=== PATIENT | female | born 1945 | race Caucasian/White ===

== ENCOUNTER 2016-07-08 14:13 | Inpatient (IN) | payer MEDICARE ==
[2016-07-08 20:23] LABS: Glucose,Whole Blood 93 mg/dL (75-99)
[2016-07-08 20:31] VITALS: BMI 29.3
[2016-07-08] MEDS: SODIUM CHLORIDE 0.9% 1,000 ML IV SCH (23:05)
[2016-07-09] MEDS: SODIUM CHLORIDE 0.9% 1,000 ML IV SCH ×2 (06:10→16:12)
[2016-07-09 07:53] LABS: Glucose,Whole Blood 96 mg/dL (75-99)
[2016-07-09 08:07] LABS: Basophils % (A) 1 %; CH 31.4; CHCM 32.8; Eosinophils # (A) 0.1 k/uL (0-0.7); Eosinophils % (A) 2 %; HCT 32.4 % (34.0-46.0); HDW 2.93; HGB 10.4 gm/dL (11.4-16.0); Luc # (Auto) 0.07; Luc % (Auto) 2; Lymphocytes # (A) 0.5 k/uL (1.0-4.8); Lymphocytes % (A) 13 %; MCH 30.7 pg (25.0-35.0); MCV 96.1 fL (80.0-100.0); Mean Platelet Volume 8.1; Monocytes # (A) 0.3 k/uL (0-1.0); Monocytes % (A) 7 %; Neutrophils # (A) 2.7 k/uL (1.3-7.7); Neutrophils % (A) 74 %; RBC 3.37 m/uL (3.80-5.40); RDW 14.9 % (11.5-15.5); WBC 3.6 k/uL (3.8-10.6); WBC (Perox) 3.87
[2016-07-09 08:18] LABS: Anion Gap 14 mmol/L; Blood Urea Nitrogen 7 mg/dL (7-17); Calcium 8.3 mg/dL (8.4-10.2); Carbon Dioxide 24 mmol/L (22-30); Chloride 101 mmol/L (98-107); Glucose 95 mg/dL (74-99); Magnesium 1.3 mg/dL (1.6-2.3); Non-African American GFR(MDRD) >60 (>60 ml/min/1.73 sqM); Potassium 3.4 mmol/L (3.5-5.1); Sodium 139 mmol/L (137-145)
[2016-07-09] MEDS ORDERED: PANTOPRAZOLE 40 MG/10 ML VIAL IVP SCH (09:00)
[2016-07-09] MEDS: INSULIN LISPRO (humaLOG) 300 UNIT/3 ML VIAL SQ SCH ×4 (09:21→19:55)
[2016-07-09 11:28] LABS: Glucose,Whole Blood 102 mg/dL (75-99)
[2016-07-09] MEDS ORDERED: Potassium Replacement Protocol 1 EACH MISC MISCELLANE PRN (12:44)
[2016-07-09] MEDS ORDERED: NITROGLYCERIN SL TABS 0.4 MG TAB SUBLINGUAL PRN (12:45)
[2016-07-09] MEDS ORDERED: HYDROcodone/APAP 5-325MG 1 EACH TAB PO PRN (12:45)
[2016-07-09] MEDS: FLUCONAZOLE IN NACL,ISO-OSM 100 MG in SALINE 1 50ML.BAG IVPB SCH (13:35)
[2016-07-09] MEDS: MAGNESIUM SULFATE-D5W PMX 1 GM in DEXTROSE/WATER 1 100ML.BAG IVPB SCH ×3 (14:51→20:06)
--- NOTE | 2016-07-09 15:09 | FL ---
EXAMINATION TYPE: FL barium swallow w video DATE OF EXAM: 07/09/2016 2:41 PM MODIFIED SWALLOW / DEGLUTITION STUDY CLINICAL HISTORY: Dysphagia since CABG procedure mid-May. Choking and difficulty swallowing as w ell as weight loss.. TECHNIQUE: Deglutition study is performed utilizing thin liquid barium, honey and nectar thick liqui d barium, barium thick applesauce, and barium coated cracker. A total of 1.52 minutes of fluoroscopic time was utilized during procedure. COMPARISON: None. FINDINGS: Exam is suboptimal due to patient retching and vomiting especially with less viscous modali ties. There is difficulty initiating swallowing. Diminished mastication is seen with solid modalities tested. There is no evidence of penetration or aspiration with any modality tested. No significant pharyngeal residue was appreciated. IMPRESSION: Suboptimal study without penetration or aspiration noted. Please refer to speech therapi st notes for further details if necessary.
[2016-07-09] MEDS: IPRATROPIUM-ALBUTEROL 3 ML NEB INHALATION SCH ×2 (15:22→22:50)
[2016-07-09] MEDS: AMIODARONE 200 MG TAB PO SCH ×3 (15:30→19:56)
[2016-07-09] MEDS: POTASSIUM CHLORIDE 10 MEQ, LIDOCAINE 2% INJ 10 MG in SODIUM CHLORIDE 0.9% 100 ML IVPB SCH ×2 (16:06→17:26)
[2016-07-09] MEDS: POTASSIUM CHLORIDE 10 MEQ in WATER FOR INJECTION 1 100ML.BAG IVPB SCH ×2 (16:20→17:29)
[2016-07-09 16:55] LABS: Glucose,Whole Blood 121 mg/dL (75-99)
[2016-07-09 19:53] LABS: Glucose,Whole Blood 122 mg/dL (75-99)
[2016-07-09] MEDS: ATORVASTATIN 80 MG TAB PO SCH (19:55)
[2016-07-09] MEDS: ONDANSETRON 4 MG/2 ML VIAL IVP PRN (20:03)
--- NOTE | 2016-07-09 20:10 | HP ---
Patient with significant cardiac history with coronary artery disease and cardiac catheterization and stent placement in the past, came in, was admitted to [facility], subsequently transferred here. Patient was admitted with nausea, vomiting and dysphagia. Patient's symptoms did not improve for 2 to 3 days, after which patient was subsequently transferred here for further evaluation by Gastroenterology. Patient is on Protonix at this point of time. Patient underwent recent cardiac catheterization. Patient is on aspirin. The patient had a recent CABG. When I evaluated, patient is not nauseous and nausea is improved with Zofran. Patient denied any vomiting, but patient does have dysphagia, does not have any significant oral thrush. Patient denied any odynophagia. The patient's dysphagia started about 3 days ago all of a sudden, she says, worse with solids than liquids and because of which I ordered a barium swallow. Barium swallow apparently was within normal limits. Speech therapy evaluated the patient. I believe the patient's swallow problems are secondary to cognition rather than anything else and I also consulted Gastroenterology and started empirically on fluconazole as patient is complaining of other symptoms that are consistent with oral candidiasis. Although I did not see any significant candidal infection of the tongue at this point of time, the patient was treated for oral candidiasis in the past as well. Patient denied any fever, chills. Patient denied any shortness of breath or runny nose. Patient has not been getting Lasix or any of her medications at this point of time because the patient is not able to swallow anything. Will try and give her important medications like aspirin beyond that and amiodarone and fluconazole will be in the form of IV. Her past medical history is significant for CAD, NSTEMI and CABG in the past and atrial fibrillation, coronary artery disease, diabetes mellitus, hyperlipidemia, breast surgery, cholecystectomy, coronary artery bypass grafting, cardiac catheterization stent placement, tonsillectomy, right mastectomy, radiation therapy, recent CABG. ROS: All other systems were reviewed and were negative. SOCIAL HISTORY: Former smoker, quit smoking last year. Denied any alcohol abuse or any drug abuse. FAMILY HISTORY: Brother had a myocardial infarction ( ). Son had coronary artery disease, myocardial infarction. Mother had coronary disease and myocardial infarction. Home medications include: 1. Atorvastatin and 2. Lasix. Patient was treated for diastolic dysfunction and heart failure during her last hospitalization. 3. Hydrocodone/acetaminophen. ALLERGIES: No known drug allergies. PHYSICAL EXAMINATION: Temperature 97.7, pulse of 60, respiratory rate of 18, blood pressure is 138/76, saturating at 98% on room air. GENERAL: The patient appears to have some speech abnormality, really appears to be secondary to swollen tongue rather than any central speech abnormality. Alert and oriented x3. HEENT: Pupils are round and equally reacting to light. EOMI. No scleral icterus. No conjunctival pallor. Normocephalic, atraumatic. No pharyngeal erythema. No thyromegaly. CARDIOVASCULAR: S1 and S2 present. No murmurs, rubs, or gallops. PULMONARY: Chest is clear to auscultation, no wheezing or crackles. ABDOMEN: Soft, nontender, nondistended, normoactive bowel sounds. No palpable organomegaly. MUSCULOSKELETAL: No joint swelling or deformity. EXTREMITIES: No cyanosis, clubbing, or pedal edema. NEUROLOGICAL: Gross neurological examination did not reveal any focal deficits. SKIN: No rashes. LABORATORY DATA: CBC, CMP are abnormal for low potassium of 3.4 and low magnesium of 1.2, hemoglobin 10.4. The barium swallow as mentioned above. ASSESSMENT AND PLAN: 1. Dysphagia with nausea, vomiting. Nausea, vomiting resolved. Patient was started on fluconazole and will consult Gastroenterology. 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 2. Paroxysmal atrial fibrillation, rate controlled at this point of time. 3. Patient is on amiodarone, which we will try and give her so that her atrial fibrillation is not frustrated. 4. Diastolic dysfunction heart failure, not in acute exacerbation. I do not believe Lasix is necessary at this point of time, as patient is not taking much p.o. 5. Type 2 diabetes mellitus. 6. Hypertension. 7. History of breast cancer in remission. 8. Coronary artery disease. 9. Hypomagnesemia and hypokalemia secondary to nausea, vomiting, which will be supplemented. 10. For above-mentioned chronic medical problems, I will go ahead and continue her home medications. ROSIOD
[2016-07-09 22:37] VITALS: RESP 16
[2016-07-10 07:19] LABS: Glucose,Whole Blood 87 mg/dL (75-99)
[2016-07-10] MEDS: IPRATROPIUM-ALBUTEROL 3 ML NEB INHALATION SCH ×4 (07:31→19:09)
[2016-07-10 07:33] LABS: Anion Gap 8 mmol/L; Blood Urea Nitrogen 7 mg/dL (7-17); Calcium 8.1 mg/dL (8.4-10.2); Carbon Dioxide 24 mmol/L (22-30); Chloride 102 mmol/L (98-107); Glucose 95 mg/dL (74-99); Non-African American GFR(MDRD) >60 (>60 ml/min/1.73 sqM); Potassium 3.6 mmol/L (3.5-5.1); Sodium 134 mmol/L (137-145)
[2016-07-10] MEDS: SODIUM CHLORIDE 0.9% 1,000 ML IV SCH ×3 (07:39→20:53)
[2016-07-10] MEDS: CARVEDILOL 12.5 MG TAB PO SCH ×2 (07:58→08:06)
[2016-07-10] MEDS: INSULIN LISPRO (humaLOG) 300 UNIT/3 ML VIAL SQ SCH ×4 (07:58→20:50)
[2016-07-10] MEDS: LOSARTAN 25 MG TAB PO SCH (07:59)
[2016-07-10] MEDS: ASPIRIN 81 MG CHEW PO SCH ×2 (07:59→08:06)
[2016-07-10] MEDS: AMIODARONE 200 MG TAB PO SCH ×3 (07:59→20:46)
[2016-07-10] MEDS: PANTOPRAZOLE 40 MG TABLET PO SCH ×2 (07:59→08:06)
[2016-07-10] MEDS: FLUCONAZOLE IN NACL,ISO-OSM 100 MG in SALINE 1 50ML.BAG IVPB SCH (07:59)
--- NOTE | 2016-07-10 08:06 | XR ---
EXAMINATION TYPE: XR chest 1V DATE OF EXAM: 07/10/2016 7:36 AM CLINICAL HISTORY: Difficulty breathing and CHF progress study. History of CABG in May. TECHNIQUE: Single AP portable upright view of the chest is obtained. COMPARISON: Chest x-ray from June 07, 2016 FINDINGS: Post CABG changes with mediastinal clips and sternal wires is present. There is underlying emphysematous change with small left pleural effusion and associated left basilar atelectasis and/or infiltrate. There is improved central vascular congestion versus prior. Cardiomegaly is redemonstrate d. Right lung remains clear. Osseous structures are demineralized. Surgical clips overlie the right b reast. IMPRESSION: Chronic emphysematous change and cardiomegaly with persistent small left pleural effusion and associated left basilar atelectasis and/or infiltrate all redemonstrated.
[2016-07-10] MEDS: hydrALAZINE HCL 20 MG/ML 1 ML VIAL IVP PRN ×2 (08:14→20:54)
[2016-07-10 09:11] LABS: Basophils % (A) 0 %; CH 31.6; CHCM 33.3; Eosinophils # (A) 0.1 k/uL (0-0.7); Eosinophils % (A) 2 %; HCT 33.7 % (34.0-46.0); HDW 3.01; HGB 11.1 gm/dL (11.4-16.0); Luc # (Auto) 0.09; Luc % (Auto) 2; Lymphocytes # (A) 0.5 k/uL (1.0-4.8); Lymphocytes % (A) 13 %; MCH 31.2 pg (25.0-35.0); MCHC 32.8 g/dL (31.0-37.0); MCV 95.2 fL (80.0-100.0); Mean Platelet Volume 7.8; Monocytes # (A) 0.3 k/uL (0-1.0); Monocytes % (A) 7 %; Neutrophils # (A) 3.1 k/uL (1.3-7.7); Neutrophils % (A) 76 %; RBC 3.54 m/uL (3.80-5.40); WBC 4.1 k/uL (3.8-10.6); WBC (Perox) 4.74
--- NOTE | 2016-07-10 11:24 | PN ---
The patient is admitted for dysphagia, although dysphagia appears to be psychogenic. Patient did have a barium swallow. Please refer to speech therapy evaluation as well. Patient was evaluated by gastroenterology and patient apparently has upper gastrointestinal endoscopy, which is within normal limits and extensive counseling and support was provided today and we also consult psychiatry to further support purposes and possible SSRIs that can help her, we will see if she can tolerate diet today. She did not take any of her medications today. We will encourage her to take medications. Patient needs some support at home as well for her psychogenic dysphagia. REVIEW OF SYSTEMS: CARDIOVASCULAR: No chest pain, no orthopnea, no PND, no palpitations. PULMONARY: Denied any shortness of breath. No cough or hemoptysis. GASTROINTESTINAL: Continue dysphagia. The patient threw up her pills and did not take any of her pills today morning, but she did take her pills yesterday. NEUROLOGIC: No headaches, no weakness, no numbness. Medications were reviewed. PHYSICAL EXAMINATION: VITAL SIGNS: Temperature 96.0, pulse of 60, respiratory rate of 16, blood pressure 167/75 and has gone up to around 200/88. GENERAL: The patient is distress to know that she has psychogenic dysphagia, although patient is not malingering. Patient is alert and oriented x3. HEENT: Pupils are round and equally reacting to light. EOMI. No scleral icterus. No conjunctival pallor. Normocephalic, atraumatic. No pharyngeal erythema. No thyromegaly. CARDIOVASCULAR: S1 and S2 present. No murmurs, rubs, or gallops. PULMONARY: Chest is clear to auscultation, no wheezing or crackles. ABDOMEN: Soft, nontender, nondistended, normoactive bowel sounds. No palpable organomegaly. MUSCULOSKELETAL: No joint swelling or deformity. EXTREMITIES: No cyanosis, clubbing, or pedal edema. NEUROLOGICAL: Gross neurological examination did not reveal any focal deficits. SKIN: No rashes. LABORATORY DATA: CBC, CMP are abnormal for mildly low sodium of 134 secondary to rehydration. We will continue with IV fluids and potassium of 3.6. Magnesium 1.2 even after supplementation. I will go ahead and order 4 grams of magnesium today and repeat magnesium tomorrow. ASSESSMENT AND PLAN: 1. Dysphagia psychogenic as mentioned above and management as mentioned above. 2. Paroxysmal atrial fibrillation, fairly rate-controlled at this point of time. Patient was encouraged to take her medications. 3. Coronary artery disease with recent coronary artery bypass grafting. Continue her home medications. Patient is encouraged to take medications as mentioned above. 4. Chronic diastolic dysfunction heart failure, without any acute exacerbation, will not need any diuretic therapy at this point of time, because of poor oral intake. 5. Type 2 diabetes mellitus. 6. Hypertension. 7. History of breast cancer in remission. 8. Hypomagnesemia and hyponatremia due to intravascular volume depletion, will correct it with replacement.
[2016-07-10 12:04] LABS: Glucose,Whole Blood 95 mg/dL (75-99)
[2016-07-10] MEDS: MAGNESIUM SULFATE-D5W PMX 1 GM in DEXTROSE/WATER 1 100ML.BAG IVPB SCH ×4 (14:41→19:16)
[2016-07-10 16:27] LABS: Glucose,Whole Blood 147 mg/dL (75-99)
[2016-07-10 20:31] LABS: Glucose,Whole Blood 161 mg/dL (75-99)
[2016-07-10] MEDS ORDERED: LORazepam 2 MG/ML SYRINGE IV PRN (20:43)
[2016-07-10] MEDS: ATORVASTATIN 80 MG TAB PO SCH (20:58)
[2016-07-11] MEDS: ONDANSETRON 4 MG/2 ML VIAL IVP PRN (00:07)
[2016-07-11] MEDS: IPRATROPIUM-ALBUTEROL 3 ML NEB INHALATION SCH ×4 (07:30→19:17)
[2016-07-11 07:44] LABS: Glucose,Whole Blood 102 mg/dL (75-99)
[2016-07-11] MEDS: CARVEDILOL 12.5 MG TAB PO SCH (08:14)
[2016-07-11] MEDS: PANTOPRAZOLE 40 MG TABLET PO SCH (08:14)
[2016-07-11] MEDS: ASPIRIN 81 MG CHEW PO SCH (08:14)
[2016-07-11] MEDS: LOSARTAN 25 MG TAB PO SCH (08:14)
[2016-07-11] MEDS: AMIODARONE 200 MG TAB PO SCH (08:14)
[2016-07-11] MEDS: INSULIN LISPRO (humaLOG) 300 UNIT/3 ML VIAL SQ SCH ×3 (08:15→17:28)
[2016-07-11] MEDS: SODIUM CHLORIDE 0.9% 1,000 ML IV SCH ×2 (08:16→16:16)
[2016-07-11] MEDS: FLUCONAZOLE IN NACL,ISO-OSM 100 MG in SALINE 1 50ML.BAG IVPB SCH (08:27)
[2016-07-11 08:36] LABS: Anion Gap 10 mmol/L; Blood Urea Nitrogen 7 mg/dL (7-17); Carbon Dioxide 23 mmol/L (22-30); Chloride 102 mmol/L (98-107); Glucose 102 mg/dL (74-99); Non-African American GFR(MDRD) >60 (>60 ml/min/1.73 sqM); Sodium 135 mmol/L (137-145)
[2016-07-11] MEDS ORDERED: Potassium Replacement Protocol 1 EACH MISC MISCELLANE PRN ×2 (11:04→11:05)
[2016-07-11 11:36] LABS: Glucose,Whole Blood 136 mg/dL (75-99)
--- NOTE | 2016-07-11 12:11 | P.CON ---
Psychiatric Consult - . Consult date: 07/11/16 Consult:: 07/11/16 12:03 IDENTIFYING DATA: 71-year-old female patient HPI: Patient admitted to the medical floor at [facility] with difficulties with nausea/vomiting and dysphagia. There has been concerns about psychotropic dysphagia the patient's GI workup appears his been normal. She had been transferred from [facility]. She does state that she feels better today. She states that she had CABG and she has been in and out of the hospital since. She admits to having had trouble swallowing which still does act up but she is able to eat. She has after 3-4 bites she was throwing things back up again. She has been able to sleep okay. She says she thinks there is some depression a while ago but it's better now. She denies any significant anxiety. Denies being a significant worrier. She does state that the last few days have been the best that she felt. PAST PSYCHIATRIC HISTORY: She has no psychiatric history. She's never seen a psychiatrist. Never been on psychotropic medications. She's never had any psychiatric hospitalizations. She has never tried to hurt herself. PMH: Coronary artery disease, and NSTEMI, CABG, A. fib, diabetes mellitus, hyperlipidemia, breast surgery, cholecystectomy, cardiac cath with stent placement, tonsillectomy, right mastectomy, radiation therapy, ALLERGIES: No known ALLERGIES. MEDICATIONS: Arcade when necessary, DuoNeb, Cordarone, aspirin, Lipitor, Coreg, fluconazole, Apresoline, Humalog, Ativan when necessary, Cozaar, potassium when necessary, Nitrostat when necessary, Zofran when necessary, Protonix, KCl CHEMICAL DEPENDENCY HISTORY: States she has an alcoholic drink, Shelby, 2 times a year on her birthday and New Year's. FAMILY PSYCHIATRIC HISTORY: Denies FAMILY CHEMICAL DEPENDENCY HISTORY: None known at this time SOCIAL HISTORY: She currently lives by herself in an apartment complex. She does have friends there. She been once and . She has 3 children and 6 grandchildren, her middle son is from an [place]. MENTAL STATUS EXAM: She is alert and cooperative with the interview. Her speech is fluent, not rapid or pressured. Thought processes organized. Her mood is described as "feel pretty good." He denies any thoughts of harm to self or others. No evidence of psychosis or agitation. Cognitively she appears to be grossly intact. IMPRESSIONS: Adjustment disorder with depressed mood, overall improved PLAN: We'll provide outpatient referral for outpatient counseling to continue to help with mood and coping skills with multiple recent medical stressors. Do not recommend antidepressant treatment at this point in time, continue to monitor for any significant depressive or anxiety symptoms.
[2016-07-11] MEDS: POTASSIUM CHLORIDE 10 MEQ in WATER FOR INJECTION 1 100ML.BAG IVPB SCH ×2 (13:21→14:56)
[2016-07-11] MEDS: POTASSIUM CHLORIDE 10 MEQ, LIDOCAINE 2% INJ 10 MG in SODIUM CHLORIDE 0.9% 100 ML IVPB SCH ×3 (14:57→17:19)
[2016-07-11 16:28] VITALS: BP 152/72; PULSE 57; TEMP 97.5
[2016-07-11 17:08] LABS: Glucose,Whole Blood 124 mg/dL (75-99)
--- NOTE | 2016-07-12 18:31 | DS ---
DATE OF ADMISSION: 07/08/2016 DATE OF DISCHARGE: 07/11/2016 Patient was admitted with dysphagia. The patient had workup. All workup was negative including barium swallow and upper gastrointestinal endoscopy that was done as an outpatient recently and patient was diagnosed with psychogenic polydipsia. Please refer to speech therapy dictation. After extensive counseling the patient is able to eat okay at this time, although she says she is doing it slowly. Patient did take her medications without nausea, vomiting. After psychiatry evaluation, patient probably will be discharged today. REVIEW OF SYSTEMS: CARDIOVASCULAR: No chest pain, no orthopnea, no PND, no palpitations. PULMONARY: Denied any shortness of breath. No cough or hemoptysis. GASTROINTESTINAL: As described in the interval history. NEUROLOGIC: No headaches, no weakness, no numbness. Medications were reviewed. PHYSICAL EXAMINATION: VITAL SIGNS: Temperature is pulse of 70, respiratory rate of 16, blood pressure is 190/87, saturating at 98% on room. GENERAL: The patient is alert and oriented x3, not in any acute distress. Well developed, well nourished. HEENT: Pupils are round and equally reacting to light. EOMI. No scleral icterus. No conjunctival pallor. Normocephalic, atraumatic. No pharyngeal erythema. No thyromegaly. CARDIOVASCULAR: S1 and S2 present. No murmurs, rubs, or gallops. PULMONARY: Chest is clear to auscultation, no wheezing or crackles. ABDOMEN: Soft, nontender, nondistended, normoactive bowel sounds. No palpable organomegaly. MUSCULOSKELETAL: No joint swelling or deformity. EXTREMITIES: No cyanosis, clubbing, or pedal edema. NEUROLOGICAL: Gross neurological examination did not reveal any focal deficits. SKIN: No rashes. LABORATORY DATA: Potassium is low at 3.0, which will be supplemented and sodium is 135, improved compared to yesterday. This is secondary to dehydration from poor oral intake and hypovolemic hyponatremia, magnesium improved. ASSESSMENT AND PLAN: 1. Dysphagia, psychogenic as mentioned above. Management as mentioned. 2. Paroxysmal atrial fibrillation, rate controlled presently. 3. Coronary artery disease with recent coronary artery bypass grafting. 4. Chronic diastolic dysfunction. Patient is fairly volemic, actually on the hypovolemic side. I will not start any new Lasix at this point of time. Patient may need down the line. 5. Diabetes mellitus. 6. Hypertension. 7. History of breast cancer in remission. 8. Hypomagnesemia, corrected. 9. Hyponatremia due to intravascular volume depletion which improved. 10. Hypokalemia secondary to hypomagnesemia which we will supplement and then expected to be corrected and component of hypokalemia secondary to nausea, vomiting. Patient will be discharged today. Please refer to ( ) for further details of discharge medications and any SSRA recommendations as per psychiatry. DISCHARGE DIET: Cardiac. ACTIVITY: As tolerated. The patient will follow with his primary care physician in 3 to 7 days. ( ) discharge process.
== END 2016-07-11 19:10 | disposition home or self-care (01) | DRG 641 ==
LOC: 5MS5E 18:42
PROVIDERS: ADMIT Internal Medicine; ATTEND Internal Medicine
DX: E86.0 Dehydration (principal); E86.1 Hypovolemia; I48.0 Paroxysmal atrial fibrillation; R13.10 Dysphagia, unspecified; I50.32 Chronic diastolic (congestive) heart failure; I11.0 Hypertensive heart disease with heart failure; E87.1 Hypo-osmolality and hyponatremia; E83.42 Hypomagnesemia; F43.21 Adjustment disorder with depressed mood; R11.2 Nausea with vomiting, unspecified; R63.1 Polydipsia; I25.2 Old myocardial infarction; E11.9 Type 2 diabetes mellitus without complications; E78.5 Hyperlipidemia, unspecified; E87.6 Hypokalemia; I25.10 Atherosclerotic heart disease of native coronary artery without angina pectoris; Z95.1 Presence of aortocoronary bypass graft; Z95.5 Presence of coronary angioplasty implant and graft; Z85.3 Personal history of malignant neoplasm of breast; Z87.891 Personal history of nicotine dependence; Z82.49 Family history of ischemic heart disease and other diseases of the circulatory system; Z79.82 Long term (current) use of aspirin; Z79.891 Long term (current) use of opiate analgesic; Z79.899 Other long term (current) drug therapy; Z90.49 Acquired absence of other specified parts of digestive tract; Z90.11 Acquired absence of right breast and nipple; Z92.3 Personal history of irradiation; Z86.19 Personal history of other infectious and parasitic diseases; Z79.84 Long term (current) use of oral hypoglycemic drugs
CPT/HCPCS: 71010; 74230; 80048; 83735; 85025; 94640

== ENCOUNTER 2016-07-20 15:18 | Inpatient (IN) | payer MEDICARE ==
--- NOTE | 2016-07-20 15:43 | ED ---
General Adult HPI - General Chief complaint: Nausea/Vomiting/Diarrhea Stated complaint: Weakness Time Seen by Provider: 07/20/16 15:25 Source: EMS, RN notes reviewed Mode of arrival: EMS - History of Present Illness Initial comments: This is a 71-year-old female who presents to the emergency department via [facility]. Patient was initially seen her for nausea vomiting 4 days dehydration and generalized weakness. According to the ER document [facility] the patient has an elevated troponin of 0.1 though the patient was not expressing any chest pain difficulty breathing or any palpitations. Patient currently is still complaining of being generally weak but denies any pain anywhere. Patient denies headache patient denies any lightheadedness dizziness or near syncopal episode. Patient denies any palpitations patient denies chest pain difficulty breathing shortness breath per patient denies any recent fever or chills. Patient denies any abdominal pain. Patient states she has been vomiting over the last 4-5 days and now is been having quite a bit of diarrhea. Patient denies any injury or trauma. - Related Data Home Medications Medication Instructions Recorded Confirmed Atorvastatin [Lipitor] 80 mg PO HS 06/06/16 07/20/16 Furosemide [Lasix] 40 mg PO DAILY 06/06/16 07/20/16 Acetaminophen Tab [Tylenol Tab] 650 mg PO Q4H PRN 07/08/16 07/20/16 Carvedilol [Coreg] 25 mg PO DAILY 07/08/16 07/20/16 HYDROcodone/APAP 5-325MG [[place] 1 tab PO BID PRN 07/08/16 07/20/16 5-325] Nitroglycerin Sl Tabs [Nitrostat] 0.4 mg SUBLINGUAL Q5M PRN 07/08/16 07/20/16 Sennosides-Docusate Sodium 1 tab PO HS PRN 07/08/16 07/20/16 [Senokot-S] Amiodarone [Cordarone] 200 mg PO DAILY 07/20/16 07/20/16 Nystatin 100,000 Unit/ml Susp 4 ml PO QID 07/20/16 07/20/16 [Mycostatin Oral Susp] Ondansetron [Zofran ODT] 4 mg PO Q12H PRN 07/20/16 07/20/16 Previous Rx's Medication Instructions Recorded metFORMIN HCL [Glucophage] 500 mg PO BID #0 07/23/15 Aspirin 81 mg PO DAILY chew 05/21/16 Bisacodyl [Dulcolax] 10 mg RECTAL DAILY PRN #0 supp 05/21/16 Ipratropium-Albuterol Nebulize 3 ml INHALATION RT-QID #120 05/21/16 [Duoneb 0.5 mg-3 mg/3 ml Soln] ampul.neb Losartan Potassium [Cozaar] 25 mg PO DAILY #30 tablet 05/21/16 Pantoprazole [Protonix] 40 mg PO AC-BRKFST tablet. 05/21/16 Potassium Chloride ER [K-Dur 10] 10 meq PO DAILY #30 tab 05/21/16 Allergies Allergy/AdvReac Type Severity Reaction Status Date / Time methylene blue Allergy Unknown Verified 07/20/16 16:30 Review of Systems ROS Statement: Those systems with pertinent positive or pertinent negative responses have been documented in the HPI. ROS Other: All systems not noted in ROS Statement are negative. Past Medical History Past Medical History: Atrial Fibrillation, Coronary Artery Disease (CAD), Cancer , Diabetes Mellitus, Hyperlipidemia, Hypertension, Myocardial Infarction ([place]) Additional Past Medical History / Comment(s): CAD and previous NSTEMI and CABG, paroxysmal AFIB, Breast CA, Last Myocardial Infarction Date:: date unknown History of Any Multi-Drug Resistant Organisms: None Reported Past Surgical History: Breast Surgery, Cholecystectomy, Coronary Bypass/CABG, Heart Catheterization With Stent, Tonsillectomy Additional Past Surgical History / Comment(s): Rt Mastectomy with radiation treatment, CABG May 2017 Past Anesthesia/Blood Transfusion Reactions: No Reported Reaction Date of Last Stent Placement:: dated unknown Past Psychological History: No Psychological Hx Reported Smoking Status: Former smoker Past Alcohol Use History: Rare Additional Past Alcohol Use History / Comment(s): once a year Past Drug Use History: None Reported - Past Family History Brother(s) Family Medical History: Chest Pain / Angina, Myocardial Infarction (NM) Additional Family Medical History / Comment(s): at age 32 Son(s) Family Medical History: Coronary Artery Disease (CAD), Myocardial Infarction (NM ) Additional Family Medical History / Comment(s): at age 38 Mother Family Medical History: Coronary Artery Disease (CAD), Myocardial Infarction (NM ) Father Family Medical History: No Reported History General Exam - General Exam Comments Initial Comments: GENERAL: Patient is well-developed and well-nourished. Patient is nontoxic and well- hydrated and is in while distress and appears lethargic. ENT: Neck is soft and supple. No significant lymphadenopathy is noted. Oropharynx is clear. Moist mucous membranes. Neck has full range of motion without eliciting any pain. EYES: The sclera were anicteric and conjunctiva were pink and moist. Extraocular movements were intact and pupils were equal round and reactive to light. Eyelids were unremarkable. PULMONARY: Unlabored respirations. Good breath sounds bilaterally. No audible rales rhonchi or wheezing was noted. CARDIOVASCULAR: There is a regular rate and rhythm without any murmurs gallops or rubs. ABDOMEN: Soft and nontender with normal bowel sounds. No palpable organomegaly was noted. There is no palpable pulsatile mass. SKIN: Skin is clear with no lesions or rashes and otherwise unremarkable. NEUROLOGIC: Patient is alert and oriented x3. Cranial nerves II through XII are grossly intact. Motor and sensory are also intact. Normal speech, volume and content. Symmetrical smile. MUSCULOSKELETAL: Normal extremities with adequate strength and full range of motion. No lower extremity swelling or edema. No calf tenderness. LYMPHATICS: No significant lymphadenopathy is noted PSYCHIATRIC: Normal psychiatric evaluation. Course Vital Signs 07/20/16 07/20/16 15:27 16:02 Temperature 97.5 F L Pulse Rate 76 73 Respiratory 18 15 Rate Blood Pressure 169/76 181/82 O2 Sat by Pulse 98 97 Oximetry Medical Decision Making - Medical Decision Making EKG shows normal sinus rhythm at 77 bpm. It was on 36 QRS is 88 QT interval is 214 QTC is 242 EKG shows some T-wave inversions in leads V1 and V2 and V3 and V4 and V5 as well as inferiorly in leads II, III, and F aVF. Patient's troponin was repeated in the emergency department was the same as it was at [facility] patient got a liter of fluid in the hospital here feeling little bit better I spoke with Holly vazquez and she agreed to accept the patient a half with Dr. Rizo - Lab Data Result diagrams: 07/20/16 16:00 07/20/16 16:00 Lab Results 07/20/16 07/20/16 07/20/16 Range/Units 16:00 16:00 16:00 WBC 9.6 (3.8-10.6) k/uL RBC 3.82 (3.80-5.40) m/uL Hgb 11.8 (11.4-16.0) gm/dL Hct 35.0 (34.0-46.0) % MCV 91.5 (80.0-100.0) fL MCH 31.0 (25.0-35.0) pg MCHC 33.9 (31.0-37.0) g/dL RDW 15.0 (11.5-15.5) % Plt Count 260 (150-450) k/uL Neutrophils % 89 % Lymphocytes % 3 % Monocytes % 6 % Eosinophils % 0 % Basophils % 2 % Neutrophils # 8.5 H (1.3-7.7) k/uL Lymphocytes # 0.3 L (1.0-4.8) k/uL Monocytes # 0.5 (0-1.0) k/uL Eosinophils # 0.0 (0-0.7) k/uL Basophils # 0.2 (0-0.2) k/uL Sodium 145 (137-145) mmol/L Potassium 3.2 L (3.5-5.1) mmol/L Chloride 98 (98-107) mmol/L Carbon Dioxide 29 (22-30) mmol/L Anion Gap 18 mmol/L BUN 24 H (7-17) mg/dL Creatinine 0.69 (0.52-1.04) mg/dL Est GFR (MDRD) Af Amer >60 (>60 ml/min/1.73 sqM) Est GFR (MDRD) Non-Af >60 (>60 ml/min/1.73 sqM) Glucose 163 H (74-99) mg/dL Calcium 9.1 (8.4-10.2) mg/dL Total Bilirubin 1.3 (0.2-1.3) mg/dL AST 22 (14-36) U/L ALT 34 (9-52) U/L Alkaline Phosphatase 99 (38-126) U/L Troponin I 0.104 H* (0.000-0.034) ng/mL Total Protein 6.4 (6.3-8.2) g/dL Albumin 3.7 (3.5-5.0) g/dL Urine Color Urine Appearance (Clear) Urine pH (5.0-8.0) Ur Specific [place] (1.001-1.035) Urine Protein (Negative) Urine Glucose (UA) (Negative) Urine Ketones (Negative) Urine Blood (Negative) Urine Nitrate (Negative) Urine Bilirubin (Negative) Urine Urobilinogen (<2.0) mg/dL Ur Leukocyte Esterase (Negative) Urine RBC (0-5) /hpf Urine WBC (0-5) /hpf Cellular Casts (0) /lpf Hyaline Casts (0-2) /lpf Granular Casts (0) /lpf Urine Mucus (None) /hpf 07/20/16 Range/Units 17:15 WBC (3.8-10.6) k/uL RBC (3.80-5.40) m/uL Hgb (11.4-16.0) gm/dL Hct (34.0-46.0) % MCV (80.0-100.0) fL MCH (25.0-35.0) pg MCHC (31.0-37.0) g/dL RDW (11.5-15.5) % Plt Count (150-450) k/uL Neutrophils % % Lymphocytes % % Monocytes % % Eosinophils % % Basophils % % Neutrophils # (1.3-7.7) k/uL Lymphocytes # (1.0-4.8) k/uL Monocytes # (0-1.0) k/uL Eosinophils # (0-0.7) k/uL Basophils # (0-0.2) k/uL Sodium (137-145) mmol/L Potassium (3.5-5.1) mmol/L Chloride (98-107) mmol/L Carbon Dioxide (22-30) mmol/L Anion Gap mmol/L BUN (7-17) mg/dL Creatinine (0.52-1.04) mg/dL Est GFR (MDRD) Af Amer (>60 ml/min/1.73 sqM) Est GFR (MDRD) Non-Af (>60 ml/min/1.73 sqM) Glucose (74-99) mg/dL Calcium (8.4-10.2) mg/dL Total Bilirubin (0.2-1.3) mg/dL AST (14-36) U/L ALT (9-52) U/L Alkaline Phosphatase (38-126) U/L Troponin I (0.000-0.034) ng/mL Total Protein (6.3-8.2) g/dL Albumin (3.5-5.0) g/dL Urine Color Yellow Urine Appearance Clear (Clear) Urine pH 6.0 (5.0-8.0) Ur Specific [place] 1.018 (1.001-1.035) Urine Protein 1+ H (Negative) Urine Glucose (UA) Trace H (Negative) Urine Ketones 2+ H (Negative) Urine Blood Negative (Negative) Urine Nitrate Negative (Negative) Urine Bilirubin 1+ H (Negative) Urine Urobilinogen 3.0 (<2.0) mg/dL Ur Leukocyte Esterase Negative (Negative) Urine RBC 1 (0-5) /hpf Urine WBC 3 (0-5) /hpf Cellular Casts 1 (0) /lpf Hyaline Casts 14 H (0-2) /lpf Granular Casts 2 (0) /lpf Urine Mucus Few H (None) /hpf Disposition Clinical Impression: Gastroenteritis, Dehydration, Elevated troponin Disposition: ADMITTED IP TO THIS [facility] Time of Disposition: 18:24
[2016-07-20 16:13] LABS: Basophils # (A) 0.2 k/uL (0-0.2); Basophils % (A) 2 %; CH 31.8; CHCM 34.9; Eosinophils % (A) 0 %; HDW 3.37; HGB 11.8 gm/dL (11.4-16.0); Luc # (Auto) 0.05; Luc % (Auto) 1; Lymphocytes # (A) 0.3 k/uL (1.0-4.8); Lymphocytes % (A) 3 %; MCHC 33.9 g/dL (31.0-37.0); MCV 91.5 fL (80.0-100.0); Mean Platelet Volume 8.6; Monocytes # (A) 0.5 k/uL (0-1.0); Monocytes % (A) 6 %; Neutrophils # (A) 8.5 k/uL (1.3-7.7); Neutrophils % (A) 89 %; RBC 3.82 m/uL (3.80-5.40); WBC 9.6 k/uL (3.8-10.6); WBC (Perox) 9.52
[2016-07-20 16:19] LABS: ALT 34 U/L (9-52); AST 22 U/L (14-36); Alkaline Phosphatase 99 U/L (38-126); Anion Gap 18 mmol/L; Blood Urea Nitrogen 24 mg/dL (7-17); Calcium 9.1 mg/dL (8.4-10.2); Carbon Dioxide 29 mmol/L (22-30); Chloride 98 mmol/L (98-107); Glucose 163 mg/dL (74-99); Non-African American GFR(MDRD) >60 (>60 ml/min/1.73 sqM); Potassium 3.2 mmol/L (3.5-5.1); Sodium 145 mmol/L (137-145); Total Bilirubin 1.3 mg/dL (0.2-1.3); Total Protein 6.4 g/dL (6.3-8.2)
[2016-07-20 18:00] LABS: Appearance,Urine Clear (Clear); Bilirubin,Urine 1+ (Negative); Glucose,Urine (UA) Trace (Negative); Granular Casts,Urine 2 /lpf (0); Ketones,Urine 2+ (Negative); Leukocyte Esterase,Urine Negative (Negative); Mucus,Urine Few /hpf; Nitrite,Urine Negative (Negative); Particle Count 4242; Protein,Urine 1+ (Negative); RBC,Urine 1 /hpf (0-5); Specific Gravity,Urine 1.018 (1.001-1.035); UA Billing (MACRO vs. MICRO) MICRO; WBC,Urine 3 /hpf (0-5)
[2016-07-20] MEDS ORDERED: SODIUM CHLORIDE 0.9% 1,000 ML IV ONE ×2 (18:03→18:47)
[2016-07-20 20:50] LABS: Glucose,Whole Blood 151 mg/dL (75-99)
[2016-07-20] MEDS ORDERED: BISACODYL 10 MG SUPP RECTAL PRN (20:58)
[2016-07-20] MEDS ORDERED: NITROGLYCERIN SL TABS 0.4 MG TAB SUBLINGUAL PRN (20:58)
[2016-07-20] MEDS ORDERED: SENNOSIDES-DOCUSATE SODIUM 1 EACH TAB PO PRN (20:58)
[2016-07-20] MEDS ORDERED: ACETAMINOPHEN TAB 325 MG TAB PO PRN (20:58)
[2016-07-20] MEDS ORDERED: Potassium Replacement Protocol 1 EACH MISC MISCELLANE PRN ×2 (21:01→21:34)
[2016-07-20] MEDS: INSULIN LISPRO (humaLOG) 300 UNIT/3 ML VIAL SQ SCH (21:50)
[2016-07-20] MEDS: ATORVASTATIN 80 MG TAB PO SCH (21:51)
[2016-07-20] MEDS: metFORMIN 500 MG TAB PO SCH (21:51)
[2016-07-20] MEDS: NYSTATIN 100,000 UNIT/ML SUSP 500,000 UNIT/5 ML CUP PO SCH (21:51)
[2016-07-20] MEDS: ONDANSETRON 4 MG/2 ML VIAL IVP PRN (21:55)
[2016-07-20] MEDS ORDERED: POTASSIUM CHLORIDE ER 20 MEQ TAB.ER PO SCH (22:00)
[2016-07-21] MEDS: POTASSIUM CHLORIDE 10 MEQ, LIDOCAINE 2% INJ 10 MG in SODIUM CHLORIDE 0.9% 100 ML IV SCH ×4 (01:06→11:43)
[2016-07-21 06:05] LABS: Glucose,Whole Blood 145 mg/dL (75-99)
[2016-07-21] MEDS: PANTOPRAZOLE 40 MG TABLET PO SCH (06:29)
[2016-07-21] MEDS: INSULIN LISPRO (humaLOG) 300 UNIT/3 ML VIAL SQ SCH ×4 (06:29→21:14)
[2016-07-21] MEDS: CARVEDILOL 12.5 MG TAB PO SCH (06:29)
[2016-07-21 06:55] LABS: Basophils % (A) 0 %; CH 31.1; CHCM 32.8; Eosinophils % (A) 0 %; HGB 10.6 gm/dL (11.4-16.0); Luc # (Auto) 0.07; Luc % (Auto) 1; Lymphocytes # (A) 0.5 k/uL (1.0-4.8); Lymphocytes % (A) 8 %; MCH 31.4 pg (25.0-35.0); MCHC 33.1 g/dL (31.0-37.0); Mean Platelet Volume 8.8; Monocytes # (A) 0.4 k/uL (0-1.0); Monocytes % (A) 7 %; Neutrophils # (A) 5.1 k/uL (1.3-7.7); Neutrophils % (A) 83 %; RBC 3.37 m/uL (3.80-5.40); RDW 14.8 % (11.5-15.5); WBC 6.1 k/uL (3.8-10.6); WBC (Perox) 6.02
[2016-07-21 07:10] LABS: Anion Gap 16 mmol/L; Blood Urea Nitrogen 22 mg/dL (7-17); Calcium 8.3 mg/dL (8.4-10.2); Carbon Dioxide 28 mmol/L (22-30); Chloride 104 mmol/L (98-107); Glucose 143 mg/dL (74-99); Non-African American GFR(MDRD) >60 (>60 ml/min/1.73 sqM); Potassium 3.2 mmol/L (3.5-5.1); Sodium 148 mmol/L (137-145)
[2016-07-21] MEDS ORDERED: Potassium Replacement Protocol 1 EACH MISC MISCELLANE PRN (08:13)
[2016-07-21 08:19] LABS: Hemoglobin A1C 5.7 % (4.2-6.1)
[2016-07-21] MEDS: IPRATROPIUM-ALBUTEROL 3 ML NEB INHALATION SCH ×5 (08:40→19:36)
--- NOTE | 2016-07-21 08:53 | P.CRDCN ---
History of Present Illness Consult date: 07/21/16 Requesting physician: Zhane Rizo Consult reason: congestive heart failure Chief complaint: Shortness of breath History of present illness: This is a 71-year-old female who was transferred here from [facility]. Patient underwent coronary artery bypass surgery in May of last year at which time she presented with a non-ST elevation myocardial infarction. Patient received a HALL to the LAD, saphenous vein graft to the diagonal branch, saphenous vein graft to the PDA with excursion of the left atrial appendage. History of hypertension, hyperlipidemia, paroxysmal atrial fibrillation, acute on chronic renal insufficiency, according to the patient, she's been extremely weak over the past few days, she also has had several episodes of nausea and vomiting. According to the patient she has noticed a worsening in her shortness of breath over the past 3-4 days as well. For these reasons she went to [facility], and was transferred here. Patient denies having any chest pain. Initial troponin on [place] 0.1. EKG on arrival here showed a normal sinus rhythm with inferior lateral ST-T wave changes. These changes were also noted on patient's prior EKGs. Blood pressure on arrival here 168/76, heart rate in the 70s, 98% on room air. Laboratory data was reviewed, hemoglobin 10.6, potassium 3.2, BUN 22, creatinine 0.5. Troponin 0.10, 0.10, at the time of my examination this morning , patient continues to feel extremely weak, currently receiving a breathing treatment at the time of my examination. Does appear to be mildly short of breath. Denies any chest pain. Past Medical History Past Medical History: Atrial Fibrillation, Coronary Artery Disease (CAD), Cancer , Diabetes Mellitus, Hyperlipidemia, Hypertension, Myocardial Infarction ([place]) Additional Past Medical History / Comment(s): 07/20/16 c/o weakness n/v. CAD and previous NSTEMI and CABG, paroxysmal AFIB, Breast CA, Last Myocardial Infarction Date:: date unknown History of Any Multi-Drug Resistant Organisms: None Reported Past Surgical History: Breast Surgery, Cholecystectomy, Coronary Bypass/CABG, Heart Catheterization With Stent, Tonsillectomy Additional Past Surgical History / Comment(s): Rt Mastectomy with radiation treatment, CABG , barium swallow,egd Past Anesthesia/Blood Transfusion Reactions: No Reported Reaction Date of Last Stent Placement:: dated unknown Past Psychological History: No Psychological Hx Reported Smoking Status: Former smoker Past Alcohol Use History: Rare Additional Past Alcohol Use History / Comment(s): started smoking in her teens, quit smoking 2013 Past Drug Use History: None Reported - Past Family History Brother(s) Family Medical History: Chest Pain / Angina, Myocardial Infarction ([place]) Additional Family Medical History / Comment(s): at age 32 Son(s) Family Medical History: Coronary Artery Disease (CAD), Myocardial Infarction (AL ) Additional Family Medical History / Comment(s): at age 38 Mother Family Medical History: Coronary Artery Disease (CAD), Myocardial Infarction ([place] ) Father Family Medical History: No Reported History Medications and Allergies Home Medications Medication Instructions Recorded Confirmed Type Atorvastatin [Lipitor] 80 mg PO HS 06/06/16 07/20/16 History Furosemide [Lasix] 40 mg PO DAILY 06/06/16 07/20/16 History Acetaminophen Tab [Tylenol Tab] 650 mg PO Q4H PRN 07/08/16 07/20/16 History Carvedilol [Coreg] 25 mg PO DAILY 07/08/16 07/20/16 History HYDROcodone/APAP 5-325MG [[place] 1 tab PO BID PRN 07/08/16 07/20/16 History 5-325] Nitroglycerin Sl Tabs [Nitrostat] 0.4 mg SUBLINGUAL Q5M PRN 07/08/16 07/20/16 History Sennosides-Docusate Sodium 1 tab PO HS PRN 07/08/16 07/20/16 History [Senokot-S] Amiodarone [Cordarone] 200 mg PO DAILY 07/20/16 07/20/16 History Nystatin 100,000 Unit/ml Susp 4 ml PO QID 07/20/16 07/20/16 History [Mycostatin Oral Susp] Ondansetron [Zofran ODT] 4 mg PO Q12H PRN 07/20/16 07/20/16 History Allergies Allergy/AdvReac Type Severity Reaction Status Date / Time methylene blue Allergy Unknown Verified 07/20/16 16:30 Physical Exam Vitals: Vital Signs Temp Pulse Pulse Resp BP BP Pulse Ox 07/21/16 08:00 98.6 F 73 16 157/71 97 07/21/16 03:08 98.3 F 78 18 166/83 99 07/21/16 00:00 99.5 F 79 18 166/80 98 07/20/16 20:00 97.1 F L 80 16 166/87 97 07/20/16 19:12 77 16 186/83 96 Intake and Output 07/20/16 07/21/16 07/21/16 22:59 06:59 14:59 Intake Total 800 1000 Balance 800 1000 Intake: IV 800 1000 Potassium Chloride 10 meq 800 200 Lidocaine 2% Inj 10 mg In Sodium Chloride 0.9% 100 ml @ 100 mls/hr IV Q1HR [facility] Rx#:[id number] Sodium Chloride 0.9% 1, 800 000 ml @ 100 mls/hr IV . Q10H ONE Rx#:[id number] Other: Weight 72 kg PHYSICAL EXAMINATION: HEENT: Head is atraumatic, normocephalic. Pupils equal, round. Neck is supple. There is elevated jugular venous pressure. HEART EXAMINATION: Heart S1 and S2 systolic ejection murmur is heard. CHEST EXAMINATION: Lungs reveal crackles bilaterally with diminished air entry to the bases. ABDOMEN: Soft, nontender. Bowel sounds are heard. No organomegaly noted. EXTREMITIES: 2+ peripheral pulses with trace evidence of peripheral edema and no calf tenderness noted. NEUROLOGIC patient is awake, alert and oriented -3. . Results 07/22/16 06:23 07/22/16 06:23 Cardiac Enzymes 07/20/16 Range/Units 22:48 Troponin I 0.101 H* (0.000-0.034) ng/mL CBC 07/21/16 Range/Units 06:18 WBC 6.1 (3.8-10.6) k/uL RBC 3.37 L (3.80-5.40) m/uL Hgb 10.6 L (11.4-16.0) gm/dL Hct 32.0 L (34.0-46.0) % Plt Count 222 (150-450) k/uL Comprehensive Metabolic Panel 07/21/16 Range/Units 06:18 Sodium 148 H (137-145) mmol/L Potassium 3.2 L (3.5-5.1) mmol/L Chloride 104 (98-107) mmol/L Carbon Dioxide 28 (22-30) mmol/L BUN 22 H (7-17) mg/dL Creatinine 0.56 (0.52-1.04) mg/dL Glucose 143 H (74-99) mg/dL Calcium 8.3 L (8.4-10.2) mg/dL Current Medications Generic Name Dose Route Start Last Admin Trade Name Freq PRN Reason Stop Dose Admin Acetaminophen 650 mg 07/20/16 20:58 Tylenol Tab PO Q4H PRN Pain Acetaminophen/Hydrocodone Bitart 1 each 07/20/16 20:58 [place] 5-325 PO BID PRN Pain Albuterol/Ipratropium 3 ml 07/21/16 08:00 Duoneb 0.5 Mg-3 Mg/3 Ml Soln INHALATION RT-QID [facility] Amiodarone HCl 200 mg 07/21/16 09:00 Cordarone PO DAILY [facility] Aspirin 81 mg 07/21/16 09:00 Aspirin PO DAILY [facility] Atorvastatin Calcium 80 mg 07/20/16 21:15 07/20/16 21:51 Lipitor PO Not Given HS [facility] Bisacodyl 10 mg 07/20/16 20:58 Dulcolax RECTAL DAILY PRN Constipation Carvedilol 25 mg 07/21/16 07:30 07/21/16 06:29 Coreg PO 25 mg W/BRKFST [facility] Administration Furosemide 40 mg 07/21/16 09:00 Lasix PO DAILY [facility] Potassium Chloride 10 meq/ 105.5 mls @ 100 mls/hr 07/21/16 09:00 Lidocaine HCl 10 mg/ Sodium IV 07/21/16 10:59 Chloride Q1HR [facility] Insulin Human Lispro 0 unit 07/20/16 21:00 07/21/16 06:29 Humalog SQ 1 unit ACHS [facility] Administration Protocol Losartan Potassium 25 mg 07/21/16 09:00 Cozaar PO DAILY [facility] Metformin HCl 500 mg 07/20/16 21:15 07/20/16 21:51 Glucophage PO Not Given BID [facility] Miscellaneous Information 1 each 07/20/16 21:01 Potassium Per Protocol MISCELLANE DAILY PRN Per Protocol Protocol Miscellaneous Information 1 each 07/20/16 21:34 Potassium Per Protocol MISCELLANE DAILY PRN Per Protocol Protocol Miscellaneous Information 1 each 07/21/16 08:13 Potassium Per Protocol MISCELLANE DAILY PRN Per Protocol Protocol Nitroglycerin 0.4 mg 07/20/16 20:58 Nitrostat SUBLINGUAL Q5M PRN Chest Pain Nystatin 400,000 unit 07/20/16 22:00 07/20/16 21:51 Mycostatin Oral Susp PO Not Given QID [facility] Ondansetron HCl 4 mg 07/20/16 18:48 07/20/16 21:55 Zofran IVP 4 mg Q6HR PRN Administration Nausea And Vomiting Pantoprazole Sodium 40 mg 07/21/16 07:30 07/21/16 06:29 Protonix PO 40 mg AC-BRKFST [facility] Administration Potassium Chloride 10 meq 07/21/16 09:00 K-Dur 10 PO DAILY [facility] Senna/Docusate Sodium 1 each 07/20/16 20:58 Senokot-S PO HS PRN Constipation Intake and Output 07/20/16 07/21/16 07/21/16 22:59 06:59 14:59 Intake Total 800 1000 Balance 800 1000 Intake: IV 800 1000 Potassium Chloride 10 meq 800 200 Lidocaine 2% Inj 10 mg In Sodium Chloride 0.9% 100 ml @ 100 mls/hr IV Q1HR [facility] Rx#:[id number] Sodium Chloride 0.9% 1, 800 000 ml @ 100 mls/hr IV . Q10H ONE Rx#:[id number] Other: Weight 72 kg 07/21/16 06:18 07/21/16 06:18 EKG Interpretations (text) EKG shows a normal sinus rhythm with inferior lateral ST-T wave changes. Assessment and Plan Plan: Assessment and plan #1 weakness with symptoms of nausea and vomiting. #2 shortness of breath, we will obtain a chest x-ray and BNP level. #3 abnormal troponins, not consistent with acute coronary syndrome, could be secondary to oxygen supply and demand mismatch. Patient denies chest pain. #4 history of coronary artery disease with prior bypass surgery in May of last year #5 diabetes #6 hypertension #7 hyperlipidemia #8 acute on chronic renal insufficiency #9 paroxysmal atrial fibrillation 10 hypokalemia Plan We will obtain a repeat echocardiogram with Doppler study. We will obtain a chest x-ray, BNP level. Continue aspirin 81 mg daily, amiodarone, Coreg, Lasix , losartan, and replace potassium. Further recommendations to follow. DNP note has been reviewed, I agree with a documented findings and plan of care. Patient was seen and examined.
[2016-07-21] MEDS: NYSTATIN 100,000 UNIT/ML SUSP 500,000 UNIT/5 ML CUP PO SCH ×4 (08:56→20:44)
[2016-07-21] MEDS: metFORMIN 500 MG TAB PO SCH (08:56)
[2016-07-21] MEDS: AMIODARONE 200 MG TAB PO SCH (08:58)
[2016-07-21] MEDS: LOSARTAN 25 MG TAB PO SCH (08:58)
[2016-07-21] MEDS: ASPIRIN 81 MG CHEW PO SCH (08:59)
[2016-07-21] MEDS ORDERED: FUROSEMIDE 40 MG TAB PO SCH (09:00)
--- NOTE | 2016-07-21 09:29 | XR ---
EXAMINATION TYPE: XR chest 2V DATE OF EXAM: 07/21/2016 9:18 AM COMPARISON: Prior chest x-ray 10 July 2016 HISTORY: Shortness of breath, status post median sternotomy TECHNIQUE: Frontal and lateral views of the chest are obtained. FINDINGS: Prominent lung volumes may be indicative of underlying COPD. No evident pneumothorax or pl eural effusion. There are overlying cardiac leads. Heart is stable and enlarged. Luminary vascularity and romi are not significantly changed. Surgical clips present in the right lower chest. Coronary ar sofia calcifications are present. There are mitral annular calcifications. Biapical pleural thickening is noted. IMPRESSION: No acute cardiopulmonary disease is evident.
[2016-07-21] MEDS: POTASSIUM CHLORIDE ER 10 MEQ TAB.ER.PRT PO SCH (11:02)
[2016-07-21] MEDS: ONDANSETRON 4 MG/2 ML VIAL IVP PRN (11:42)
--- NOTE | 2016-07-21 11:58 | ECHOF ---
Referral Reason:chf MEASUREMENTS -------- HEIGHT: 165.1 cm WEIGHT: 71.7 kg BP: 157/71 RVIDd: 2.7 cm (< 3.3) IVSd: 1.1 cm (0.6 - 1.1) LVIDd: 3.5 cm (3.9 - 5.3) LVPWd: 0.8 cm (0.6 - 1.1) IVSs: 1.4 cm LVIDs: 2.3 cm LVPWs: 1.5 cm LA Diam: 3.3 cm (2.7 - 3.8) LAESV Index (A-L): 48.76 ml/m Ao Diam: 2.4 cm (2.0 - 3.7) AV Cusp: 1.2 cm (1.5 - 2.6) MV EXCURSION: 12.408 mm (> 18.000) MV EF SLOPE: 23 mm/s (70 - 150) EPSS: 0.8 cm MV E Librado: 1.17 m/s MV DecT: 452 ms MV A [place]: 1.20 m/s MV E/A Ratio: 0.97 AV maxP.49 mmHg AV meanP.72 mmHg RAP: 5.00 mmHg RVSP: 33.18 mmHg FINDINGS -------- Sinus rhythm. This was a technically adequate study. The left ventricular size is normal. Left ventricular wall thickness is normal. Overall left ventricular systolic function is normal with, an EF between 60 - 65 %. The right ventricle is normal in size. LA is severely dilated >40 ml/m2 The right atrium is normal in size. Aortic valve is trileaflet and is moderately thickened. There is mild aortic stenosis present. Peak/mean gradient across the Aortic Valve is 22.49mmHg / 12.72mmHg. The mitral valve leaflets are moderately thickened. Severe mitral annular calcification present. Mild mitral regurgitation is present. Mild tricuspid regurgitation present. Right ventricular systolic pressure is normal at < 35 mmHg. The pulmonic valve was not well visualized. The aortic root size is normal. Normal inferior vena cava with normal inspiratory collapse consistent with estimated right atrial pressure of 5 mmHg. Echo free space may represent effusion or a pericardial fat pad. CONCLUSIONS -------- 1. Sinus rhythm. 2. Peak/mean gradient across the Aortic Valve is 22.49mmHg / 12.72mmHg. 3. The mitral valve leaflets are moderately thickened. 4. Severe mitral annular calcification present. 5. Mild mitral regurgitation is present. 6. Mild tricuspid regurgitation present. 7. Right ventricular systolic pressure is normal at < 35 mmHg. 8. The pulmonic valve was not well visualized. 9. The aortic root size is normal. 10. Normal inferior vena cava with normal inspiratory collapse consistent with estimated right atrial pressure of 5 mmHg. 11. Echo free space may represent effusion or a pericardial fat pad. 12. This was a technically adequate study. 13. The left ventricular size is normal. 14. Left ventricular wall thickness is normal. 15. Overall left ventricular systolic function is normal with, an EF between 60 - 65 %. 16. The right ventricle is normal in size. 17. LA is severely dilated >40 ml/m2 18. Aortic valve is trileaflet and is moderately thickened. 19. There is mild aortic stenosis present. MACHINIST WOOD: Bienvenido Williamson RDCS
[2016-07-21 12:03] LABS: Glucose,Whole Blood 157 mg/dL (75-99)
--- NOTE | 2016-07-21 14:43 | P.HPIM ---
History of Present Illness H&P Date: 07/21/16 71-year-old female well-known to our service was admitted multiple times in the hospital with dehydration. Patient was admitted at least 2-3 times at this hospital and twice at [facility] for similar complaints. Patient underwent multiple studies in regards to dysphagia which is her underlying reason for dehydration. Patient has had no penetration noted on modified barium swallows. The speech therapist shira on the prior admission and Dr. 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 Patient was evaluated by a psychiatrist at that time as well. Patient was started on SSRI was informed that the diagnosis and speech therapist discussed intervention. Patient however is readmitted to the hospital with hyponatremia which appears to be hypovolemic and states that she is having multiple episodes of emesis upon discharge. Patient will also noted to have a troponin leak on admission however patient had a CABG within the last 10 weeks. Patient apparently also noticed that she has some difficulty in breathing and hence went to [facility]. Patient was thereafter transferred to our hospital due to acute kidney injury and episodes of nausea and vomiting. Today patient states that she is able to eat better denies having any chest pressure, difficulty breathing, abdominal pain, nausea, urinary urgency or frequency. Review of Systems All systems: negative (Noted in HPI) Past Medical History Past Medical History: Atrial Fibrillation, Coronary Artery Disease (CAD), Cancer , Diabetes Mellitus, Hyperlipidemia, Hypertension, Myocardial Infarction ([place]) Additional Past Medical History / Comment(s): 07/20/16 c/o weakness n/v. CAD and previous NSTEMI and CABG, paroxysmal AFIB, Breast CA, Last Myocardial Infarction Date:: date unknown History of Any Multi-Drug Resistant Organisms: None Reported Past Surgical History: Breast Surgery, Cholecystectomy, Coronary Bypass/CABG, Heart Catheterization With Stent, Tonsillectomy Additional Past Surgical History / Comment(s): Rt Mastectomy with radiation treatment, CABG , barium swallow,egd Past Anesthesia/Blood Transfusion Reactions: No Reported Reaction Date of Last Stent Placement:: dated unknown Past Psychological History: No Psychological Hx Reported Smoking Status: Former smoker Past Alcohol Use History: Rare Additional Past Alcohol Use History / Comment(s): started smoking in her teens, quit smoking 2013 Past Drug Use History: None Reported - Past Family History Brother(s) Family Medical History: Chest Pain / Angina, Myocardial Infarction ([place]) Additional Family Medical History / Comment(s): at age 32 Son(s) Family Medical History: Coronary Artery Disease (CAD), Myocardial Infarction ([place] ) Additional Family Medical History / Comment(s): at age 38 Mother Family Medical History: Coronary Artery Disease (CAD), Myocardial Infarction ([place] ) Father Family Medical History: No Reported History Medications and Allergies Home Medications Medication Instructions Recorded Confirmed Type Atorvastatin [Lipitor] 80 mg PO HS 06/06/16 07/20/16 History Furosemide [Lasix] 40 mg PO DAILY 06/06/16 07/20/16 History Acetaminophen Tab [Tylenol Tab] 650 mg PO Q4H PRN 07/08/16 07/20/16 History Carvedilol [Coreg] 25 mg PO DAILY 07/08/16 07/20/16 History HYDROcodone/APAP 5-325MG [[place] 1 tab PO BID PRN 07/08/16 07/20/16 History 5-325] Nitroglycerin Sl Tabs [Nitrostat] 0.4 mg SUBLINGUAL Q5M PRN 07/08/16 07/20/16 History Sennosides-Docusate Sodium 1 tab PO HS PRN 07/08/16 07/20/16 History [Senokot-S] Amiodarone [Cordarone] 200 mg PO DAILY 07/20/16 07/20/16 History Nystatin 100,000 Unit/ml Susp 4 ml PO QID 07/20/16 07/20/16 History [Mycostatin Oral Susp] Ondansetron [Zofran ODT] 4 mg PO Q12H PRN 07/20/16 07/20/16 History Allergies Allergy/AdvReac Type Severity Reaction Status Date / Time methylene blue Allergy Unknown Verified 07/20/16 16:30 Physical Exam Vitals: Vital Signs Temp Pulse Pulse Resp BP BP Pulse Ox 07/21/16 12:00 98.0 F 63 16 152/78 100 07/21/16 11:56 60 07/21/16 11:44 60 07/21/16 08:44 64 07/21/16 08:35 72 07/21/16 08:00 98.6 F 73 16 157/71 97 07/21/16 03:08 98.3 F 78 18 166/83 99 07/21/16 00:00 99.5 F 79 18 166/80 98 07/20/16 20:00 97.1 F L 80 16 166/87 97 07/20/16 19:12 77 16 186/83 96 Intake and Output 07/20/16 07/21/16 07/21/16 22:59 06:59 14:59 Intake Total 800 1000 1000 Output Total 200 Balance 800 1000 800 Intake: IV 800 1000 700 Potassium Chloride 10 meq 800 200 200 Lidocaine 2% Inj 10 mg In Sodium Chloride 0.9% 100 ml @ 100 mls/hr IV Q1HR TIERA Rx#:[id number] Sodium Chloride 0.9% 1, 800 500 000 ml @ 100 mls/hr IV . Q10H ONE Rx#:[id number] Oral 300 Output: Urine 200 Other: Voiding Method Bedside Commode Weight 72 kg 72 kg Patient Weight 07/22/16 06:59 Weight 72 kg Gen. appearance alert oriented 3 no distress Lungs good air entry clear to auscultation Heart S1-S2 heard appears regular rhythm a systolic murmurs appreciated Abdomen soft nontender organomegaly lower extremities no edema is noted at this time neurologically no focal motor or sensory deficits noted. Results CBC & Chem 7: 07/21/16 06:18 07/21/16 06:18 Labs: Abnormal Lab Results - Last 24 Hours (Table) 07/20/16 07/20/16 07/21/16 Range/Units 20:36 22:48 05:58 RBC (3.80-5.40) m/uL Hgb (11.4-16.0) gm/dL Hct (34.0-46.0) % Lymphocytes # (1.0-4.8) k/uL Sodium (137-145) mmol/L Potassium (3.5-5.1) mmol/L BUN (7-17) mg/dL Glucose (74-99) mg/dL POC Glucose (mg/dL) 151 H 145 H (75-99) mg/dL Calcium (8.4-10.2) mg/dL Troponin I 0.101 H* (0.000-0.034) ng/mL 07/21/16 07/21/16 07/21/16 Range/Units 06:18 06:18 11:55 RBC 3.37 L (3.80-5.40) m/uL Hgb 10.6 L (11.4-16.0) gm/dL Hct 32.0 L (34.0-46.0) % Lymphocytes # 0.5 L (1.0-4.8) k/uL Sodium 148 H (137-145) mmol/L Potassium 3.2 L (3.5-5.1) mmol/L BUN 22 H (7-17) mg/dL Glucose 143 H (74-99) mg/dL POC Glucose (mg/dL) 157 H (75-99) mg/dL Calcium 8.3 L (8.4-10.2) mg/dL Troponin I (0.000-0.034) ng/mL Thrombosis Risk Factor Assmnt - Choose All That Apply Any of the Below Risk Factors Present?: Yes Each Factor Represents 1 point: Obesity (BMI >25), Swollen legs (current) Other Risk Factors: Yes Each Risk Factor Represents 2 Points: Age 61-74 years, Malignancy Other congenital or acquired thrombophilia - If yes, enter type in comment: No Thrombosis Risk Factor Assessment Total Risk Factor Score: 6 Thrombosis Risk Factor Assessment Level: High Risk Assessment and Plan Plan: #1 intractable nausea vomiting secondary to psychogenic dysphagia. Apparently this is sometimes seen postcardiac surgery This diagnosis was made after multiple barium swallows. Multiple evaluations by speech therapy at the [facility] and [facility]. #2 indeterminant troponin leak #3 history of CAD status post CABG #4 diabetes mellitus type 2 #5 history of hypertension #6 dyslipidemia #7 acute on CK D stage III #8 paroxysmal atrial fibrillation #9 hypokalemia para graft #10 hypernatremia likely secondary to dehydration Plan Hold diuretics and metformin at this time. Discussed with the patient in regards to multiple admissions with similar problems. Patient may benefit from undergoing a PEG tube placement at least for the next 6 months once the above- described condition is resolved, at that time this continuation of the PEG tube would be ideal. A dietary consult will be obtained in order to educate the patient as well. Consult GI for placement of PEG tube. Continue ongoing care. A troponin leak is unlikely cardiac in etiology. Repeat labs name.
[2016-07-21 16:47] LABS: Glucose,Whole Blood 211 mg/dL (75-99)
[2016-07-21] MEDS: ATORVASTATIN 80 MG TAB PO SCH (20:43)
[2016-07-21 20:58] LABS: Glucose,Whole Blood 144 mg/dL (75-99)
[2016-07-21] MEDS ORDERED: FUROSEMIDE 10 MG/ML 4 ML VIAL IV SCH (21:00)
[2016-07-22] MEDS: ONDANSETRON 4 MG/2 ML VIAL IVP PRN ×3 (06:41→19:54)
[2016-07-22 06:45] LABS: Glucose,Whole Blood 153 mg/dL (75-99)
[2016-07-22] MEDS: INSULIN LISPRO (humaLOG) 300 UNIT/3 ML VIAL SQ SCH ×4 (06:59→21:24)
[2016-07-22 07:02] LABS: Basophils % (A) 0 %; CH 31.1; CHCM 33.3; Eosinophils # (A) 0.1 k/uL (0-0.7); Eosinophils % (A) 1 %; HCT 31.5 % (34.0-46.0); HDW 3.31; HGB 10.3 gm/dL (11.4-16.0); Luc # (Auto) 0.09; Luc % (Auto) 2; Lymphocytes # (A) 0.5 k/uL (1.0-4.8); Lymphocytes % (A) 9 %; MCH 30.5 pg (25.0-35.0); MCHC 32.6 g/dL (31.0-37.0); MCV 93.6 fL (80.0-100.0); Mean Platelet Volume 8.4; Monocytes # (A) 0.4 k/uL (0-1.0); Monocytes % (A) 6 %; Neutrophils # (A) 4.9 k/uL (1.3-7.7); Neutrophils % (A) 83 %; RBC 3.37 m/uL (3.80-5.40); RDW 14.6 % (11.5-15.5); WBC 5.9 k/uL (3.8-10.6); WBC (Perox) 5.75
[2016-07-22 07:22] LABS: ALT 35 U/L (9-52); AST 20 U/L (14-36); Alkaline Phosphatase 77 U/L (38-126); Anion Gap 12 mmol/L; Blood Urea Nitrogen 16 mg/dL (7-17); Calcium 7.8 mg/dL (8.4-10.2); Carbon Dioxide 30 mmol/L (22-30); Chloride 102 mmol/L (98-107); Glucose 147 mg/dL (74-99); Non-African American GFR(MDRD) >60 (>60 ml/min/1.73 sqM); Sodium 144 mmol/L (137-145); Total Bilirubin 0.9 mg/dL (0.2-1.3); Total Protein 5.4 g/dL (6.3-8.2)
[2016-07-22 07:30] LABS: Potassium 2.6 mmol/L (3.5-5.1)
[2016-07-22] MEDS: IPRATROPIUM-ALBUTEROL 3 ML NEB INHALATION SCH ×4 (08:05→20:03)
[2016-07-22] MEDS: CARVEDILOL 12.5 MG TAB PO SCH (08:10)
[2016-07-22] MEDS: NYSTATIN 100,000 UNIT/ML SUSP 500,000 UNIT/5 ML CUP PO SCH ×4 (08:11→21:51)
[2016-07-22] MEDS: AMIODARONE 200 MG TAB PO SCH (08:11)
[2016-07-22] MEDS: LOSARTAN 25 MG TAB PO SCH (08:11)
[2016-07-22] MEDS: ASPIRIN 81 MG CHEW PO SCH (08:11)
[2016-07-22] MEDS: PANTOPRAZOLE 40 MG TABLET PO SCH (08:11)
[2016-07-22] MEDS: POTASSIUM CHLORIDE ER 10 MEQ TAB.ER.PRT PO SCH (08:12)
[2016-07-22] MEDS: POTASSIUM CHLORIDE 10 MEQ, LIDOCAINE 2% INJ 10 MG in SODIUM CHLORIDE 0.9% 100 ML IV SCH ×3 (08:27→11:12)
[2016-07-22 11:50] LABS: Glucose,Whole Blood 157 mg/dL (75-99)
--- NOTE | 2016-07-22 14:36 | P.CONS ---
History of Present Illness - Reason for Consult Consult date: 07/22/16 dysphagia peg tube evaluaiton Requesting physician: Tae Cordero - History of Present Illness 71-year-old female patient of Dr. Sandoval with a past history of breast carcinoma, [place], hypertension, A. fib, CABG May 2016, and diabetes mellitus. Transferred from [facility] [place] with nausea vomiting dehydration weakness for 4 days. Consultation requested for dysphagia. Since open-heart surgery in May she has lost 20 kg of weight. She states food substances "get stuck" in her midesophagus without odynophagia. At times this causes increased nausea vomiting. No history of EGD, denies fever, chills, hematemesis, hematochezia, or melena. There was concern for possible underlying psychogenic dysphagia. Upon review of medical record she was seen by psychiatry earlier this month with recommendations to not start antidepressants. Her overall affect is flat. She is tolerating small amounts of liquids but not enough to sustain adequate nutritional maintenance. Modified barium swallow and speech evaluation reported no valorie penetration or aspiration of food substances. Review of Systems Constitutional: Denies fever, chills, sweats, weight gain, or loss. HEENT: Negative for migraines, blurred vision or loss, earaches, drainage, tinnitus, oral mucosal lesions, dysphagia, or odynophagia. CARDIAC: A. fib. CAD status post CABG May 2016. Hyperlipidemia. Hypertension. IN. RESPIRATORY: Negative for shortness of breath, hemoptysis, cough, or sputum production. GI: See HPI for pertinent findings. : Negative for hematuria, urgency, frequency, polyuria, or dysuria. GYNc: Denies possibility of . Negative vaginal discharge. MUSCULOSKELETAL: Negative for muscle aches, swelling, arthritis, and arthralgias. NEUROLOGIC: Negative for stroke or TIA. ENDOCRINE: Negative for thyroid problems. SKIN: Negative for rash or itching. PSYCHIATRIC: Negative history for depression and anxiety Hematology: History of breast cancer. All systems: negative (See HPI) Past Medical History Past Medical History: Atrial Fibrillation, Coronary Artery Disease (CAD), Cancer , Diabetes Mellitus, Hyperlipidemia, Hypertension, Myocardial Infarction ([place]) Additional Past Medical History / Comment(s): 07/20/16 c/o weakness n/v. CAD and previous NSTEMI and CABG, paroxysmal AFIB, Breast CA, Last Myocardial Infarction Date:: date unknown History of Any Multi-Drug Resistant Organisms: None Reported Past Surgical History: Breast Surgery, Cholecystectomy, Coronary Bypass/CABG, Heart Catheterization With Stent, Tonsillectomy Additional Past Surgical History / Comment(s): Rt Mastectomy with radiation treatment, CABG , barium swallow,egd Past Anesthesia/Blood Transfusion Reactions: No Reported Reaction Date of Last Stent Placement:: dated unknown Past Psychological History: No Psychological Hx Reported Smoking Status: Former smoker Past Alcohol Use History: Rare Additional Past Alcohol Use History / Comment(s): started smoking in her teens, quit smoking 2013 Past Drug Use History: None Reported - Past Family History Brother(s) Family Medical History: Chest Pain / Angina, Myocardial Infarction ([place]) Additional Family Medical History / Comment(s): at age 32 Son(s) Family Medical History: Coronary Artery Disease (CAD), Myocardial Infarction ([place] ) Additional Family Medical History / Comment(s): at age 38 Mother Family Medical History: Coronary Artery Disease (CAD), Myocardial Infarction ([place] ) Father Family Medical History: No Reported History Medications and Allergies Home Medications Medication Instructions Recorded Confirmed Type Atorvastatin [Lipitor] 80 mg PO HS 06/06/16 07/20/16 History Furosemide [Lasix] 40 mg PO DAILY 06/06/16 07/20/16 History Acetaminophen Tab [Tylenol Tab] 650 mg PO Q4H PRN 07/08/16 07/20/16 History Carvedilol [Coreg] 25 mg PO DAILY 07/08/16 07/20/16 History HYDROcodone/APAP 5-325MG [[place] 1 tab PO BID PRN 07/08/16 07/20/16 History 5-325] Nitroglycerin Sl Tabs [Nitrostat] 0.4 mg SUBLINGUAL Q5M PRN 07/08/16 07/20/16 History Sennosides-Docusate Sodium 1 tab PO HS PRN 07/08/16 07/20/16 History [Senokot-S] Amiodarone [Cordarone] 200 mg PO DAILY 07/20/16 07/20/16 History Nystatin 100,000 Unit/ml Susp 4 ml PO QID 07/20/16 07/20/16 History [Mycostatin Oral Susp] Ondansetron [Zofran ODT] 4 mg PO Q12H PRN 07/20/16 07/20/16 History Allergies Allergy/AdvReac Type Severity Reaction Status Date / Time methylene blue Allergy Unknown Verified 07/20/16 16:30 Physical Exam Vitals: Vital Signs Temp Pulse Resp BP Pulse Ox 07/22/16 11:14 60 17 158/70 97 07/22/16 08:00 97.2 F L 68 17 168/70 98 07/22/16 04:00 97.8 F 66 16 183/81 96 07/22/16 00:00 64 16 171/63 98 07/21/16 20:00 97.2 F L 64 18 169/77 97 07/21/16 15:02 98.6 F 68 16 126/65 98 Intake and Output 07/21/16 07/22/16 07/22/16 22:59 06:59 14:59 Intake Total 240 0 Output Total 800 700 Balance -560 -700 0 Intake: Oral 240 0 Output: Urine 800 700 Other: Voiding Method Bedpan Bedpan Bedpan # Voids 1 0 # Bowel Movements 1 Weight 74 kg General appearance: The patient is alert, oriented, in no acute distress. HET: Head is normocephalic and atraumatic. Pupils are equal and reactive. Oropharynx is clear without lesions. Neck: Supple without lymphadenopathy. Trachea midline. Heart: S1 S2. Regular rate and rhythm. Lungs: No crackles or wheezes are heard. Abdomen: Soft, nontender, nondistended with bowel sounds. No peritoneal signs. No palpable organomegaly or masses. Extremities: Normal skin color and turgor. No cyanosis, rash, ulceration, clubbing, or edema. Radial and pedal pulses are 2/4 bilaterally. Neurological: No focal deficits. Strength and sensation are grossly intact. Results CBC & Chem 7: 07/22/16 06:23 07/22/16 06:23 Labs: Abnormal Lab Results - Last 24 Hours (Table) 07/21/16 07/21/16 07/22/16 Range/Units 16:42 20:56 06:23 RBC 3.37 L (3.80-5.40) m/uL Hgb 10.3 L (11.4-16.0) gm/dL Hct 31.5 L (34.0-46.0) % Lymphocytes # 0.5 L (1.0-4.8) k/uL Potassium (3.5-5.1) mmol/L Glucose (74-99) mg/dL POC Glucose (mg/dL) 211 H 144 H (75-99) mg/dL Calcium (8.4-10.2) mg/dL Total Protein (6.3-8.2) g/dL Albumin (3.5-5.0) g/dL 07/22/16 07/22/16 07/22/16 Range/Units 06:23 06:43 11:45 RBC (3.80-5.40) m/uL Hgb (11.4-16.0) gm/dL Hct (34.0-46.0) % Lymphocytes # (1.0-4.8) k/uL Potassium 2.6 L* (3.5-5.1) mmol/L Glucose 147 H (74-99) mg/dL POC Glucose (mg/dL) 153 H 157 H (75-99) mg/dL Calcium 7.8 L (8.4-10.2) mg/dL Total Protein 5.4 L (6.3-8.2) g/dL Albumin 3.1 L (3.5-5.0) g/dL Assessment and Plan (1) Dysphagia Narrative/Plan: 71-year-old female with persistent dysphagia 2 months duration with mid esophageal pressure after ingestion of foods without odynophagia status post CABG May 2016 with 20 kg weight loss. Rule out mechanical etiology of dysphagia possible stricture disease. Cannot exclude a component of underlying psychogenic dysphagia with flat affect. Status: Acute Plan: 1. Prealbumin. 2. Recommend dietary consultation and calorie count. 3. Will proceed with barium esophagram based on results we'll decide if EGD is necessary. PEG tube placement not recommended at this time; contingent on clinical course. Would advise consultation with psychiatry to evaluate mood affect and EGD evaluation before proceeding with PEG tube placement. We'll follow closely with you. Thank you for this kind referral and the opportunity to participate in the care of your patient. This consultation was discussed with Dr. Dhaliwal. The impression and plan of care have been directed as dictated.
--- NOTE | 2016-07-22 15:19 | P.PN ---
Subjective Principal diagnosis: Weakness This is a 71-year-old female who was transferred here from [facility]. Patient underwent coronary artery bypass surgery in May of last year at which time she presented with a non-ST elevation myocardial infarction. Patient received a HALL to the LAD, saphenous vein graft to the diagonal branch, saphenous vein graft to the PDA with excursion of the left atrial appendage. History of hypertension, hyperlipidemia, paroxysmal atrial fibrillation, acute on chronic renal insufficiency, according to the patient, she's been extremely weak over the past few days, she also has had several episodes of nausea and vomiting. According to the patient she has noticed a worsening in her shortness of breath over the past 3-4 days as well. For these reasons she went to [facility], and was transferred here. Patient denies having any chest pain. Initial troponin on [place] 0.1. EKG on arrival here showed a normal sinus rhythm with inferior lateral ST-T wave changes. These changes were also noted on patient's prior EKGs. Blood pressure on arrival here 168/76, heart rate in the 70s, 98% on room air. Laboratory data was reviewed, hemoglobin 10.6, potassium 3.2, BUN 22, creatinine 0.5. Troponin 0.10, 0.10, at the time of my examination this morning , patient states she is feeling overall better today. Appetite improving. Patient will be scheduled for a barium esophagram and based on that GI we'll decide if an EGD as necessary. Objective - Vital Signs Vital signs: Vital Signs Temp 97.2 F L 07/22/16 08:00 Pulse 60 07/22/16 11:14 Resp 17 07/22/16 11:14 BP 158/70 07/22/16 11:14 Pulse Ox 97 07/22/16 11:14 - Exam PHYSICAL EXAMINATION: HEENT: Head is atraumatic, normocephalic. Pupils equal, round. Neck is supple. There is elevated jugular venous pressure. HEART EXAMINATION: Heart S1 and S2 systolic ejection murmur is heard. CHEST EXAMINATION: Lungs reveal crackles bilaterally with diminished air entry to the bases. ABDOMEN: Soft, nontender. Bowel sounds are heard. No organomegaly noted. EXTREMITIES: 2+ peripheral pulses with trace evidence of peripheral edema and no calf tenderness noted. NEUROLOGIC patient is awake, alert and oriented -3. . - Labs CBC & Chem 7: 07/22/16 06:23 07/22/16 06:23 Assessment and Plan Plan: Assessment and plan #1 weakness with symptoms of nausea and vomiting with dysphasia and esophageal pressure after eating. #2 shortness of breath, we will obtain a chest x-ray and BNP level. #3 abnormal troponins, not consistent with acute coronary syndrome, could be secondary to oxygen supply and demand mismatch. Patient denies chest pain. #4 history of coronary artery disease with prior bypass surgery in May of last year #5 diabetes #6 hypertension #7 hyperlipidemia #8 acute on chronic renal insufficiency #9 paroxysmal atrial fibrillation 10 hypokalemia Plan Echocardiogram with Doppler study was performed which revealed an ejection fraction of 60-65%. From cardiology's perspective, patient is remaining stable. GI workup in progress. DNP note has been reviewed, I agree with a documented findings and plan of care. Patient was seen and examined.
[2016-07-22] MEDS: HYDROcodone/APAP 5-325MG 1 EACH TAB PO PRN (16:05)
[2016-07-22 16:58] LABS: Glucose,Whole Blood 145 mg/dL (75-99)
[2016-07-22 21:02] LABS: Glucose,Whole Blood 134 mg/dL (75-99)
[2016-07-22] MEDS: amLODIPine 5 MG TAB PO SCH (21:50)
[2016-07-22] MEDS: ATORVASTATIN 80 MG TAB PO SCH (21:51)
[2016-07-23] MEDS: hydrALAZINE HCL 20 MG/ML 1 ML VIAL IVP PRN ×3 (00:02→15:05)
[2016-07-23] MEDS: HEPARIN SODIUM,PORCINE 5,000 UNIT/ML 1 ML VIAL SQ SCH ×3 (01:37→15:01)
[2016-07-23 05:58] LABS: Glucose,Whole Blood 127 mg/dL (75-99)
[2016-07-23] MEDS: INSULIN LISPRO (humaLOG) 300 UNIT/3 ML VIAL SQ SCH ×4 (06:11→21:46)
[2016-07-23] MEDS: NYSTATIN 100,000 UNIT/ML SUSP 500,000 UNIT/5 ML CUP PO SCH ×4 (07:08→21:46)
[2016-07-23] MEDS: PANTOPRAZOLE 40 MG TABLET PO SCH (07:08)
[2016-07-23] MEDS: POTASSIUM CHLORIDE 10 MEQ, LIDOCAINE 2% INJ 10 MG in SODIUM CHLORIDE 0.9% 100 ML IV SCH ×5 (09:31→21:34)
[2016-07-23] MEDS: IPRATROPIUM-ALBUTEROL 3 ML NEB INHALATION SCH ×4 (09:31→20:32)
[2016-07-23] MEDS: ONDANSETRON 4 MG/2 ML VIAL IVP PRN (09:34)
--- NOTE | 2016-07-23 11:04 | PN ---
DATE OF SERVICE: 07/22/2016 INTERVAL HISTORY: Ms. Hector is a 71 -year-old female with known history of atrial fibrillation, on anticoagulation and coronary artery disease with coronary artery bypass in May 2016. Was admitted 2 to 3 times since then with similar complaints of dehydration and unable to tolerate p.o. diet. Patient suspected to have psychogenic dysphagia and patient was previously seen by psychiatry. Currently patient was admitted to the hospital with similar complaints. Gastroenterology has been consulted and recommended barium esophagogram, ( ) EGD. Otherwise psychiatry has been consulted as well due to flat affect and constant dysphagia. Otherwise, the patient currently denied any complaints of chest pain or shortness of breath, no nausea, vomiting, abdominal pain. The patient initially went to [facility] and transferred to [facility] due to acute kidney injury and episodes of nausea and vomiting. Complete review of systems could not be obtained from the patient. Otherwise, denied any chest pain or short of breath. No abdominal pain. Current medications include: 1. Tylenol. 2. [place] 5. 3. DuoNeb. 4. Cordarone. 5. Norvasc. 6. Aspirin. 7. Lipitor. 8. Dulcolax. 9. Coreg. 10. Apresoline. 11. Humalog. 12. Cozaar. 13. Nitrostat. 14. Mycostatin oral suspension. 15. Zofran. 16. Protonix. 17. K-Dur. 18. Senna. 19. Colace. PHYSICAL EXAMINATION: 71 -year-old female lying in bed, awake, alert and oriented, x3. Appears to be in no apparent distress. VITALS: Blood pressure is 166/75, pulse 65, respirations 17, temperature afebrile, pulse ox 95% on room air. HEENT: Atraumatic, normocephalic. Neck is supple. No JVD. CVS: S1, S2 heard. No murmurs, no gallop. LUNGS: Bilateral air entry is present. No wheezing. No crackles. Nonlabored breathing. ABDOMEN: Soft, nontender. Bowel sounds are present. [employer]: Awake, alert, oriented x3. No focal deficits noted. EXTREMITIES: No edema. Pulse palpable bilaterally. No clubbing or cyanosis. PSYCHIATRIC: Cooperative, could not be assessed, the patient has flat affect. LABORATORY DATA: WBC 5.9, hemoglobin 10.3, platelets 192. Sodium 144, potassium 2.6, chloride 102, bicarb is 30. BUN 16, creatinine 0.57. IMPRESSION: 1. Dysphagia suspected psychogenic drug dysphagia. Otherwise, the patient will be getting barium esophagogram as per GI evaluation and possible EGD after that depending on the results. Psychiatry has been reconsulted as well and her speech and swallow elevation, otherwise ( ) consulted is also following. 2. Intermediate troponin leak. 3. History of coronary artery disease, status post coronary artery bypass graft in May 2016. 4. Type 2 diabetes mellitus. 5. Hypertension. 6. Dyslipidemia. 7. Acute on chronic kidney disease stage III. 8. Paroxysmal atrial fibrillation. 9. Severe hypokalemia. 10. Hypernatremia secondary to dehydration improved now. DISCUSSION AND PLAN: 1. Patient is replaced with potassium chloride for severe hypokalemia. 2. The patient will be undergoing a barium esophagogram and workup for dysphagia. 3. Psychiatry has been consulted as well due to flat affect and suspected psychogenic dysphagia. 4. We will continue with home medications and continue the pain management. 5. Further recommendations based on the clinical course. 6. Deep venous thrombosis prophylaxis with heparin subcu.
[2016-07-23] MEDS: MAGNESIUM SULFATE-D5W PMX 1 GM in DEXTROSE/WATER 1 100ML.BAG IVPB SCH ×2 (11:42→15:01)
[2016-07-23] MEDS: AMIODARONE 200 MG TAB PO SCH (12:15)
[2016-07-23] MEDS: POTASSIUM CHLORIDE ER 10 MEQ TAB.ER.PRT PO SCH (12:15)
[2016-07-23] MEDS: CARVEDILOL 12.5 MG TAB PO SCH (12:15)
[2016-07-23] MEDS: ASPIRIN 81 MG CHEW PO SCH (12:15)
[2016-07-23] MEDS: LOSARTAN 50 MG TAB PO SCH (12:18)
[2016-07-23 12:46] LABS: Glucose,Whole Blood 146 mg/dL (75-99)
[2016-07-23] MEDS: MEGESTROL 400 MG/10 ML CUP PO SCH ×2 (13:20→15:10)
--- NOTE | 2016-07-23 13:22 | P.PN ---
Subjective Principal diagnosis: Dysphagia 71-year-old female reevaluated in regards to ongoing dysphagia. Unable to proceed with barium esophagram yesterday; she would not stand for the procedure. Takes medications without difficulty but not able to tolerate diet over the last few months with 20 kg weight loss. Objective - Vital Signs Vital signs: Vital Signs Temp 98 F 07/23/16 12:47 Pulse 70 07/23/16 12:47 Resp 17 07/23/16 12:47 BP 168/75 07/23/16 12:47 Pulse Ox 97 07/23/16 12:47 Intake & Output 07/22/16 07/23/16 07/23/16 18:59 06:59 18:59 Intake Total 200 Output Total 1300 Balance -1100 Weight 73 kg 73 kg Intake: Oral 200 Output: Urine 1300 Straight 1300 Other: Voiding Method Bedpan Bedpan Bedpan # Voids 1 1 # Bowel Movements 0 0 - Exam General appearance: The patient is alert, oriented, in no acute distress. Flat affect. HET: Head is normocephalic and atraumatic. Pupils are equal and reactive. Oropharynx is clear without lesions. Neck: Supple without lymphadenopathy. Trachea midline. Heart: S1 S2. Regular rate and rhythm. Lungs: No crackles or wheezes are heard. Abdomen: Soft, nontender, nondistended with bowel sounds. No peritoneal signs. No palpable organomegaly or masses. Extremities: Normal skin color and turgor. No cyanosis, rash, ulceration, clubbing, or edema. Radial and pedal pulses are 2/4 bilaterally. Neurological: No focal deficits. Strength and sensation are grossly intact. - Labs CBC & Chem 7: 07/22/16 06:23 07/23/16 07:26 Labs: Abnormal Lab Results - Last 24 Hours (Table) 07/22/16 07/22/16 07/22/16 Range/Units 16:56 19:01 20:57 Potassium 3.2 L (3.5-5.1) mmol/L POC Glucose (mg/dL) 145 H 134 H (75-99) mg/dL Magnesium (1.6-2.3) mg/dL 07/23/16 07/23/16 07/23/16 Range/Units 05:56 07:26 07:26 Potassium 2.8 L* (3.5-5.1) mmol/L POC Glucose (mg/dL) 127 H (75-99) mg/dL Magnesium 1.1 L (1.6-2.3) mg/dL 07/23/16 Range/Units 12:39 Potassium (3.5-5.1) mmol/L POC Glucose (mg/dL) 146 H (75-99) mg/dL Magnesium (1.6-2.3) mg/dL Assessment and Plan (1) Dysphagia Narrative/Plan: 71-year-old female with persistent dysphagia 2 months duration with mid esophageal pressure after ingestion of foods without odynophagia status post CABG May 2016 with 20 kg weight loss. Rule out mechanical etiology of dysphagia possible stricture disease. Cannot exclude a component of underlying psychogenic dysphagia with flat affect. Status: Acute Plan: 1. We'll proceed with EGD evaluation today to rule out mechanical obstruction and/or stricture. 2. We'll hold off on PEG tube placement for now. Await psychiatry consultation. We'll start Megace 400 mg daily and evaluate. Dietary consultation suggest protein shake supplementation 3 times daily. We'll consider PEG tube placement in near future if she is unable to maintain an adequate caloric intake despite medication adjustments. 3. We'll continue to follow with you. Assessment and plan a care discussed with Dr. Kwon.
--- NOTE | 2016-07-23 14:01 | P.CON ---
Psychiatric Consult - . Consult date: 07/23/16 Consult:: The patient's physician consulted psychiatry for an evaluation of depression. I reviewed the medical record and interviewed Ms. Hector. She has a 71-year- old woman admitted to medicine service with generalized weakness, nausea, vomiting and dehydration. She was discharged from medicine service on 2016 for the treatment of same similar complaints. Dr. Cyr performed a psychiatric evaluation on 07/11/2016 and concluded that she had an adjustment disorder with depressed depressed mood and did not recommend treatment with name depressant. She had difficulty providing a clear history. She was preoccupied with her vomiting and difficulty eating. She had difficulty answering questions about depression. She also difficulty with providing information about her current and past social history including her living situation. When I asked her about her past history she talked about "[place]" and made a comment that she should never have gone to [place]. She appeared confused when I asked her questions about a possible trip to [place]; at one point gave the impression that she may have lived for a period [place]. Because she had difficulty providing a clear history and answering questions about depression I administered the short form of the Geriatric Depression Scale. She answered only 1 question consistent with a geriatric depression- that she feels that she has more problems with memory than most. Because of difficulties she demonstrated with attention and memory I performed the [facility] Orientation Memory and Concentration test. Her total weighted error score was 22; a total weighted store greater than 10 is consistent with a dementia. She knew the year and the month. She was able to repeat the memory phrase "Homer Finnegan, [address] [place] [address].". She was unable to estimate the time correctly within 1 hour actual time. She made more than 2 errors when she attempted to count backwards from 20 to one. She made several errors and naming the months of the year in reverse order (beginning with June). She was unable to remember the memory phrase asked the above distraction exercises. We then administered the Mini-Mental State Examination (MMSE). Her total score was 24; a score less than 27 is consistent with impaired cognitive functioning. She knew the date, day, month, year and season. She knew the country, the hospital and the floor. In response to questions about state and how she replied "[place] ... [place]." She was able to register 3 words (varun, table, coin). She correctly spelled word "world" backwards. She was unable to recall the memory words. She correctly named a "pen" and "amaya". She correctly repeated the phrase "no if's, ands or buts." She correctly followed a 3 stage command. She was able to follow a simple written sentence (close your eyes). She was able to write a sentence with a subject and verb. She did not correctly copy the intersecting pentagram diagram. Impression: She does not appear to have a major depressive disorder at least demonstrated by her answers to the Geriatric Depression Scale. However, she had difficulty providing a coherent past history and demonstrated impairments in orientation, recall and visual-spatial reasoning on mental status testing. I am uncertain is the cause of the cognitive impairment. It may be related to her current medical problems including dehydration or it could be due to other independent factors including a degenerative illness. Diagnosis: Cognitive disorder NOS, rule out dementia Recommendation: There is no indication for antidepressant medication at this time. She may benefit from a thorough evaluation of her cognitive functioning. Consider a neurological consult and/or referral for a neuropsychological testing. 07/23/16 13:42
[2016-07-23] MEDS ORDERED: PROPOFOL 10 MG/ML 20 ML VIAL IV ONE (14:09)
[2016-07-23] MEDS ORDERED: IV FLUID CONTINUATION 1,000 ML IV ONE (14:11)
--- NOTE | 2016-07-23 14:24 | P.PCN ---
Date of Procedure: 07/23/16 Procedure(s) Performed: BRIEF HISTORY: Patient is a 71-year-old, pleasant, white female, scheduled for an upper endoscopy to evaluate for any upper GI pathology as a cause of decreased appetite and dysphagia for the last several weeks duration. The patient underwent CABG in May 2016 and since then her appetite has been declining. She continues to complain of dysphagia with solids and liquids. She was scheduled for a barium esophagogram but could not be performed by radiology. She is hence scheduled for an upper endoscopy to evaluate further prior to any consideration for PEG tube placement. PROCEDURE PERFORMED: Esophagogastroduodenoscopy with biopsy. PREOPERATIVE DIAGNOSIS: Dysphagia and decreased appetite. IV sedation per anesthesia. PROCEDURE: After informed consent was obtained, the patient was brought into the endoscopy unit. IV conscious sedation was administered by Anesthesia under continuous monitoring. Initially the Olympus GIF-140 video endoscope was inserted into the mouth. Esophagus intubated without any difficulty. It was gradually advanced into the stomach and duodenum and carefully examined. The bulb and the second part of the duodenum appeared normal. The scope at this time was withdrawn to the stomach, adequately insufflated with air, and upon careful examination, mucosa of the antrum had mild gastritis and biopsies were done from this area. The body, cardia and the fundus appeared normal. The scope was then withdrawn into the esophagus. Moderate size hiatal hernia noted. The GE junction was located at 35 cm from the incisors. The esophagus appeared normal. There were no erosions or ulcerations seen and the patient tolerated the procedure well. IMPRESSION: 1. Normal-appearing esophagus with no evidence of esophageal stricture or esophagitis. 2. Small to moderate hiatal hernia. 3. Mild antral gastritis RECOMMENDATIONS: The findings of this examination were discussed with the patient. At this time and continue to encourage her to eat and also start give her a trial of Megace disseminated her appetite. Also recommend consultation with psychiatry for antidepressants. Despite with all this approach if she still has significant decreased oral intake, will consider proceeding with a PEG tube placement next week.
[2016-07-23 16:52] LABS: Glucose,Whole Blood 162 mg/dL (75-99)
[2016-07-23 17:15] LABS: Appearance,Urine Clear (Clear); Bilirubin,Urine Negative (Negative); Glucose,Urine (UA) Negative (Negative); Ketones,Urine 2+ (Negative); Leukocyte Esterase,Urine Negative (Negative); Nitrite,Urine Negative (Negative); Protein,Urine Trace (Negative); Specific Gravity,Urine 1.011 (1.001-1.035); UA Billing (MACRO vs. MICRO) CHEM
[2016-07-23] MEDS ORDERED: Magnesium Replacement Protocol 1 EACH MISC MISCELLANE PRN (17:58)
[2016-07-23 18:20] LABS: Magnesium 1.9 mg/dL (1.6-2.3); Potassium 3.3 mmol/L (3.5-5.1)
[2016-07-23 21:40] LABS: Glucose,Whole Blood 152 mg/dL (75-99)
[2016-07-23] MEDS: amLODIPine 5 MG TAB PO SCH (21:46)
[2016-07-23] MEDS: ATORVASTATIN 80 MG TAB PO SCH (21:46)
[2016-07-24] MEDS: HEPARIN SODIUM,PORCINE 5,000 UNIT/ML 1 ML VIAL SQ SCH ×3 (02:40→16:10)
[2016-07-24 06:35] LABS: Basophils % (A) 0 %; CH 31.4; CHCM 34.7; Eosinophils # (A) 0.1 k/uL (0-0.7); Eosinophils % (A) 2 %; HCT 30.1 % (34.0-46.0); HDW 3.34; HGB 10.1 gm/dL (11.4-16.0); Luc # (Auto) 0.12; Luc % (Auto) 2; Lymphocytes # (A) 0.8 k/uL (1.0-4.8); Lymphocytes % (A) 14 %; MCH 30.6 pg (25.0-35.0); MCHC 33.7 g/dL (31.0-37.0); MCV 90.8 fL (80.0-100.0); Mean Platelet Volume 9.2; Monocytes # (A) 0.2 k/uL (0-1.0); Monocytes % (A) 4 %; Neutrophils # (A) 4.8 k/uL (1.3-7.7); Neutrophils % (A) 78 %; RBC 3.31 m/uL (3.80-5.40); RDW 14.5 % (11.5-15.5); WBC 6.1 k/uL (3.8-10.6); WBC (Perox) 6.01
[2016-07-24] MEDS ORDERED: SODIUM CHLORIDE 0.9% 500 ML IV ONE (06:46)
[2016-07-24] MEDS: INSULIN LISPRO (humaLOG) 300 UNIT/3 ML VIAL SQ SCH ×4 (07:02→21:18)
[2016-07-24 07:08] LABS: Glucose,Whole Blood 124 mg/dL (75-99)
[2016-07-24 07:22] LABS: ALT 32 U/L (9-52); AST 20 U/L (14-36); Alkaline Phosphatase 62 U/L (38-126); Anion Gap 10 mmol/L; Blood Urea Nitrogen 17 mg/dL (7-17); Calcium 7.4 mg/dL (8.4-10.2); Carbon Dioxide 25 mmol/L (22-30); Chloride 106 mmol/L (98-107); Glucose 133 mg/dL (74-99); Magnesium 1.5 mg/dL (1.6-2.3); Non-African American GFR(MDRD) >60 (>60 ml/min/1.73 sqM); Potassium 3.4 mmol/L (3.5-5.1); Sodium 141 mmol/L (137-145); Total Bilirubin 1.2 mg/dL (0.2-1.3)
[2016-07-24] MEDS: IPRATROPIUM-ALBUTEROL 3 ML NEB INHALATION SCH ×4 (09:04→20:46)
[2016-07-24] MEDS: MEGESTROL 400 MG/10 ML CUP PO SCH (09:22)
[2016-07-24] MEDS: POTASSIUM CHLORIDE ER 10 MEQ TAB.ER.PRT PO SCH (09:22)
[2016-07-24] MEDS: NYSTATIN 100,000 UNIT/ML SUSP 500,000 UNIT/5 ML CUP PO SCH ×4 (09:22→21:30)
[2016-07-24] MEDS: AMIODARONE 200 MG TAB PO SCH (09:22)
[2016-07-24] MEDS: ASPIRIN 81 MG CHEW PO SCH (09:22)
[2016-07-24] MEDS: PANTOPRAZOLE 40 MG TABLET PO SCH (09:23)
[2016-07-24] MEDS: LOSARTAN 50 MG TAB PO SCH (09:23)
[2016-07-24] MEDS: CARVEDILOL 12.5 MG TAB PO SCH (09:23)
--- NOTE | 2016-07-24 09:57 | PN ---
DATE OF SERVICE: 07/23/2016 INTERVAL HISTORY: Ms. 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 The patient was seen by psychiatry and recommended no antidepressant at this time and recommended neuropsychological evaluation. Otherwise, GI was consulted. EGD was done today and showed normal appearance of esophagus and mild antral gastritis noted. Otherwise, essentially negative study. Otherwise, the patient is not tolerating a diet. Patient is not interested in eating at this time. No fever. No chills. No complaints of chest pain or short of breath. Patient does have flat affect. Complete review of systems negative except for the above. CURRENT MEDICATIONS: Reviewed. PHYSICAL EXAMINATION: A 71-year-old female, lying in bed comfortably, awake, alert, oriented x3, appears to be in no apparent distress. VITALS: Blood pressure is 168/75, pulse is 70, respirations 17, temperature afebrile, pulse ox 97% on room air. HEENT: Atraumatic, normocephalic. Neck is supple. No JVD. CVS: S1, S2 heard. No murmurs, no gallop. LUNGS: Bilateral air entry is present. No wheezing noted. No crackles. Nonlabored breathing. ABDOMEN: Soft, nontender. Bowel sounds are present. METALLURGIST HELPER: Awake, alert and oriented x3. Patient does have flat affect. Able to move all her extremities. EXTREMITIES: No edema. Pulses palpable bilaterally. No clubbing or cyanosis. PSYCHIATRIC: Cooperative. Could not be assessed completely. LABORATORY DATA: Reviewed. IMPRESSION: 1. Dysphagia, status post esophagogastroduodenoscopy and no obstruction noted. 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 Psychiatric recommended neuropsychological evaluation. Otherwise, patient is not interested in eating at this time. 2. Intermediate troponin leak. 3. History of coronary artery disease, status post coronary artery bypass graft in May 2016. 4. Type 2 diabetes mellitus. 5. Hypertension. 6. Hyperlipidemia. 7. Acute on chronic kidney disease stage III. 8. Paroxysmal atrial fibrillation. 9. Hypokalemia. Continue to replace. 10. Hypernatremia secondary to dehydration, improved now. Discussion and plan: Patient will be continued on IV fluids and potassium replacement. Continue the current management. Encourage p.o. intake. Will consult neurology as well. GI and Psychiatry are following the patient. If all the measures fail then possible PEG tube placement sometime next week as per GI. Continue the DVT prophylaxis. Further recommendations based on the clinical course.
[2016-07-24 11:53] LABS: Glucose,Whole Blood 163 mg/dL (75-99)
[2016-07-24] MEDS ORDERED: Potassium Replacement Protocol 1 EACH MISC MISCELLANE PRN (12:26)
[2016-07-24 14:23] LABS: Glucose,Whole Blood 132 mg/dL (75-99)
--- NOTE | 2016-07-24 14:39 | CT ---
EXAMINATION TYPE: CT brain wo con DATE OF EXAM: 07/24/2016 2:22 PM COMPARISON: NONE INDICATION: Confusion. DLP: 1115.00 mGycm, Automated exposure control for dose reduction was used. CONTRAST: None CT of the brain is performed utilizing 3 mm thick sections through the posterior fossa and 3 mm thick sections through the remaining calvarium. Study is performed within 24 hours of arrival to the hosp [facility]. No abnormal hyperdensity is present to suggest an acute intracranial hemorrhage. No mass lesion is evident. No acute infarcts are evident. There is mild periventricular white matter hypodensity, likely on the basis of chronic white matter ischemic changes. Ventricles and sulci are appropriate for the patient age. Paranasal sinuses and mastoid air cells within the [id number] are clear. IMPRESSIONS: 1. No acute intracranial process.
[2016-07-24] MEDS: MAGNESIUM SULFATE-D5W PMX 1 GM in DEXTROSE/WATER 1 100ML.BAG IVPB SCH ×2 (14:57→16:09)
[2016-07-24] MEDS: ONDANSETRON 4 MG/2 ML VIAL IVP PRN (15:33)
--- NOTE | 2016-07-24 16:13 | CT ---
EXAMINATION TYPE: CT angio head neck DATE OF EXAM: 07/24/2016 2:45 PM COMPARISON: NONE HISTORY: Confusion, new onset. CT DLP: 456.00 mGycm Automated exposure control for dose reduction was used. TECHNIQUE: Performed with IV Contrast, patient injected with 65 mL of Visipaque 320. Imaging is performed over the [place] and carotid system. FINDINGS: The internal carotid arteries bifurcate normally and A1 and M1 segments. A2 segments appear normal. T he anterior communicating artery is patent. Posterior cerebral vasculature appears unremarkable. Post erior communicating arteries may be patent. Atheromatous plaquing is present at the internal carotid artery origins. There appears to be some mod erate narrowing of the left internal carotid artery origin. More severe narrowing appears to be at th e origin of the right internal carotid artery. On source images this appears to be less than 50% narrowed at the origin on the left although this ap pears greater on the reconstructed images. This appears less stenotic at the origin of the right inte rnal carotid artery of less than 50%. IMPRESSION: 1. INTERNAL CAROTID ARTERIES HAVE ATHEROMATOUS PLAQUING PRESENT BILATERALLY. THIS APPEARS TO BE APPRO ACHING BUT DOES NOT APPEAR TO EXCEED 50% AND IS GREATER ON THE LEFT THAN THE RIGHT. 2. [place] APPEARS WITHIN NORMAL LIMITS.
[2016-07-24 17:16] LABS: Glucose,Whole Blood 154 mg/dL (75-99)
[2016-07-24] MEDS: POTASSIUM CHLORIDE 10 MEQ, LIDOCAINE 2% INJ 10 MG in SODIUM CHLORIDE 0.9% 100 ML IV SCH ×2 (17:28→19:06)
[2016-07-24 21:04] LABS: Glucose,Whole Blood 139 mg/dL (75-99)
[2016-07-24] MEDS: ATORVASTATIN 80 MG TAB PO SCH (21:31)
[2016-07-24] MEDS: amLODIPine 5 MG TAB PO SCH (21:31)
[2016-07-25] MEDS: HEPARIN SODIUM,PORCINE 5,000 UNIT/ML 1 ML VIAL SQ SCH ×3 (01:58→16:41)
[2016-07-25 06:11] LABS: Glucose,Whole Blood 128 mg/dL (75-99)
[2016-07-25] MEDS: INSULIN LISPRO (humaLOG) 300 UNIT/3 ML VIAL SQ SCH ×4 (06:12→21:47)
[2016-07-25] MEDS: IPRATROPIUM-ALBUTEROL 3 ML NEB INHALATION SCH ×4 (07:30→20:30)
[2016-07-25] MEDS: POTASSIUM CHLORIDE ER 10 MEQ TAB.ER.PRT PO SCH (09:21)
[2016-07-25] MEDS: MEGESTROL 400 MG/10 ML CUP PO SCH (09:21)
[2016-07-25] MEDS: NYSTATIN 100,000 UNIT/ML SUSP 500,000 UNIT/5 ML CUP PO SCH ×4 (09:21→22:11)
[2016-07-25] MEDS: ASPIRIN 81 MG CHEW PO SCH (09:21)
[2016-07-25] MEDS: PANTOPRAZOLE 40 MG TABLET PO SCH (09:22)
[2016-07-25] MEDS: AMIODARONE 200 MG TAB PO SCH (09:22)
[2016-07-25] MEDS: LOSARTAN 50 MG TAB PO SCH (09:22)
[2016-07-25] MEDS: CARVEDILOL 12.5 MG TAB PO SCH (09:22)
[2016-07-25 09:55] LABS: CH 31.1; HCT 28.8 % (34.0-46.0); HDW 3.29; HGB 9.5 gm/dL (11.4-16.0); MCH 30.3 pg (25.0-35.0); MCHC 33.1 g/dL (31.0-37.0); MCV 91.6 fL (80.0-100.0); RBC 3.15 m/uL (3.80-5.40); RDW 14.5 % (11.5-15.5); WBC 6.8 k/uL (3.8-10.6)
[2016-07-25 09:58] LABS: Anion Gap 9 mmol/L; Calcium 7.2 mg/dL (8.4-10.2); Carbon Dioxide 23 mmol/L (22-30); Chloride 108 mmol/L (98-107); Glucose 125 mg/dL (74-99); Non-African American GFR(MDRD) >60 (>60 ml/min/1.73 sqM); Sodium 140 mmol/L (137-145); Total Bilirubin 1.1 mg/dL (0.2-1.3); Total Protein 4.9 g/dL (6.3-8.2)
[2016-07-25 10:03] LABS: Potassium 3.5 mmol/L (3.5-5.1)
[2016-07-25 10:04] LABS: ALT 29 U/L (9-52); AST 22 U/L (14-36); Alkaline Phosphatase 60 U/L (38-126); Blood Urea Nitrogen 13 mg/dL (7-17)
[2016-07-25 11:31] LABS: Glucose,Whole Blood 128 mg/dL (75-99)
--- NOTE | 2016-07-25 16:17 | P.CNNES ---
History of Present Illness Consult date: 07/25/16 Requesting physician: Zhane Rizo Reason for Consult: Confusion and neurological changes History of Present Illness: Patient is a 71-year-old female who is being evaluated by the neurology service on 07/25/2016 per the request of Dr. Rizo for the above complaints. Patient has history of atrial fibrillation and coronary artery disease for which she underwent coronary artery bypass grafting May 2016. Since then, patient has been declining due to poor oral intake and dehydration. It is reported patient has lost 40 pounds in the last 2 and half months. Patient has had workup by GI which showed no abnormality explaining symptoms. Patient also underwent psychological evaluation which suggested no antidepressant at this time. There is suspicion of psychogenic dysphagia. Patient does have history of breast cancer. Staff reports asymmetry of eyes at times. Patient had CT/CTA which were negative for any acute process. At the time of my evaluation, patient is resting comfortably in bed and appears to be in no acute distress. Review of Systems REVIEW OF SYSTEMS: Otherwise unremarkable and noncontributory. Past Medical History Past Medical History: Atrial Fibrillation, Coronary Artery Disease (CAD), Cancer , Diabetes Mellitus, Hyperlipidemia, Hypertension, Myocardial Infarction (NM) Additional Past Medical History / Comment(s): 07/20/16 c/o weakness n/v. CAD and previous NSTEMI and CABG, paroxysmal AFIB, Breast CA, Last Myocardial Infarction Date:: date unknown History of Any Multi-Drug Resistant Organisms: None Reported Past Surgical History: Breast Surgery, Cholecystectomy, Coronary Bypass/CABG, Heart Catheterization With Stent, Tonsillectomy Additional Past Surgical History / Comment(s): Rt Mastectomy with radiation treatment, CABG , barium swallow,egd Past Anesthesia/Blood Transfusion Reactions: No Reported Reaction Date of Last Stent Placement:: dated unknown Past Psychological History: No Psychological Hx Reported Smoking Status: Former smoker Past Alcohol Use History: Rare Additional Past Alcohol Use History / Comment(s): started smoking in her teens, quit smoking 2013 Past Drug Use History: None Reported - Past Family History Brother(s) Family Medical History: Chest Pain / Angina, Myocardial Infarction (NM) Additional Family Medical History / Comment(s): at age 32 Son(s) Family Medical History: Coronary Artery Disease (CAD), Myocardial Infarction (NM ) Additional Family Medical History / Comment(s): at age 38 Mother Family Medical History: Coronary Artery Disease (CAD), Myocardial Infarction (NM ) Father Family Medical History: No Reported History Medications and Allergies Home Medications Medication Instructions Recorded Confirmed Type Atorvastatin [Lipitor] 80 mg PO HS 06/06/16 07/20/16 History Furosemide [Lasix] 40 mg PO DAILY 06/06/16 07/20/16 History Acetaminophen Tab [Tylenol Tab] 650 mg PO Q4H PRN 07/08/16 07/20/16 History Carvedilol [Coreg] 25 mg PO DAILY 07/08/16 07/20/16 History HYDROcodone/APAP 5-325MG [[place] 1 tab PO BID PRN 07/08/16 07/20/16 History 5-325] Nitroglycerin Sl Tabs [Nitrostat] 0.4 mg SUBLINGUAL Q5M PRN 07/08/16 07/20/16 History Sennosides-Docusate Sodium 1 tab PO HS PRN 07/08/16 07/20/16 History [Senokot-S] Amiodarone [Cordarone] 200 mg PO DAILY 07/20/16 07/20/16 History Nystatin 100,000 Unit/ml Susp 4 ml PO QID 07/20/16 07/20/16 History [Mycostatin Oral Susp] Ondansetron [Zofran ODT] 4 mg PO Q12H PRN 07/20/16 07/20/16 History Allergies Allergy/AdvReac Type Severity Reaction Status Date / Time methylene blue Allergy Unknown Verified 07/20/16 16:30 Physical Examination - Vital Signs Vital Signs: Vital Signs Temp Pulse Pulse Resp BP Pulse Ox 07/25/16 11:47 97.2 F L 108 H 16 182/81 97 07/25/16 08:00 97.5 F L 88 18 196/85 98 07/25/16 07:41 72 07/25/16 07:31 68 07/25/16 04:00 97.1 F L 68 16 177/81 98 07/25/16 00:00 64 16 184/82 98 07/24/16 20:00 97.1 F L 63 16 182/81 100 07/24/16 16:00 97.0 F L 88 16 132/68 99 Intake and Output 07/25/16 07/25/16 07/25/16 06:59 14:59 22:59 Intake Total 100 800 Output Total 600 925 Balance -500 800 -925 Intake: Intake, IV Titration 500 Amount IV Fluid Continuation 1, 500 000 ml As IV .[facility] Rx#:[id number] Oral 100 300 Output: Urine 600 925 Uretheral (Sandoval) 600 Other: Voiding Method Indwelling Catheter Indwelling Catheter Weight 79.5 kg PHYSICAL EXAM: GENERAL APPEARANCE: Patient is a well-developed, female who appears to be in no acute distress. HEENT: Normocephalic, atraumatic, no facial asymmetry is seen. Neck is supple with no masses felt. CARDIOVASCULAR: Irregular rhythm ABDOMEN: Nontender, nondistended. EXTREMITIES: Show no edema or clubbing. NEUROLOGICAL EXAM: Patient is awake, alert, and oriented to self only. Speech and language are normal. No facial asymmetry is seen on cranial nerve testing. Patient has decreased lateral movement of the right eye and occasional nystagmus is noted. Strength is full in all 4 extremities. Sensory exam to light touch is normal in all 4 extremities. No tremors or seizure-like activity is noted. Results - Laboratory Findings CBC and BMP: 07/25/16 09:35 07/25/16 09:35 Abnormal Lab Findings: Abnormal Labs 07/22/16 07/22/16 07/22/16 16:56 19:01 20:57 RBC Hgb Hct Plt Count Lymphocytes # Potassium 3.2 L Chloride Creatinine Glucose POC Glucose (mg/dL) 145 H 134 H Calcium Magnesium Total Protein Albumin Urine Protein Urine Ketones 07/23/16 07/23/16 07/23/16 05:56 07:26 07:26 RBC Hgb Hct Plt Count Lymphocytes # Potassium 2.8 L* Chloride Creatinine Glucose POC Glucose (mg/dL) 127 H Calcium Magnesium 1.1 L Total Protein Albumin Urine Protein Urine Ketones 07/23/16 07/23/16 07/23/16 12:39 16:46 17:00 RBC Hgb Hct Plt Count Lymphocytes # Potassium Chloride Creatinine Glucose POC Glucose (mg/dL) 146 H 162 H Calcium Magnesium Total Protein Albumin Urine Protein Trace H Urine Ketones 2+ H 07/23/16 07/23/16 07/24/16 17:34 20:57 06:08 RBC Hgb Hct Plt Count Lymphocytes # Potassium 3.3 L 3.4 L Chloride Creatinine 0.50 L Glucose 133 H POC Glucose (mg/dL) 152 H Calcium 7.4 L Magnesium 1.5 L Total Protein 5.0 L Albumin 2.7 L Urine Protein Urine Ketones 07/24/16 07/24/16 07/24/16 06:08 06:59 11:45 RBC 3.31 L Hgb 10.1 L Hct 30.1 L Plt Count Lymphocytes # 0.8 L Potassium Chloride Creatinine Glucose POC Glucose (mg/dL) 124 H 163 H Calcium Magnesium Total Protein Albumin Urine Protein Urine Ketones 07/24/16 07/24/16 07/24/16 14:09 17:11 21:01 RBC Hgb Hct Plt Count Lymphocytes # Potassium Chloride Creatinine Glucose POC Glucose (mg/dL) 132 H 154 H 139 H Calcium Magnesium Total Protein Albumin Urine Protein Urine Ketones 07/25/16 07/25/16 07/25/16 06:10 09:35 09:35 RBC 3.15 L Hgb 9.5 L Hct 28.8 L Plt Count 134 L Lymphocytes # Potassium Chloride 108 H Creatinine 0.47 L Glucose 125 H POC Glucose (mg/dL) 128 H Calcium 7.2 L Magnesium Total Protein 4.9 L Albumin 2.7 L Urine Protein Urine Ketones 07/25/16 11:29 RBC Hgb Hct Plt Count Lymphocytes # Potassium Chloride Creatinine Glucose POC Glucose (mg/dL) 128 H Calcium Magnesium Total Protein Albumin Urine Protein Urine Ketones Assessment and Plan Plan: Impression: 1. Dysphagia, questionable psychogenic dysphagia 2. Nystagmus/right lateral rectus muscle weakness 3. Confusion 4. History of CAD/status post CABG in May 2016 5. History of breast cancer 6. Type 2 diabetes mellitus 7. Paroxysmal atrial fibrillation Recommendations: Patient does appear to be confused. It is unclear what her baseline actually is. She also has occasional nystagmus with right lateral rectus muscle weakness. I recommend having an MRI with and without contrast done if this is cleared with cardiology. If not, I recommend a computed tomography scan to be done with and without contrast. I will switch her aspirin to Plavix 75 mg by mouth daily. I will order an EEG, fasting lipid panel, and homocysteine level. Continue neurological checks. I will continue to follow with you. Further recommendations to follow. Thank you for allowing me to participate in the care of your patient. Feel free to contact me with any questions or concerns. I performed an examination of the patient and discussed the management with the AIRCRAFT MACHINIST HELPER. I have reviewed the AIRCRAFT MACHINIST HELPER notes and agree with the findings and plan of care.
[2016-07-25 16:30] LABS: Glucose,Whole Blood 129 mg/dL (75-99)
[2016-07-25 16:48] LABS: Cholesterol 133 mg/dL (<200); HDL Cholesterol 41 mg/dL (40-60); Triglycerides 178 mg/dL (<150)
[2016-07-25 21:17] LABS: Glucose,Whole Blood 112 mg/dL (75-99)
[2016-07-25] MEDS: CLOPIDOGREL 75 MG TAB PO SCH (22:10)
[2016-07-25] MEDS: ATORVASTATIN 80 MG TAB PO SCH (22:11)
[2016-07-25] MEDS: amLODIPine 5 MG TAB PO SCH (22:11)
[2016-07-26] MEDS: HEPARIN SODIUM,PORCINE 5,000 UNIT/ML 1 ML VIAL SQ SCH ×4 (00:02→22:28)
[2016-07-26] MEDS: INSULIN LISPRO (humaLOG) 300 UNIT/3 ML VIAL SQ SCH ×4 (06:52→22:15)
[2016-07-26 06:59] LABS: Glucose,Whole Blood 112 mg/dL (75-99)
[2016-07-26] MEDS: CARVEDILOL 12.5 MG TAB PO SCH (07:10)
[2016-07-26] MEDS: PANTOPRAZOLE 40 MG TABLET PO SCH (07:19)
[2016-07-26] MEDS: LOSARTAN 50 MG TAB PO SCH (07:53)
[2016-07-26] MEDS: CLOPIDOGREL 75 MG TAB PO SCH (07:53)
[2016-07-26] MEDS: AMIODARONE 200 MG TAB PO SCH (07:53)
[2016-07-26] MEDS: MEGESTROL 400 MG/10 ML CUP PO SCH (07:54)
[2016-07-26] MEDS: NYSTATIN 100,000 UNIT/ML SUSP 500,000 UNIT/5 ML CUP PO SCH ×4 (07:54→22:28)
[2016-07-26] MEDS: POTASSIUM CHLORIDE ER 10 MEQ TAB.ER.PRT PO SCH (07:55)
[2016-07-26] MEDS: IPRATROPIUM-ALBUTEROL 3 ML NEB INHALATION SCH ×4 (08:41→20:55)
[2016-07-26 11:53] LABS: Glucose,Whole Blood 130 mg/dL (75-99)
--- NOTE | 2016-07-26 12:47 | PN ---
DATE OF SERVICE: 07/24/2016 INTERVAL HISTORY: Ms. Hector is a 71-year-old with known history of atrial fibrillation, paroxysmal atrial fibrillation, currently maintained in sinus rhythm, coronary artery disease with history of bypass graft in May 2016 was admitted to hospital for poor oral intake and dysphagia. The patient being followed by psychiatry who recommended no antidepressants at this time. Otherwise, gastroenterology is following the patient and EGD showed no obstruction. Today morning, patient become more confused and dysarthria with ( ). The patient underwent CT of the head that showed no acute process. Neurology has been consulted for further evaluation. Otherwise patient still not eating well. No fever. No chills. No acute overnight issues. The patient seems confused. REVIEW OF SYSTEMS: No complaints of chest pain or shortness of breath. No abdominal pain. No diarrhea or dysuria. Complete review of systems could not be obtained from the patient. CURRENT MEDICATIONS: Reviewed. PHYSICAL EXAMINATION: A 71-year-old female, lying in the bed awake, alert, oriented x2 to 3, appears to be no apparent distress, confused. VITALS: Blood pressure is 178/79, pulse is 82, respiration 16, temperature afebrile, pulse ox 99% on room air. HEENT: Atraumatic, normocephalic. Neck is supple. No JVD. CVS: S1, S2 heard. No murmurs, no gallop. Currently in sinus rhythm. No leg swelling. ABDOMEN: No nausea, no abdominal pain. Nontender. Bowel sounds are present. 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 No focal neurologic deficits. EXTREMITIES: No edema. Pulse palpable bilaterally. No clubbing or cyanosis. PSYCHIATRIC: Cooperative. Flat affect. LABORATORY DATA: WBC 6.1, hemoglobin 10.1, platelets 178, sodium 141, potassium 3.4, chloride 106, bicarb is 25. BUN 17, creatinine 0.5, magnesium 1.5, albumin 2.7. UA negative for infection. CT head no acute ( ) process noted. IMPRESSION: 1. Dysarthria and ( ) gaze, possible acute cerebrovascular accident. CT head is negative. Neurology has been consulted for further evaluation. 2. Dysphagia, EGD showed no obstruction. 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 PEG tube placement does not get better. 3. Intermediate troponin leak, unlikely acute coronary syndrome at this time. 4. History of coronary artery disease, status post bypass graft in May 2016. 5. Type 2 diabetes mellitus. 6. Hypertension. 7. Hyperlipidemia. 8. Acute on chronic kidney disease stage III. 9. Paroxysmal atrial fibrillation, currently maintained in sinus rhythm. 10. Hypokalemia. 11. Hypomagnesemia. 12. Hypernatremia secondary to dehydration, improved now. DISCUSSION AND PLAN: The patient will be continued on IV fluids and replacement of electrolytes and follow up neurology recommendations and gastroenterology is following this patient for the PEG tube placement if dysphagia does not get better. Psychiatry recommended no antidepressants at this time. Continue with the DVT prophylaxis. Further recommendations based on clinical course. Prognosis is guarded.
--- NOTE | 2016-07-26 13:54 | PN ---
DATE OF SERVICE: 07/25/2016 INTERVAL HISTORY: Ms. Hector is a 71-year-old female with known history of coronary artery disease status post coronary artery bypass graft, paroxysmal atrial fibrillation and recent multiple admissions for dysphagia, came to the hospital with complaints of inability to take orally and dehydration. The patient is currently maintained on IV fluids. Patient was found to have upward gaze and nystagmus and neurology is following this patient, possible new onset cerebrovascular accident. CT head is negative. MRA recommended as per neurology. Otherwise positive for dysphagia. Patient is being worked up. An EGD was done and showed no obstruction or abnormality noted. Possible PEG tube placement if the dysphagia does not get better by next week. Currently, patient denied any complaints of chest pain or shortness of breath. Patient does have flat affect and is confused sometimes. No fever. No chills. No acute overnight issues. A complete review of systems could not be obtained from the patient. CURRENT MEDICATIONS: Reviewed. PHYSICAL EXAMINATION: A 71-year-old female, lying in bed comfortably, awake, alert, oriented, x2 to 3, appears to be in no apparent distress. VITALS: Blood pressure is 108/81, pulse 108, respirations 16, temperature afebrile, pulse ox is 99% on room air. HEENT: Atraumatic, normocephalic. NECK: Supple. No JVD. CVS: S1, S2 heard. No murmurs or gallops. Sinus rhythm. LUNGS: Bilateral air entry is present. No wheezing. No crackles. ABDOMEN: Soft, nontender. Bowel sounds present. 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 No focal deficits noted. No facial asymmetry. PSYCHIATRIC: Cooperative, could not be assessed completely, flat affect. EXTREMITIES: No edema. Pulses palpable bilaterally. No clubbing or cyanosis. LABS: WBC 6.8, hemoglobin 9.2, platelets 134, sodium 140, potassium 3.5, chloride 108, bicarb is 23, BUN 13, creatinine 0.47, magnesium 1.7, albumin 2.7. IMPRESSION: 1. Right nystagmus and dysarthria, rule out acute cerebrovascular accident. CT head is negative. Neurology recommended MRI of the brain at this time. 2. Dysphagia. 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 Status post EGD showing no acute abnormalities noted. PEG tube placement if dysphagia does not improve. 3. History of coronary artery disease, status post coronary artery bypass graft in May 2016. 4. Intermittent troponin elevation. No acute coronary syndrome. 5. Type 2 diabetes mellitus. 6. Hypertension. 7. Hyperlipidemia. 8. Acute on chronic kidney disease, stage III, improved. 9. Hyponatremia on admission secondary to dehydration, improved now. 10. Paroxysmal atrial fibrillation, currently maintained in sinus rhythm. 11. Hypokalemia and hypomagnesemia. 12. Mild to moderate protein calorie malnutrition with albumin level of 2.7. 13. DVT prophylaxis. RECOMMENDATIONS AND PLAN: A 71-year-old female admitted to the hospital with dysphagia and also suspected acute cerebrovascular accident at this time. We will continue the work-up for acute cerebrovascular including MRI. Continue IV fluids and monitor with replacement of electrolyte and current medications. Aspirin has been changed to Plavix now. CT angiogram showing no significant stenosis of the carotids. Further recommendations based on clinical course. Prognosis is guarded. The patient is being followed by GI and neurology. URMILA
[2016-07-26] MEDS: SODIUM CHLORIDE 0.45% 1,000 ML IV SCH (14:01)
[2016-07-26 16:09] LABS: Blood Urea Nitrogen 10 mg/dL (7-17); Non-African American GFR(MDRD) >60 (>60 ml/min/1.73 sqM)
--- NOTE | 2016-07-26 16:09 | P.PN ---
Subjective Principal diagnosis: Patient is a 71-year-old female who is being followed by the neurology service for altered mental status and neurological changes. Patient has history of atrial fibrillation and coronary artery disease for which she had coronary artery bypass grafting in May 2016. Patient has been declining since then due to poor oral intake and dehydration. Patient has had workup by GI which showed no abnormality to explain her symptoms. Patient also underwent psychological testing for which no antidepressant was recommended at this time. There is suspicion of psychogenic dysphagia. Patient does have history of breast cancer. Patient had CT/CTA which were negative for any acute process. We are awaiting an MRI to evaluate for possible contributing etiology. At the time of my evaluation, patient is resting comfortably in bed and appears to be in no acute distress. Objective - Vital Signs Vital signs: Vital Signs Temp 96.8 F L 07/26/16 11:25 Pulse 62 07/26/16 11:25 Resp 18 07/26/16 11:25 BP 191/83 07/26/16 11:25 Pulse Ox 99 07/26/16 11:25 Intake & Output 07/25/16 07/26/16 07/26/16 18:59 06:59 18:59 Intake Total 800 0 390 Output Total 925 1150 1000 Balance -125 -1150 -610 Weight 78.5 kg 78.5 kg Intake: Intake, IV Titration 500 150 Amount IV Fluid Continuation 1, 500 000 ml As IV .[facility] Rx#:[id number] Sodium Chloride 0.45% 1, 150 000 ml @ 75 mls/hr IV . [id number] [facility] Rx#:[id number] Oral 300 0 240 Output: Urine 925 1150 1000 Other: Voiding Method Indwelling Catheter Indwelling Catheter Indwelling Catheter # Bowel Movements 1 - Exam PHYSICAL EXAM: GENERAL APPEARANCE: Patient is a well-developed, female who appears to be in no acute distress. HEENT: Normocephalic, atraumatic, no facial asymmetry is seen. Neck is supple with no masses felt. CARDIOVASCULAR: Regular rate and rhythm. ABDOMEN: Nontender, nondistended. EXTREMITIES: Show no edema or clubbing. NEUROLOGICAL EXAM: Patient is awake, alert, and oriented to self only. Speech and language are normal. Facial asymmetry is seen on cranial nerve testing. Patient does have occasional nystagmus with decreased lateral movement of the right eye. Strength is full in all 4 extremities. Sensory exam to light touch is normal in all 4 extremities. No tremors or seizure-like activity is seen. - Labs CBC & Chem 7: 07/25/16 09:35 07/25/16 09:35 Labs: Abnormal Lab Results - Last 24 Hours (Table) 07/25/16 07/25/16 07/25/16 Range/Units 16:25 16:29 21:02 POC Glucose (mg/dL) 129 H 112 H (75-99) mg/dL Triglycerides 178 H (<150) mg/dL 07/26/16 07/26/16 Range/Units 06:33 11:45 POC Glucose (mg/dL) 112 H 130 H (75-99) mg/dL Triglycerides (<150) mg/dL Assessment and Plan Plan: Impression: 1. Dysphagia, questionable psychogenic dysphagia 2. Nystagmus/right lateral rectus muscle weakness/rule out stroke 3. Confusion 4. History of CAD/status post CABG in May 2016 5. History of breast cancer 6. Type 2 diabetes mellitus 7. Paroxysmal atrial fibrillation Recommendations: Patient does appear to be confused. It is unclear what her baseline actually is. She also has occasional nystagmus with right lateral rectus muscle weakness. I recommend having an MRI of the brain which has been cleared with cardiology. If MRI of the brain is negative for any contributing etiology, then I highly doubt any central nervous system involvement. Continue Plavix 75 mg by mouth daily. EEG was done and results are pending. Her fasting lipid panel is within normal limits except for elevated triglycerides. Homocystine level is pending. Continue neurological checks. I will continue to follow with you. Further recommendations to follow. I performed an examination of the patient and discussed the management with the RESIDENT ADVISOR. I have reviewed the RESIDENT ADVISOR notes and agree with the findings and plan of care.
[2016-07-26 17:21] LABS: Glucose,Whole Blood 126 mg/dL (75-99)
--- NOTE | 2016-07-26 20:53 | MR ---
EXAMINATION TYPE: MR brain wo con DATE OF EXAM: 07/26/2016 7:40 PM COMPARISON: NONE HISTORY: Confusion, weakness, neuro changes Standard multiplanar, multisequence MRI departmental protocol Multiplanar, multisequence images of the brain were acquired. Diffusion weighted imaging was performe d. FINDINGS: There is cerebral cortical atrophy. On the T2 and FLAIR images there is increased signal in the periventricular white matter with areas that measure up to 1 cm. There is no midline shift. Ther e is no evidence of intracranial hemorrhage. There is thinning of the corpus callosum. Brainstem is i ntact. Sella turcica appears normal. There is no evidence of posterior fossa mass. IMPRESSION: Cerebral atrophy. White matter changes probably related to chronic small vessel ischemia. Demyelinati ng disease is in the differential diagnosis. No evidence of acute cortical infarct.
[2016-07-26 21:54] LABS: Glucose,Whole Blood 110 mg/dL (75-99)
[2016-07-26] MEDS: amLODIPine 5 MG TAB PO SCH (22:28)
[2016-07-26] MEDS: ATORVASTATIN 80 MG TAB PO SCH (22:28)
[2016-07-27] MEDS: HYDROcodone/APAP 5-325MG 1 EACH TAB PO PRN (01:17)
[2016-07-27] MEDS: SODIUM CHLORIDE 0.45% 1,000 ML IV SCH ×2 (04:34→15:17)
[2016-07-27 06:19] LABS: Glucose,Whole Blood 102 mg/dL (75-99)
[2016-07-27] MEDS: INSULIN LISPRO (humaLOG) 300 UNIT/3 ML VIAL SQ SCH ×4 (06:59→21:29)
[2016-07-27] MEDS: PANTOPRAZOLE 40 MG TABLET PO SCH (07:23)
[2016-07-27] MEDS: CARVEDILOL 12.5 MG TAB PO SCH (07:23)
[2016-07-27] MEDS: LOSARTAN 50 MG TAB PO SCH (09:03)
[2016-07-27] MEDS: HEPARIN SODIUM,PORCINE 5,000 UNIT/ML 1 ML VIAL SQ SCH ×2 (09:03→15:18)
[2016-07-27] MEDS: NYSTATIN 100,000 UNIT/ML SUSP 500,000 UNIT/5 ML CUP PO SCH ×4 (09:03→21:28)
[2016-07-27] MEDS: MEGESTROL 400 MG/10 ML CUP PO SCH (09:03)
[2016-07-27] MEDS: CLOPIDOGREL 75 MG TAB PO SCH (09:03)
[2016-07-27] MEDS: AMIODARONE 200 MG TAB PO SCH (09:03)
[2016-07-27] MEDS: POTASSIUM CHLORIDE ER 10 MEQ TAB.ER.PRT PO SCH (09:04)
[2016-07-27] MEDS: IPRATROPIUM-ALBUTEROL 3 ML NEB INHALATION SCH ×4 (09:12→19:48)
--- NOTE | 2016-07-27 10:28 | PN ---
DATE OF SERVICE: 07/26/2016 INTERVAL HISTORY: Ms. Hector is a 71-year-old female with known history of coronary artery bypass graft in May,, paroxysmal atrial fibrillation and also recent multiple admissions for dysphagia, came to the hospital with complaints of inability to take orally and dehydration. Patient had EGD that showed no obstruction or abnormality noted. Stroke workup including CT head, carotid duplex and ( ) CT angiogram of the neck and MRI of the brain showed no acute CVA, possibly psychogenic dysphagia has been suspected. Psychiatry has seen the patient. Recommended antidepressant at this time. Otherwise, the patient is still not eating. The patient, however, is able to take pills. No fever. No chills. No acute overnight issues. REVIEW OF SYSTEMS: Complete review of systems could not be obtained from the patient. Patient does have flat affect and poor historian. CURRENT MEDICATIONS: Reviewed. PHYSICAL EXAMINATION: A 71-year-old female lying in the bed. Awake, alert, oriented x2 to 3. Appears to be in no apparent distress. VITALS: Blood pressure 143/73, pulse is 70, respirations 18, temperature afebrile, pulse ox 100% on room air. HEENT: Atraumatic, normocephalic. Neck is supple. No JVD. CVS EXAM: S1, S2 heard. No murmurs, no gallop. LUNGS: Bilateral air entry is present. No wheezing. No crackles. Nonlabored breathing. ABDOMEN: Soft, nontender. Bowel sounds are present. INSIDE TESTER: Awake, alert oriented x2 to 3. Able to move all her extremities. EXTREMITIES: No edema. Pulses palpable bilaterally. No clubbing or cyanosis. PSYCHIATRIC: Cooperative. LABORATORY DATA: Reviewed. IMPRESSION: 1. Rt. nystagmus and right leg weakness. Ruled out acute cerebrovascular accident. MRI is negative for any acute infarct. It showed chronic small vessel ischemic changes. 2. Dysphagia, suspected probably psychogenic dysphagia. Status post EGD and possible PEG tube placement as per GI. 3. History of coronary artery disease, status post coronary artery bypass graft in May 2016. 4. Intermediate troponin leak. 5. Type 2 diabetes mellitus. 6. Hypertension. 7. Hyperlipidemia. 8. Acute on chronic kidney disease, stage III improved. 9. Hypernatremia on admission secondary to dehydration improved. 10. Paroxysmal atrial fibrillation, currently maintained in sinus rhythm. 11. Hypokalemia. 12. Hypomagnesemia. 13. Mild to moderate protein calorie malnutrition with albumin level 2.7. 14. Deep venous thrombosis prophylaxis. DISCUSSION AND PLAN: Will continue ( ). Continue with the current management. Stroke workup has been negative. Continue to follow. Will discuss with the family regarding possible PEG tube placement and the patient. GI is following this patient. Further recommendations based on the clinical course. Prognosis is guarded. MTDD
--- NOTE | 2016-07-27 10:28 | P.PN ---
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 EGD performed last Tuesday with no evidence of mechanical obstruction. Megace started however patient is still not eating but takes medications without difficulty. Prealbumin 16. Objective - Vital Signs Vital signs: Vital Signs Temp 97 F L 07/27/16 09:10 Pulse 62 07/27/16 09:10 Resp 18 07/27/16 09:10 BP 137/62 07/27/16 09:10 Pulse Ox 98 07/27/16 09:10 Intake & Output 07/26/16 07/27/16 07/27/16 18:59 06:59 18:59 Intake Total 390 150 Output Total 1000 1400 Balance -610 -1400 150 Weight 78.5 kg 83 kg Intake: Intake, IV Titration 150 150 Amount Sodium Chloride 0.45% 1, 150 150 000 ml @ 75 mls/hr IV . [id number] [facility] Rx#:[id number] Oral 240 Output: Urine 1000 1400 Other: Voiding Method Indwelling Catheter Indwelling Catheter Indwelling Catheter # Bowel Movements 1 - Exam General appearance: The patient is alert, oriented, in no acute distress. Flat affect. HET: Head is normocephalic and atraumatic. Pupils are equal and reactive. Oropharynx is clear without lesions. Neck: Supple without lymphadenopathy. Trachea midline. Heart: S1 S2. Regular rate and rhythm. Lungs: No crackles or wheezes are heard. Abdomen: Soft, nontender, nondistended with bowel sounds. No peritoneal signs. No palpable organomegaly or masses. Extremities: Normal skin color and turgor. No cyanosis, rash, ulceration, clubbing, or edema. Radial and pedal pulses are 2/4 bilaterally. Neurological: No focal deficits. Strength and sensation are grossly intact. - Labs CBC & Chem 7: 07/25/16 09:35 07/26/16 14:59 Labs: Abnormal Lab Results - Last 24 Hours (Table) 07/25/16 07/26/16 07/26/16 Range/Units 16:25 11:45 14:59 Creatinine 0.44 L (0.52-1.04) mg/dL POC Glucose (mg/dL) 130 H (75-99) mg/dL Homocysteine 43.24 H (4.00-14.00) umol/L 07/26/16 07/26/16 07/27/16 Range/Units 17:09 21:51 06:18 Creatinine (0.52-1.04) mg/dL POC Glucose (mg/dL) 126 H 110 H 102 H (75-99) mg/dL Homocysteine (4.00-14.00) umol/L Microbiology - Last 24 Hours (Table) 07/23/16 17:00 Urine Culture - Final Urine,Catheterized Lina glabrata Assessment and Plan (1) Dysphagia Narrative/Plan: 71-year-old female with persistent dysphagia 2 months duration with mid esophageal pressure after ingestion of foods without odynophagia status post CABG May 2016 with 20 kg weight loss. Status post EGD evaluation without evidence of mechanical obstruction. Etiology of dysphagia is unclear possible psychogenic. Megace instituted but no change in appetite at this point in time. Status: Acute Plan: 1. Appreciate neurology and psychiatric evaluations and recommendations. 2. Will discuss with attending proceeding with PEG tube placement in the next 1 -2 days if no improvement. 3. Will follow closely with you. Assessment and plan a care discussed with Dr. Kwon.
--- NOTE | 2016-07-27 10:32 | EEG ---
DATE OF SERVICE: 07/26/2016 REASON FOR TESTING: Altered mental status. AGE: 71Y DESCRIPTION OF THE PROCEDURE: This EEG was performed using a 21-channel digital electroencephalograph, following the international 10 - 20 system. DESCRIPTION OF THE RECORDING: From the beginning of the tracing, and with the patient's eyes closed, the background rhythm was mostly consisting of 8 Hz alpha frequency in the posterior occipital leads. No obvious asymmetry is seen. Occasional movement artifacts are noticed. Photic stimulation was performed with a minimal driving response seen. No pathological waves were elicited. Hyperventilation was not performed. The patient remains awake throughout the tracing. No epileptiform discharges were seen. Her EKG lead showed a regular rate and rhythm. INTERPRETATION: This awake EEG can be considered within normal limits. There was no asymmetry seen. No epileptiform discharges were noticed. The absence of epileptiform discharges does not rule out the diagnosis of epilepsy, therefore, clinical correlation is recommended.
[2016-07-27 11:44] LABS: Glucose,Whole Blood 136 mg/dL (75-99)
[2016-07-27 16:53] LABS: Appearance,Urine Turbid (Clear); Bacteria,Urine Many /hpf; Bilirubin,Urine Negative (Negative); Glucose,Urine (UA) Negative (Negative); Ketones,Urine Negative (Negative); Leukocyte Esterase,Urine Large (Negative); Nitrite,Urine Negative (Negative); PH, Urine 5.5 (5.0-8.0); Particle Count 116915; Protein,Urine 3+ (Negative); RBC,Urine >182 /hpf (0-5); UA Billing (MACRO vs. MICRO) MICRO; WBC,Urine >182 /hpf (0-5)
[2016-07-27 17:12] LABS: Glucose,Whole Blood 108 mg/dL (75-99)
[2016-07-27 20:56] LABS: Glucose,Whole Blood 113 mg/dL (75-99)
[2016-07-27] MEDS: ATORVASTATIN 80 MG TAB PO SCH (21:28)
[2016-07-27] MEDS: amLODIPine 5 MG TAB PO SCH (21:28)
--- NOTE | 2016-07-27 22:50 | P.PN ---
Subjective Principal diagnosis: altered mental status Patient is a 71-year-old female being followed by neurology for altered mental status and neurological changes. Patient has a history of atrial fibrillation and coronary artery disease. She has a history of coronary artery bypass graft in May 2016. Patient has been experiencing physical decline due to poor oral intake, dehydration and general debility. Patient has been evaluated by GI with an extensive diagnostic workup which identified no abnormality to support her symptoms. Patient has also undergone psychological testing as well. Psychological testing indicated a suspicion of psychogenic dysphagia. Patient does have a history of breast cancer. Patient also had CT and CT angiogram which were both negative for any acute process. MRI of the brain was completed today. MRI noted cerebral atrophy, white matter changes with possible chronic small vessel ischemia. Demyelination disorder could not be ruled out. No evidence of acute infarct was found. On contact today, the patient was seated in a chair at the bedside in no acute distress. Objective - Vital Signs Vital signs: Vital Signs Temp 97.5 F L 07/27/16 15:45 Pulse 60 07/27/16 21:31 Resp 16 07/27/16 21:31 BP 134/82 07/27/16 21:31 Pulse Ox 98 07/27/16 21:31 Intake & Output 07/27/16 07/27/16 07/28/16 06:59 18:59 06:59 Intake Total 150 Output Total 1400 Balance -1400 150 Weight 83 kg Intake: Intake, IV Titration 150 Amount Sodium Chloride 0.45% 1, 150 000 ml @ 75 mls/hr IV . [id number] [facility] Rx#:[id number] Output: Urine 1400 Other: Voiding Method Indwelling Catheter Indwelling Catheter - Constitutional General appearance: Present: disheveled, no acute distress - EENT EENT Comment(s): normocephalic atraumatic, no facial asymmetry is seen. - Neck Details: Supple, no massses. - Respiratory Details: No increased work of breathing - Cardiovascular Details: Regular rate and rhythm - Gastrointestinal Gastrointestinal Comment(s): Non tender, non distended - Integumentary Integumentary: Present: normal. Absent: flushed, jaundiced, pale - Neurologic Neurologic Comment(s): the patient is awake, alert and oriented 1. Speech and language are normal. Facial asymmetry is seen in cranial nerve testing. Patient does have occasional nystagmus with decreased lateral movement in the right eye. Strength is full in all 4 extremities. Sensory exam to light touch is normal in all 4 extremities. No tremors or seizure-like activity is noted on physical exam. - Musculoskeletal Musculoskeletal: Present: strength equal bilaterally - Psychiatric Psychiatric Comment(s): alert and oriented 1 - Labs CBC & Chem 7: 07/25/16 09:35 07/26/16 14:59 Labs: Abnormal Lab Results - Last 24 Hours (Table) 07/27/16 07/27/16 07/27/16 Range/Units 06:18 11:41 16:37 POC Glucose (mg/dL) 102 H 136 H (75-99) mg/dL Urine Appearance Turbid H (Clear) Urine Protein 3+ H (Negative) Urine Blood Large H (Negative) Ur Leukocyte Esterase Large H (Negative) Urine RBC >182 H (0-5) /hpf Urine WBC >182 H (0-5) /hpf Urine WBC Clumps Many H (None) /hpf Urine Bacteria Many H (None) /hpf Urine Yeast (Budding) Many H (None) /hpf 07/27/16 07/27/16 Range/Units 17:08 20:55 POC Glucose (mg/dL) 108 H 113 H (75-99) mg/dL Urine Appearance (Clear) Urine Protein (Negative) Urine Blood (Negative) Ur Leukocyte Esterase (Negative) Urine RBC (0-5) /hpf Urine WBC (0-5) /hpf Urine WBC Clumps (None) /hpf Urine Bacteria (None) /hpf Urine Yeast (Budding) (None) /hpf Microbiology - Last 24 Hours (Table) 07/23/16 17:00 Urine Culture - Final Urine,Catheterized Lina glabrata Assessment and Plan (1) Dysphagia Status: Acute (2) Altered mental status Status: Acute Plan: Impression: 1. White matter changes 2. Cerebral atrophy/chronic small vessel ischemia 3. Breast cancer 4. Type 2 diabetes 5. Atrial fibrillation 6. Altered mental status Patient does appear to be confused. At this time is unclear what her normal underlying baseline is on a routine basis. MRI of the brain noted cerebral atrophy with possible chronic small vessel ischemia. Demyelination cannot be ruled out. No acute condition noted. The patient will need further outpatient workup for demyelinating disorder which may include a lumbar puncture. EEG was normal. Patient's serum homocystine level was elevated. I started the patient on Foltx. Patient will continue Plavix, Lipitor and Foltyx per current dosing regimen at discharge. From a neurological standpoint, the patient can be cleared for discharge. patient will need to contact our office within 48 hours of discharge for a follow-up appointment within 10 business days. If any further questions or need any further clarifications, please do not hesitate to contact our office. Status: Cleared for discharge from a neurological standpoint I discussed the patient's pertinent medical information with Dr. Murphy. He agrees with the plan of care as implemented.
[2016-07-28] MEDS: HEPARIN SODIUM,PORCINE 5,000 UNIT/ML 1 ML VIAL SQ SCH ×4 (01:08→23:57)
[2016-07-28] MEDS: SODIUM CHLORIDE 0.45% 1,000 ML IV SCH ×2 (06:53→22:27)
[2016-07-28 07:44] LABS: Glucose,Whole Blood 113 mg/dL (75-99)
[2016-07-28] MEDS: INSULIN LISPRO (humaLOG) 300 UNIT/3 ML VIAL SQ SCH ×4 (08:04→22:25)
[2016-07-28] MEDS: CLOPIDOGREL 75 MG TAB PO SCH (08:20)
[2016-07-28] MEDS: CARVEDILOL 12.5 MG TAB PO SCH (08:20)
[2016-07-28] MEDS: NYSTATIN 100,000 UNIT/ML SUSP 500,000 UNIT/5 ML CUP PO SCH ×4 (08:21→22:24)
[2016-07-28] MEDS: LOSARTAN 50 MG TAB PO SCH (08:21)
[2016-07-28] MEDS: PANTOPRAZOLE 40 MG TABLET PO SCH (08:21)
[2016-07-28] MEDS: AMIODARONE 200 MG TAB PO SCH (08:22)
[2016-07-28] MEDS: POTASSIUM CHLORIDE ER 10 MEQ TAB.ER.PRT PO SCH (08:22)
[2016-07-28] MEDS: ONDANSETRON 4 MG/2 ML VIAL IVP PRN (08:22)
[2016-07-28] MEDS: MEGESTROL 400 MG/10 ML CUP PO SCH (08:22)
--- NOTE | 2016-07-28 08:48 | P.PN ---
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 EGD performed last Tuesday with no evidence of mechanical obstruction. Megace started however patient is still not eating but takes medications without difficulty. Prealbumin 16. Objective - Vital Signs Vital signs: Vital Signs Temp 95.3 F L 07/28/16 07:00 Pulse 68 07/28/16 07:00 Resp 19 07/28/16 07:00 BP 137/78 07/28/16 07:00 Pulse Ox 99 07/28/16 07:00 Intake & Output 07/27/16 07/28/16 07/28/16 18:59 06:59 18:59 Intake Total 150 Output Total 400 Balance 150 -400 Intake: Intake, IV Titration 150 Amount Sodium Chloride 0.45% 1, 150 000 ml @ 75 mls/hr IV . [id number] [facility] Rx#:[id number] Output: Urine 400 Other: Voiding Method Indwelling Catheter Indwelling Catheter # Voids 0 # Bowel Movements 4 - Exam General appearance: The patient is awake. Flat affect. HET: Head is normocephalic and atraumatic. Pupils are equal and reactive. Oropharynx is clear without lesions. Neck: Supple without lymphadenopathy. Trachea midline. Heart: S1 S2. Regular rate and rhythm. Lungs: No crackles or wheezes are heard. Abdomen: Soft, nontender, nondistended with bowel sounds. No peritoneal signs. No palpable organomegaly or masses. Extremities: Normal skin color and turgor. No cyanosis, rash, ulceration, clubbing, or edema. Radial and pedal pulses are 2/4 bilaterally. Neurological: No focal deficits. Strength and sensation are grossly intact. - Labs CBC & Chem 7: 07/25/16 09:35 07/26/16 14:59 Labs: Abnormal Lab Results - Last 24 Hours (Table) 07/27/16 07/27/16 07/27/16 Range/Units 11:41 16:37 17:08 POC Glucose (mg/dL) 136 H 108 H (75-99) mg/dL Urine Appearance Turbid H (Clear) Urine Protein 3+ H (Negative) Urine Blood Large H (Negative) Ur Leukocyte Esterase Large H (Negative) Urine RBC >182 H (0-5) /hpf Urine WBC >182 H (0-5) /hpf Urine WBC Clumps Many H (None) /hpf Urine Bacteria Many H (None) /hpf Urine Yeast (Budding) Many H (None) /hpf 07/27/16 07/28/16 Range/Units 20:55 07:29 POC Glucose (mg/dL) 113 H 113 H (75-99) mg/dL Urine Appearance (Clear) Urine Protein (Negative) Urine Blood (Negative) Ur Leukocyte Esterase (Negative) Urine RBC (0-5) /hpf Urine WBC (0-5) /hpf Urine WBC Clumps (None) /hpf Urine Bacteria (None) /hpf Urine Yeast (Budding) (None) /hpf Microbiology - Last 24 Hours (Table) 07/27/16 16:37 Urine Culture - Preliminary Urine,Catheterized Assessment and Plan (1) Dysphagia Narrative/Plan: 71-year-old female with persistent dysphagia 2 months duration with mid esophageal pressure after ingestion of foods without odynophagia status post CABG May 2016 with 20 kg weight loss. Status post EGD evaluation without evidence of mechanical obstruction. Etiology of dysphagia is unclear possible psychogenic. Megace instituted but no change in appetite at this point in time. Status: Acute Plan: 1. Appreciate neurology and psychiatric evaluations and recommendations. 2. Will discuss with attending proceeding with PEG tube placement possibly tomorrow. NPO after midnight. 3. Will follow closely with you. Assessment and plan a care discussed with Dr. Kwon.
[2016-07-28 09:04] LABS: Anion Gap 16 mmol/L; Blood Urea Nitrogen 14 mg/dL (7-17); Calcium 7.2 mg/dL (8.4-10.2); Carbon Dioxide 19 mmol/L (22-30); Chloride 101 mmol/L (98-107); Glucose 114 mg/dL (74-99); Non-African American GFR(MDRD) >60 (>60 ml/min/1.73 sqM); Sodium 136 mmol/L (137-145)
[2016-07-28] MEDS: IPRATROPIUM-ALBUTEROL 3 ML NEB INHALATION SCH ×4 (09:13→19:56)
[2016-07-28 09:28] LABS: Potassium 2.5 mmol/L (3.5-5.1)
[2016-07-28 10:03] LABS: Basophils # (A) 0.1 k/uL (0-0.2); Basophils % (A) 1 %; CH 31.3; CHCM 34.9; Eosinophils % (A) 1 %; HCT 31.7 % (34.0-46.0); HDW 3.38; HGB 10.6 gm/dL (11.4-16.0); Luc # (Auto) 0.02; Luc % (Auto) 1; Lymphocytes # (A) 0.4 k/uL (1.0-4.8); Lymphocytes % (A) 8 %; MCH 30.1 pg (25.0-35.0); MCHC 33.5 g/dL (31.0-37.0); MCV 89.9 fL (80.0-100.0); Monocytes # (A) 0.2 k/uL (0-1.0); Monocytes % (A) 3 %; Neutrophils # (A) 4.1 k/uL (1.3-7.7); Neutrophils % (A) 87 %; RBC 3.53 m/uL (3.80-5.40); RDW 14.2 % (11.5-15.5); WBC 4.7 k/uL (3.8-10.6); WBC (Perox) 4.96
[2016-07-28] MEDS ORDERED: POTASSIUM CHLORIDE ORAL LIQUID 40 MEQ/30 ML CUP PO ONE (10:11)
--- NOTE | 2016-07-28 10:47 | PN ---
INTERVAL HISTORY: Ms. Hector is a 71-year-old female with known history of recent coronary artery bypass graft in May 2016, admitted to hospital with dysphagia. The patient was seen by GI and EGD was done. Patient was also evaluated by neurology for possible stroke. Work-up including CT of the head, carotid duplex and CT angio of the neck were done which were negative. MRI of the brain showed no acute CVA, possible demyelination also suspected. Otherwise, the patient was cleared by neurology at this time. Patient is still not able to eat. Seen by psychiatry as well. No antidepressants at this time. Otherwise, patient initially placed on PEG tube. GI is following this patient. Currently patient seems to be confused. No change in mental status compared to yesterday. Denied any chest pain or shortness of breath. No acute overnight issues. Complete review of systems could not be performed on the patient. Current medications include: 1. Tylenol 5/325. 2. DuoNeb. 3. Cordarone. 4. Norvasc. 5. Lipitor. 6. Dulcolax. 7. Coreg. 8. Plavix. 9. Folic acid. 10. Heparin. 11. Hydralazine p.r.n. 12. Losartan. 13. Megace. 14. Nitrostat. 15. Nystatin powder. 16. Zofran. 17. Protonix. 18. K-Dur. 19. Senokot. 20. Normal saline at 75 mL/hour. PHYSICAL EXAMINATION: A 71-year-old female, lying in the bed, awake, alert, confused, no apparent distress VITALS: Blood pressure is 134/82, pulse is 60, respirations 16, temperature afebrile, pulse ox is 98% on room air. HEENT: Atraumatic, normocephalic. NECK: Supple. No JVD. CVS: S1, S2 heard. No murmurs or gallop. LUNGS: Bilateral air entry is present. No wheezing. No crackles. Nonlabored breathing. ABDOMEN: Soft, nontender, bowel sounds present. PROJECT SAFETY MANAGER: Awake, alert, oriented x2 to 3. Appears to be very confused. No focal neurologic deficits. Cranial nerves grossly intact. EXTREMITIES: No edema. Pulses palpable bilaterally. No clubbing or cyanosis. PSYCHIATRIC: Cooperative. LABORATORY DATA: Reviewed. UA showed ( ), 3+ protein, large blood, large leukocyte esterase and greater than 182 RBC and greater than 182 WBCs and WBC clumps. IMPRESSION: 1. Dysphagia. The patient had work-up done including EEG and neurologic workup has been negative. 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 Patient required PEG tube placement. GI is following this patient. 2. Right eye nystagmus with right ductus muscle weakness. Rule out acute cerebrovascular accident. MRI is negative for any acute infarct. Shows chronic small vessel ischemic changes. 3. Possible acute urinary tract infection, kathrin in the urine. 4. History of coronary artery disease status post coronary artery bypass graft in May 2016. 5. Type 2 diabetes mellitus. 6. Intermittent troponin leak, unlikely acute coronary syndrome. 7. Hypertension. 8. Hyperlipidemia. 9. Acute on chronic kidney disease stage 3, improved. 10. Hyponatremia secondary to dehydration. 11. Paroxysmal atrial fibrillation, currently the patient is in sinus rhythm. 12. Hypokalemia, replaced. 13. Mild to moderate protein calorie malnutrition, albumin level 2.7. 14. DVT prophylaxis. DISCUSSION AND PLAN: We will continue with the IV fluids. The patient is not tolerating p.o. diet. Workup including EGD and stroke work-up has been essentially negative. The patient does have chronic small bilateral ischemic changes. We will continue to replace electrolytes. Also started on ceftriaxone for possible urinary tract infection. Will continue to follow closely. Prognosis is poor. Further recommendations based on clinical course.
[2016-07-28] MEDS: POTASSIUM CHLORIDE 20 MEQ, LIDOCAINE 2% INJ 20 MG in SODIUM CHLORIDE 0.9% 100 ML IVPB SCH ×3 (11:15→17:31)
[2016-07-28] MEDS: CYANOCOBALAMIN-FA-PYRIDOXINE 1 EACH TAB PO SCH (11:16)
[2016-07-28 12:47] LABS: Glucose,Whole Blood 136 mg/dL (75-99)
[2016-07-28] MEDS: MAGNESIUM SULFATE-D5W PMX 1 GM in DEXTROSE/WATER 1 100ML.BAG IVPB SCH ×3 (13:53→16:21)
--- NOTE | 2016-07-28 14:10 | CDI ---
In responding to this query, please exercise your independent professional judgment. The [facility] Coding Staff and Clinical Documentation Specialists appreciate your assistance in clarifying documentation, maintaining compliance with coding guidelines, accurately documenting patients condition and capturing severity of illness. The fact that a question is asked does not imply that any particular answer is desired or expected. Communication forms are a method of clarifying documentation and are not made part of the Legal Health Record. Thank you in advance for your clarification. Last Revision, September 2015 [facility] [address] [place] [address] Documentation Clarification Form Date: 07/28/2016 1:45:00 PM From: Linda Leigh Admit Date: 07/22/2016 3:01:00 PM Patient Name: Iliana Hector Visit Number: [id number] Dr. Tae Cordero 'Patient became more confused' was documented in the progress note on 07/26 for date of service 07/24. On 07/27 you documented 'currently patient seems to be confused'. Patient history/risk factors: Dysphagia Diabetes Mellitus type 2 Dehydration Clinical Indicators: Labs: UA on 07/27 - turbid, 3+ protein, large blood, large leuks, wbc >182 Urine Culture from 07/23 reports Lina Glabrata Urine Culture collected on 07/[address] brain: negative Possible UTI documented on 07/27 Stroke workup negative Treatment: IV Rocephin IV fluids Consult: Neurology In your professional opinion, please clarify the etiology of the altered mental status, if known. Delirium (specify cause): Dementia (if know, specify Type and if with/without Behavioral Disturbance) Encephalopathy (specify Type and Underlying Medical Illness) Other condition (please specify) Unable to determine Please document in your progress notes and discharge summary in order to capture severity of illness and risk of mortality. Include clinical findings that support your diagnosis. FYI: Press F11 to launch patient chart. Place X here if this finding has no clinical significance, is not applicable or if you are not able to provide any additional documentation. MTDD
[2016-07-28 17:06] LABS: Magnesium 1.4 mg/dL (1.6-2.3); Potassium 3.5 mmol/L (3.5-5.1)
[2016-07-28 17:21] LABS: Glucose,Whole Blood 176 mg/dL (75-99)
--- NOTE | 2016-07-28 18:30 | P.PN ---
Subjective 71-year-old female well-known to our service was admitted multiple times in the hospital with dehydration. Patient was admitted at least 2-3 times at this hospital and twice at [facility] for similar complaints. Patient underwent multiple studies in regards to dysphagia which is her underlying reason for dehydration. Patient has had no penetration noted on modified barium swallows. The speech therapist shira on the prior admission and Dr. 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 Patient was evaluated by a psychiatrist at that time as well. Patient was started on SSRI was informed that the diagnosis and speech therapist discussed intervention. Patient however is readmitted to the hospital with hyponatremia which appears to be hypovolemic and states that she is having multiple episodes of emesis upon discharge. Patient will also noted to have a troponin leak on admission however patient had a CABG within the last 10 weeks. Patient apparently also noticed that she has some difficulty in breathing and hence went to [facility]. Patient was thereafter transferred to our hospital due to acute kidney injury and episodes of nausea and vomiting. 07/28/2016 Patient has had a repeat workup of dysphagia again. It appears to be psychogenic in nature. Patient does have food in front of heard during my examination states that she is scared to eat the food at this time. Denies having any chest pain, difficulty breathing, nausea, vomiting at this time. Objective - Vital Signs Vital signs: Vital Signs Temp 96.3 F L 07/28/16 15:00 Pulse 65 07/28/16 15:00 Resp 19 07/28/16 15:00 BP 115/68 07/28/16 15:00 Pulse Ox 98 07/28/16 15:00 Intake & Output 07/27/16 07/28/16 07/28/16 18:59 06:59 18:59 Intake Total 150 Output Total 400 210 Balance 150 -400 -210 Weight 83 kg Intake: Intake, IV Titration 150 Amount Sodium Chloride 0.45% 1, 150 000 ml @ 75 mls/hr IV . [id number] [facility]A Rx#:[id number] Output: Urine 400 210 Other: Voiding Method Indwelling Catheter Indwelling Catheter Indwelling Catheter # Voids 0 # Bowel Movements 4 2 - Exam Physical exam Gen. appearance oriented 3 in no distress Neck is supple no JVD Lungs good air entry clear to auscultation no rhonchi or wheezing Heart S1-S2 heard regular rate and rhythm no murmurs appreciated Abdomen is soft nontender no organomegaly bowel sounds are intact Neurologically cranial nerves II-12 grossly intact no focal motor or sensory deficits noted Skin no abnormalities appreciated - Labs CBC & Chem 7: 07/28/16 08:23 07/28/16 16:08 Labs: Abnormal Lab Results - Last 24 Hours (Table) 07/27/16 07/28/16 07/28/16 Range/Units 20:55 07:29 08:23 RBC 3.53 L (3.80-5.40) m/uL Hgb 10.6 L (11.4-16.0) gm/dL Hct 31.7 L (34.0-46.0) % Lymphocytes # 0.4 L (1.0-4.8) k/uL Sodium (137-145) mmol/L Potassium (3.5-5.1) mmol/L Carbon Dioxide (22-30) mmol/L Glucose (74-99) mg/dL POC Glucose (mg/dL) 113 H 113 H (75-99) mg/dL Calcium (8.4-10.2) mg/dL Magnesium (1.6-2.3) mg/dL 07/28/16 07/28/16 07/28/16 Range/Units 08:23 08:23 12:37 RBC (3.80-5.40) m/uL Hgb (11.4-16.0) gm/dL Hct (34.0-46.0) % Lymphocytes # (1.0-4.8) k/uL Sodium 136 L (137-145) mmol/L Potassium 2.5 L* (3.5-5.1) mmol/L Carbon Dioxide 19 L (22-30) mmol/L Glucose 114 H (74-99) mg/dL POC Glucose (mg/dL) 136 H (75-99) mg/dL Calcium 7.2 L (8.4-10.2) mg/dL Magnesium 1.0 L* (1.6-2.3) mg/dL 07/28/16 07/28/16 Range/Units 16:08 16:52 RBC (3.80-5.40) m/uL Hgb (11.4-16.0) gm/dL Hct (34.0-46.0) % Lymphocytes # (1.0-4.8) k/uL Sodium 134 L (137-145) mmol/L Potassium (3.5-5.1) mmol/L Carbon Dioxide 18 L (22-30) mmol/L Glucose (74-99) mg/dL POC Glucose (mg/dL) 176 H (75-99) mg/dL Calcium (8.4-10.2) mg/dL Magnesium 1.4 L (1.6-2.3) mg/dL Microbiology - Last 24 Hours (Table) 07/27/16 16:37 Urine Culture - Preliminary Urine,Catheterized Assessment and Plan Plan: #1 intractable nausea vomiting secondary to psychogenic dysphagia. Apparently this is sometimes seen postcardiac surgery This diagnosis was made after multiple barium swallows. Multiple evaluations by speech therapy at the [facility] and [facility]. #2 indeterminant troponin leak #3 history of CAD status post CABG #4 diabetes mellitus type 2 #5 history of hypertension #6 dyslipidemia #7 acute on CK D stage III #8 paroxysmal atrial fibrillation #9 hypokalemia #10 hypernatremia likely secondary to dehydration Plan Patient is undergoing a PEG tube placement tomorrow. This was discussed with the GI nurse practitioner. Once the PEG tube is placed patient's likely be discharged probably to [facility] initially and thereafter home with home care.
[2016-07-28 20:54] LABS: Glucose,Whole Blood 171 mg/dL (75-99)
[2016-07-28] MEDS: ATORVASTATIN 80 MG TAB PO SCH (22:24)
[2016-07-28] MEDS: amLODIPine 5 MG TAB PO SCH (22:24)
[2016-07-29] MEDS: IPRATROPIUM-ALBUTEROL 3 ML NEB INHALATION SCH ×4 (07:31→19:26)
[2016-07-29 07:36] LABS: Glucose,Whole Blood 163 mg/dL (75-99)
[2016-07-29] MEDS: CARVEDILOL 12.5 MG TAB PO SCH (08:25)
[2016-07-29] MEDS: INSULIN LISPRO (humaLOG) 300 UNIT/3 ML VIAL SQ SCH ×4 (08:25→21:56)
[2016-07-29] MEDS: HEPARIN SODIUM,PORCINE 5,000 UNIT/ML 1 ML VIAL SQ SCH ×3 (08:26→23:09)
[2016-07-29] MEDS: SODIUM CHLORIDE 0.45% 1,000 ML IV SCH ×2 (08:26→20:35)
[2016-07-29] MEDS: PANTOPRAZOLE 40 MG TABLET PO SCH (08:26)
[2016-07-29] MEDS: LOSARTAN 50 MG TAB PO SCH (08:27)
[2016-07-29] MEDS: AMIODARONE 200 MG TAB PO SCH (08:27)
[2016-07-29] MEDS: MEGESTROL 400 MG/10 ML CUP PO SCH (08:27)
[2016-07-29] MEDS: NYSTATIN 100,000 UNIT/ML SUSP 500,000 UNIT/5 ML CUP PO SCH ×4 (08:27→23:09)
[2016-07-29] MEDS: POTASSIUM CHLORIDE ER 10 MEQ TAB.ER.PRT PO SCH (08:29)
[2016-07-29 09:30] LABS: Basophils % (A) 0 %; CH 31.2; CHCM 34.3; Eosinophils # (A) 0.1 k/uL (0-0.7); Eosinophils % (A) 1 %; HCT 26.4 % (34.0-46.0); HDW 3.35; Luc # (Auto) 0.05; Luc % (Auto) 1; Lymphocytes # (A) 0.5 k/uL (1.0-4.8); Lymphocytes % (A) 12 %; MCH 31.2 pg (25.0-35.0); MCHC 34.4 g/dL (31.0-37.0); MCV 90.9 fL (80.0-100.0); Mean Platelet Volume 8.7; Monocytes # (A) 0.1 k/uL (0-1.0); Monocytes % (A) 3 %; Neutrophils # (A) 3.4 k/uL (1.3-7.7); Neutrophils % (A) 82 %; RDW 14.3 % (11.5-15.5); WBC 4.1 k/uL (3.8-10.6); WBC (Perox) 4.23
[2016-07-29 09:43] LABS: HGB 9.1 gm/dL (11.4-16.0)
[2016-07-29 09:52] LABS: ALT 33 U/L (9-52); AST 15 U/L (14-36); Alkaline Phosphatase 52 U/L (38-126); Anion Gap 9 mmol/L; Blood Urea Nitrogen 15 mg/dL (7-17); Calcium 7.1 mg/dL (8.4-10.2); Carbon Dioxide 19 mmol/L (22-30); Chloride 107 mmol/L (98-107); Glucose 150 mg/dL (74-99); Magnesium 1.6 mg/dL (1.6-2.3); Non-African American GFR(MDRD) >60 (>60 ml/min/1.73 sqM); Potassium 3.2 mmol/L (3.5-5.1); Sodium 135 mmol/L (137-145); Total Bilirubin 0.5 mg/dL (0.2-1.3); Total Protein 4.3 g/dL (6.3-8.2)
[2016-07-29] MEDS: CYANOCOBALAMIN-FA-PYRIDOXINE 1 EACH TAB PO SCH (11:34)
[2016-07-29 12:33] LABS: Glucose,Whole Blood 145 mg/dL (75-99)
[2016-07-29] MEDS ORDERED: ceFAZolin 2 GM in SODIUM CHLORIDE 0.9% 100 ML IVPB ONE (13:00)
[2016-07-29] MEDS: CLOPIDOGREL 75 MG TAB PO SCH (16:30)
[2016-07-29 17:44] LABS: Glucose,Whole Blood 139 mg/dL (75-99)
--- NOTE | 2016-07-29 19:40 | P.PN ---
Subjective 71-year-old female well-known to our service was admitted multiple times in the hospital with dehydration. Patient was admitted at least 2-3 times at this hospital and twice at [facility] for similar complaints. Patient underwent multiple studies in regards to dysphagia which is her underlying reason for dehydration. Patient has had no penetration noted on modified barium swallows. The speech therapist shira on the prior admission and Dr. 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 Patient was evaluated by a psychiatrist at that time as well. Patient was started on SSRI was informed that the diagnosis and speech therapist discussed intervention. Patient however is readmitted to the hospital with hyponatremia which appears to be hypovolemic and states that she is having multiple episodes of emesis upon discharge. Patient will also noted to have a troponin leak on admission however patient had a CABG within the last 10 weeks. Patient apparently also noticed that she has some difficulty in breathing and hence went to [facility]. Patient was thereafter transferred to our hospital due to acute kidney injury and episodes of nausea and vomiting. 07/28/2016 Patient has had a repeat workup of dysphagia again. It appears to be psychogenic in nature. Patient does have food in front of heard during my examination states that she is scared to eat the food at this time. Denies having any chest pain, difficulty breathing, nausea, vomiting at this time. 07/29/16 Was able to ambulate. No new overnight events. Undergoing PEG tube placement today. Objective - Vital Signs Vital signs: Vital Signs Temp 97.6 F 07/29/16 14:27 Pulse 68 07/29/16 15:34 Resp 16 07/29/16 16:00 BP 104/66 07/29/16 14:27 Pulse Ox 98 07/29/16 14:27 Intake & Output 07/29/16 07/29/16 07/30/16 06:59 18:59 06:59 Output Total 425 70 Balance -425 -70 Output: Urine 425 70 Other: Voiding Method Indwelling Catheter Indwelling Catheter # Bowel Movements 3 - Exam Physical exam Gen. appearance oriented 3 in no distress Neck is supple no JVD Lungs good air entry clear to auscultation no rhonchi or wheezing Heart S1-S2 heard regular rate and rhythm no murmurs appreciated Abdomen is soft nontender no organomegaly bowel sounds are intact Neurologically cranial nerves II-12 grossly intact no focal motor or sensory deficits noted Skin no abnormalities appreciated - Labs CBC & Chem 7: 07/29/16 09:10 07/29/16 09:10 Labs: Abnormal Lab Results - Last 24 Hours (Table) 07/28/16 07/29/16 07/29/16 Range/Units 20:52 07:27 09:10 RBC 2.90 L (3.80-5.40) m/uL Hgb 9.1 L D (11.4-16.0) gm/dL Hct 26.4 L (34.0-46.0) % Lymphocytes # 0.5 L (1.0-4.8) k/uL Sodium (137-145) mmol/L Potassium (3.5-5.1) mmol/L Carbon Dioxide (22-30) mmol/L Glucose (74-99) mg/dL POC Glucose (mg/dL) 171 H 163 H (75-99) mg/dL Calcium (8.4-10.2) mg/dL Total Protein (6.3-8.2) g/dL Albumin (3.5-5.0) g/dL 07/29/16 07/29/16 07/29/16 Range/Units 09:10 12:13 17:24 RBC (3.80-5.40) m/uL Hgb (11.4-16.0) gm/dL Hct (34.0-46.0) % Lymphocytes # (1.0-4.8) k/uL Sodium 135 L (137-145) mmol/L Potassium 3.2 L (3.5-5.1) mmol/L Carbon Dioxide 19 L (22-30) mmol/L Glucose 150 H (74-99) mg/dL POC Glucose (mg/dL) 145 H 139 H (75-99) mg/dL Calcium 7.1 L (8.4-10.2) mg/dL Total Protein 4.3 L (6.3-8.2) g/dL Albumin 2.2 L (3.5-5.0) g/dL Microbiology - Last 24 Hours (Table) 07/27/16 16:37 Urine Culture - Preliminary Urine,Catheterized Gram Neg Bacilli Assessment and Plan Plan: #1 intractable nausea vomiting secondary to psychogenic dysphagia. PEG tube placement today.. #2 indeterminant troponin leak #3 history of CAD status post CABG #4 diabetes mellitus type 2 #5 history of hypertension #6 dyslipidemia #7 acute on CK D stage III #8 paroxysmal atrial fibrillation #9 hypokalemia #10 hypernatremia likely secondary to dehydration 11. Acute metabolic encephalopathy. Plan Will ensue feeding once cleared by GI MOniter clinical status PT/OT WIll need placement for a few days.
[2016-07-29 21:36] LABS: Glucose,Whole Blood 182 mg/dL (75-99)
[2016-07-29] MEDS: ATORVASTATIN 80 MG TAB PO SCH (21:54)
[2016-07-29] MEDS: amLODIPine 5 MG TAB PO SCH (21:54)
[2016-07-29] MEDS: HYDROcodone/APAP 5-325MG 1 EACH TAB PO PRN (23:22)
[2016-07-30] MEDS: IPRATROPIUM-ALBUTEROL 3 ML NEB INHALATION SCH ×4 (06:59→19:17)
[2016-07-30 07:09] LABS: Glucose,Whole Blood 116 mg/dL (75-99)
[2016-07-30] MEDS: PANTOPRAZOLE 40 MG TABLET PO SCH (08:00)
[2016-07-30] MEDS: HEPARIN SODIUM,PORCINE 5,000 UNIT/ML 1 ML VIAL SQ SCH ×3 (08:00→23:09)
[2016-07-30] MEDS: INSULIN LISPRO (humaLOG) 300 UNIT/3 ML VIAL SQ SCH ×4 (08:00→20:57)
[2016-07-30] MEDS: NYSTATIN 100,000 UNIT/ML SUSP 500,000 UNIT/5 ML CUP PO SCH ×4 (08:01→21:05)
[2016-07-30] MEDS: MEGESTROL 400 MG/10 ML CUP PO SCH (08:01)
[2016-07-30] MEDS: CLOPIDOGREL 75 MG TAB PO SCH (08:01)
[2016-07-30] MEDS: POTASSIUM CHLORIDE ER 10 MEQ TAB.ER.PRT PO SCH (08:01)
[2016-07-30] MEDS: CITALOPRAM HYDROBROMIDE 20 MG TAB PO SCH (08:01)
--- NOTE | 2016-07-30 09:34 | P.PN ---
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 EGD performed last Tuesday with no evidence of mechanical obstruction. Megace started however patient is still not eating but takes medications without difficulty. PEG tube scheduled yesterday but canceled secondary to loss of IV access. Scheduled for PICC line placement today followed by PEG insertion this afternoon. Objective - Vital Signs Vital signs: Vital Signs Temp 96.1 F L 07/30/16 07:00 Pulse 66 07/30/16 07:07 Resp 17 07/30/16 07:00 BP 134/65 07/30/16 07:00 Pulse Ox 99 07/30/16 07:00 Intake & Output 07/29/16 07/30/16 07/30/16 18:59 06:59 18:59 Output Total 70 800 Balance -70 -800 Output: Urine 70 800 Other: Voiding Method Indwelling Catheter Indwelling Catheter - Exam General appearance: The patient is awake. Flat affect. HET: Head is normocephalic and atraumatic. Pupils are equal and reactive. Oropharynx is clear without lesions. Neck: Supple without lymphadenopathy. Trachea midline. Heart: S1 S2. Regular rate and rhythm. Lungs: No crackles or wheezes are heard. Abdomen: Soft, nontender, nondistended with bowel sounds. No peritoneal signs. No palpable organomegaly or masses. Extremities: Normal skin color and turgor. No cyanosis, rash, ulceration, clubbing, or edema. Radial and pedal pulses are 2/4 bilaterally. Neurological: No focal deficits. Strength and sensation are grossly intact. - Labs CBC & Chem 7: 07/29/16 09:10 07/29/16 09:10 Labs: Abnormal Lab Results - Last 24 Hours (Table) 07/29/16 07/29/16 07/29/16 Range/Units 09:10 09:10 12:13 RBC 2.90 L (3.80-5.40) m/uL Hgb 9.1 L D (11.4-16.0) gm/dL Hct 26.4 L (34.0-46.0) % Lymphocytes # 0.5 L (1.0-4.8) k/uL Sodium 135 L (137-145) mmol/L Potassium 3.2 L (3.5-5.1) mmol/L Carbon Dioxide 19 L (22-30) mmol/L Glucose 150 H (74-99) mg/dL POC Glucose (mg/dL) 145 H (75-99) mg/dL Calcium 7.1 L (8.4-10.2) mg/dL Total Protein 4.3 L (6.3-8.2) g/dL Albumin 2.2 L (3.5-5.0) g/dL 07/29/16 07/29/16 07/30/16 Range/Units 17:24 21:34 07:08 RBC (3.80-5.40) m/uL Hgb (11.4-16.0) gm/dL Hct (34.0-46.0) % Lymphocytes # (1.0-4.8) k/uL Sodium (137-145) mmol/L Potassium (3.5-5.1) mmol/L Carbon Dioxide (22-30) mmol/L Glucose (74-99) mg/dL POC Glucose (mg/dL) 139 H 182 H 116 H (75-99) mg/dL Calcium (8.4-10.2) mg/dL Total Protein (6.3-8.2) g/dL Albumin (3.5-5.0) g/dL Microbiology - Last 24 Hours (Table) 07/27/16 16:37 Urine Culture - Final Urine,Catheterized Escherichia coli Assessment and Plan (1) Dysphagia Narrative/Plan: 71-year-old female with persistent dysphagia 2 months duration with mid esophageal pressure after ingestion of foods without odynophagia status post CABG May 2016 with 20 kg weight loss. Status post EGD evaluation without evidence of mechanical obstruction. Etiology of dysphagia is unclear possible psychogenic. Megace instituted but no change in appetite at this point in time. Status: Acute Plan: 1. PICC line insertion. PEG tube tentatively scheduled later today. ECF discharge planning. Assessment and plan a care discussed with Dr. Dhaliwal.
[2016-07-30 09:47] LABS: Basophils % (A) 0 %; CH 31.3; CHCM 34.7; Eosinophils # (A) 0.1 k/uL (0-0.7); Eosinophils % (A) 1 %; HCT 27.2 % (34.0-46.0); HDW 3.41; HGB 9.4 gm/dL (11.4-16.0); Luc # (Auto) 0.05; Luc % (Auto) 1; Lymphocytes # (A) 0.6 k/uL (1.0-4.8); Lymphocytes % (A) 16 %; MCH 31.2 pg (25.0-35.0); MCHC 34.5 g/dL (31.0-37.0); MCV 90.5 fL (80.0-100.0); Mean Platelet Volume 9.5; Monocytes # (A) 0.1 k/uL (0-1.0); Monocytes % (A) 3 %; Neutrophils # (A) 3.1 k/uL (1.3-7.7); Neutrophils % (A) 78 %; Poikilocytosis Slight; RBC 3.01 m/uL (3.80-5.40); RDW 14.5 % (11.5-15.5); WBC (Perox) 4.44
[2016-07-30 09:53] LABS: ALT 40 U/L (9-52); AST 22 U/L (14-36); Alkaline Phosphatase 52 U/L (38-126); Blood Urea Nitrogen 16 mg/dL (7-17); Calcium 7.5 mg/dL (8.4-10.2); Carbon Dioxide 19 mmol/L (22-30); Glucose 113 mg/dL (74-99); Non-African American GFR(MDRD) >60 (>60 ml/min/1.73 sqM); Potassium 3.4 mmol/L (3.5-5.1); Sodium 136 mmol/L (137-145); Total Bilirubin 0.5 mg/dL (0.2-1.3); Total Protein 4.6 g/dL (6.3-8.2)
[2016-07-30] MEDS ORDERED: LIDOCAINE 2% INJ 20 MG/ML SQ ONE ×2 (09:53→09:54)
[2016-07-30 10:05] LABS: Anion Gap 12 mmol/L; Chloride 105 mmol/L (98-107)
[2016-07-30] MEDS ORDERED: PROPOFOL 10 MG/ML 20 ML VIAL IV ONE (10:43)
--- NOTE | 2016-07-30 10:43 | IR ---
EXAMINATION TYPE: IR cvc insert >=5 years DATE OF EXAM: 07/30/2016 10:36 AM COMPARISON: NONE CLINICAL HISTORY: Altered mental status, coronary artery disease, gastroenteritis and dehydration Nee ds long-term intravenous access for therapy. PROCEDURE: After informed consent, the skin overlying the left brachial vein was localized with ultrasound and n oted to be compressible and patent. An ultrasound image was obtained and submitted on the patient's chart. The overlying skin was prepped and draped and Lidocaine was used for local anesthesia. A ski n [place] was made with a scalpel. Access was gained to the vein under ultrasound guidance with a 21 ga uge needle and a 0.018 inch wire was advanced. Access site was dilated with Peel-Away sheath and cat heter tailored to the appropriate length and advanced such that the distal tip is at the cavoatrial j unction. Spot image was obtained verifying placement. Catheter was fixed to the skin with suture an d a sterile dressing was placed following hemostasis. Catheter was aspirated and flushed with saline . Patient was discharged in stable condition without complication.Maximal barrier technique is utili zed. Ultrasound image is documented on the chart. Ultrasound used with sterile technique. Fluoro time and fluoroscopic images submitted to document procedure: 13 intraoperative C-arm images d ocument the procedure, 0.3 minutes fluoroscopy time IMPRESSION: STATUS POST ULTRASOUND AND FLUOROSCOPIC GUIDED PICC LINE PLACEMENT, READY FOR USE. THIS PROCEDURE WAS PERFORMED BY THE UNDERSIGNED.
[2016-07-30] MEDS ORDERED: SODIUM CHLORIDE 0.9% 1,000 ML IV ONE ×2 (10:45→12:41)
--- NOTE | 2016-07-30 11:10 | P.PCN ---
Date of Procedure: 07/30/16 Procedure(s) Performed: Brief history: Patient is a 68-year-old pleasant scheduled for an EGD with PEG tube placement today. She was admitted to the hospital with decreased oral intake and dysphagia for the last 2 months duration associated progressive weight loss. The patient had CABG in May 2016 and following that he has been having multiple issues with dysphagia and decreased oral intake as well as decreased appetite. She had an upper endoscopy performed a week ago which did not show any significant pathology other than gastroesophageal reflux and a small hiatal hernia. He was evaluate by psychiatric during this hospitalization for possible depression. Because of persistent oral intake she is scheduled for an upper endoscopy with a PEG tube placement today. Prorocedure performed: EGD with PEG tube placement Preoperative diagnosis: Decreased oral intake and dysphagia IV sedation by anesthesia Procedure: After informed consent was obtained with the patient as well as the family the patient was brought into the endoscopy unit. IV conscious sedation was administered by anesthesia under continuous monitoring. The Olympus GF 160 video endoscope was inserted into the mouth and esophagus intubated without any difficulty and was gradually advanced to the stomach and duodenum. The bulb and second part of the duodenum was visualized which appeared normal. The scope at this time was withdrawn to the stomach adequately insufflated with air. Adequate transillumination was achieved onto the anterior abdominal wall. At the site of adequate transillumination and maximal finger indentation, on the anterior abdominal wall, this area was sterilely prepped and draped. One percent Xylocaine was infiltrated into the skin and a small incision was made. Trocar and cannula was passed through the incision into the stomach cavity. The trocar was removed. Guidewire was passed through the cannula into the stomach cavity which was held by the snare that was passed through the scope. The guidewire along with the scope was gently withdrawn from the stomach esophagus out of the mouth. A 20-[employer] PEG tube was passed over the guidewire and was gently advanced into the mouth and esophagus and stomach. With gentle traction the guidewire along with the PEG tube was pulled from the anterior abdominal wall until the internal bumper appeared to be in secure position. Repeat EGD was performed and the esophagus intubated without any difficulty and was advanced into the stomach. The internal bumper appeared to be in secure position. The visualized portions of the antrum body cardia and fundus of the stomach appeared normal. The esophagus was carefully examined as the scope was gradually being withdrawn which appeared normal. At this time external bumper was placed on the PEG tube closer to the anterior abdominal wall at 3 cm stephani. at this time the scope was gradually withdrawn. There was a small hiatal hernia noted. There was long symptomatic Danielson's esophagus identified extending from 30-40 cm from the incisors but biopsies were not done because of the fact the patient has been on Plavix. The patient tolerated the procedure well. Impression: Successful 20-[employer] PEG tube placement as described above. Small hiatal hernia/Danielson's esophagus. Recommendations: =Findings of this examination were discussed with the patient'. No family available at this time.. The patient will be started on tube feeds tomorrow. Post-PEG tube orders were written.
[2016-07-30 11:48] LABS: Glucose,Whole Blood 110 mg/dL (75-99)
[2016-07-30] MEDS: AMIODARONE 200 MG TAB PO SCH (12:45)
[2016-07-30] MEDS: CARVEDILOL 12.5 MG TAB PO SCH (12:45)
[2016-07-30] MEDS: LOSARTAN 50 MG TAB PO SCH (12:45)
[2016-07-30] MEDS: CYANOCOBALAMIN-FA-PYRIDOXINE 1 EACH TAB PO SCH (12:46)
[2016-07-30 17:06] LABS: Glucose,Whole Blood 120 mg/dL (75-99)
--- NOTE | 2016-07-30 17:06 | P.PN ---
Subjective 71-year-old female well-known to our service was admitted multiple times in the hospital with dehydration. Patient was admitted at least 2-3 times at this hospital and twice at [facility] for similar complaints. Patient underwent multiple studies in regards to dysphagia which is her underlying reason for dehydration. Patient has had no penetration noted on modified barium swallows. The speech therapist shira on the prior admission and Dr. 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 Patient was evaluated by a psychiatrist at that time as well. Patient was started on SSRI was informed that the diagnosis and speech therapist discussed intervention. Patient however is readmitted to the hospital with hyponatremia which appears to be hypovolemic and states that she is having multiple episodes of emesis upon discharge. Patient will also noted to have a troponin leak on admission however patient had a CABG within the last 10 weeks. Patient apparently also noticed that she has some difficulty in breathing and hence went to [facility]. Patient was thereafter transferred to our hospital due to acute kidney injury and episodes of nausea and vomiting. 07/28/2016 Patient has had a repeat workup of dysphagia again. It appears to be psychogenic in nature. Patient does have food in front of heard during my examination states that she is scared to eat the food at this time. Denies having any chest pain, difficulty breathing, nausea, vomiting at this time. 07/29/16 Was able to ambulate. No new overnight events. Undergoing PEG tube placement today. 07/30/2016 Patient apparently did not have an IV access hence a PICC line was placed. Patient underwent a PEG tube placement today. To be slightly confused however patient just returned from her procedure. Objective - Vital Signs Vital signs: Vital Signs Temp 96.3 F L 07/30/16 15:00 Pulse 62 07/30/16 15:00 Resp 18 07/30/16 15:00 BP 106/86 07/30/16 15:00 Pulse Ox 98 07/30/16 15:00 Intake & Output 07/29/16 07/30/16 07/30/16 18:59 06:59 18:59 Intake Total 100 Output Total 70 800 Balance -70 -800 100 Weight 83 kg Intake: IV 100 Output: Urine 70 800 Other: Voiding Method Indwelling Catheter Indwelling Catheter Indwelling Catheter # Bowel Movements 0 - Exam Physical exam slightly confused today Neck is supple no JVD Lungs good air entry clear to auscultation no rhonchi or wheezing Heart S1-S2 heard regular rate and rhythm no murmurs appreciated Abdomen is soft nontender no organomegaly bowel sounds are intact Neurologically cranial nerves II-12 grossly intact no focal motor or sensory deficits noted Skin no abnormalities appreciated - Labs CBC & Chem 7: 07/30/16 09:17 07/30/16 09:17 Labs: Abnormal Lab Results - Last 24 Hours (Table) 07/29/16 07/29/16 07/30/16 Range/Units 17:24 21:34 07:08 RBC (3.80-5.40) m/uL Hgb (11.4-16.0) gm/dL Hct (34.0-46.0) % Lymphocytes # (1.0-4.8) k/uL Sodium (137-145) mmol/L Potassium (3.5-5.1) mmol/L Carbon Dioxide (22-30) mmol/L Glucose (74-99) mg/dL POC Glucose (mg/dL) 139 H 182 H 116 H (75-99) mg/dL Calcium (8.4-10.2) mg/dL Total Protein (6.3-8.2) g/dL Albumin (3.5-5.0) g/dL 07/30/16 07/30/16 07/30/16 Range/Units 09:17 09:17 11:47 RBC 3.01 L (3.80-5.40) m/uL Hgb 9.4 L (11.4-16.0) gm/dL Hct 27.2 L (34.0-46.0) % Lymphocytes # 0.6 L (1.0-4.8) k/uL Sodium 136 L (137-145) mmol/L Potassium 3.4 L (3.5-5.1) mmol/L Carbon Dioxide 19 L (22-30) mmol/L Glucose 113 H (74-99) mg/dL POC Glucose (mg/dL) 110 H (75-99) mg/dL Calcium 7.5 L (8.4-10.2) mg/dL Total Protein 4.6 L (6.3-8.2) g/dL Albumin 2.4 L (3.5-5.0) g/dL Microbiology - Last 24 Hours (Table) 07/27/16 16:37 Urine Culture - Final Urine,Catheterized Escherichia coli Assessment and Plan Plan: #1 intractable nausea vomiting secondary to psychogenic dysphagia. PEG tube placement today.. #2 indeterminant troponin leak #3 history of CAD status post CABG #4 diabetes mellitus type 2 #5 history of hypertension #6 dyslipidemia #7 acute on CK D stage III #8 paroxysmal atrial fibrillation #9 hypokalemia #10 hypernatremia likely secondary to dehydration 11. Acute metabolic encephalopathy. Slightly worse today however patient just got back from her procedure likely effect of her anesthesia. Plan Feeding will be started tomorrow. Await till PEG feeds are up to go to monitor refeeding syndrome. She can be discharged thereafter rest of her vitals and exam is stable
[2016-07-30] MEDS: HYDROcodone/APAP 5-325MG 1 EACH TAB PO PRN (18:36)
[2016-07-30 20:56] LABS: Glucose,Whole Blood 115 mg/dL (75-99)
[2016-07-30] MEDS: ATORVASTATIN 80 MG TAB PO SCH (21:22)
[2016-07-30] MEDS: amLODIPine 5 MG TAB PO SCH (21:22)
[2016-07-31 07:45] LABS: Glucose,Whole Blood 114 mg/dL (75-99)
[2016-07-31] MEDS: INSULIN LISPRO (humaLOG) 300 UNIT/3 ML VIAL SQ SCH ×4 (08:12→21:43)
[2016-07-31] MEDS: CARVEDILOL 12.5 MG TAB PO SCH (08:16)
[2016-07-31] MEDS: POTASSIUM CHLORIDE ER 10 MEQ TAB.ER.PRT PO SCH (08:17)
[2016-07-31] MEDS: PANTOPRAZOLE 40 MG TABLET PO SCH (08:17)
[2016-07-31] MEDS: CLOPIDOGREL 75 MG TAB PO SCH (08:17)
[2016-07-31] MEDS: AMIODARONE 200 MG TAB PO SCH (08:17)
[2016-07-31] MEDS: CITALOPRAM HYDROBROMIDE 20 MG TAB PO SCH (08:17)
[2016-07-31] MEDS: HEPARIN SODIUM,PORCINE 5,000 UNIT/ML 1 ML VIAL SQ SCH ×2 (08:17→18:04)
[2016-07-31] MEDS: LOSARTAN 50 MG TAB PO SCH (08:17)
[2016-07-31] MEDS: NYSTATIN 100,000 UNIT/ML SUSP 500,000 UNIT/5 ML CUP PO SCH ×4 (08:18→21:36)
[2016-07-31] MEDS: MEGESTROL 400 MG/10 ML CUP PO SCH (08:18)
[2016-07-31] MEDS: IPRATROPIUM-ALBUTEROL 3 ML NEB INHALATION SCH ×4 (08:37→20:18)
[2016-07-31] MEDS: HYDROcodone/APAP 5-325MG 1 EACH TAB PO PRN (10:46)
--- NOTE | 2016-07-31 11:36 | PN ---
DATE OF SERVICE: 07/31/2016 The patient is a 71-year-old pleasant lady who was admitted to the hospital with poor oral intake, poor appetite, depression, and progressive weight loss following cardiac artery bypass surgery in May of 2016. Patient was extensively investigated and no obvious etiology for her dysphagia was identified and was thought it was psychogenic in nature. The patient underwent an EGD with a PEG tube placement yesterday and she is doing well. This morning, she denies any complaints. She reports no abdominal pain. No fever, chills or night sweats. On physical examination, she appears comfortable in no apparent distress. Vital signs are stable. Blood pressure is 130/59, pulse 82, temperature 97.4. HEENT examination unremarkable. Conjunctivae pink. Sclerae anicteric. Oral cavity, no lesions. NECK: No JVD or lymph node enlargement. Chest was clear to auscultation. HEART: Regular rate and rhythm. ABDOMEN: Soft. The PEG site region was seen, which appeared clean. The abdomen was benign. Bowel sounds are positive. No organomegaly. EXTREMITIES: No pedal edema. SKIN: No rashes. NEURO: Alert and oriented x3. No focal deficits. 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 The patient with decreased oral intake as well as dysphagia and despite multiple measures her oral intake was not improving over the last one month and had multiple hospitalizations for the same problem . She underwent an upper endoscopy with a PEG tube placement yesterday and doing well. RECOMMENDATIONS: The PEG tube can be used for her oral feeds today as per the dietary recommendations. Will sign off at this, please call us if needed.
[2016-07-31 11:44] LABS: Basophils % (A) 0 %; CH 31.3; CHCM 35.1; Eosinophils # (A) 0.1 k/uL (0-0.7); Eosinophils % (A) 3 %; HDW 3.51; Luc # (Auto) 0.04; Luc % (Auto) 2; Lymphocytes # (A) 0.4 k/uL (1.0-4.8); Lymphocytes % (A) 16 %; MCH 29.9 pg (25.0-35.0); MCHC 33.4 g/dL (31.0-37.0); MCV 89.5 fL (80.0-100.0); Mean Platelet Volume 9.7; Monocytes # (A) 0.1 k/uL (0-1.0); Monocytes % (A) 4 %; Neutrophils # (A) 1.8 k/uL (1.3-7.7); Neutrophils % (A) 75 %; Poikilocytosis Slight; RBC 2.57 m/uL (3.80-5.40); RDW 14.4 % (11.5-15.5); WBC 2.4 k/uL (3.8-10.6); WBC (Perox) 2.51
[2016-07-31 12:02] LABS: HGB 7.7 gm/dL (11.4-16.0)
[2016-07-31 12:03] LABS: ALT 39 U/L (9-52); AST 21 U/L (14-36); Alkaline Phosphatase 48 U/L (38-126); Anion Gap 13 mmol/L; Blood Urea Nitrogen 13 mg/dL (7-17); Calcium 7.1 mg/dL (8.4-10.2); Carbon Dioxide 14 mmol/L (22-30); Chloride 109 mmol/L (98-107); Glucose 132 mg/dL (74-99); Magnesium 1.2 mg/dL (1.6-2.3); Non-African American GFR(MDRD) >60 (>60 ml/min/1.73 sqM); Sodium 136 mmol/L (137-145); Total Bilirubin 0.5 mg/dL (0.2-1.3); Total Protein 4.1 g/dL (6.3-8.2)
[2016-07-31] MEDS: CYANOCOBALAMIN-FA-PYRIDOXINE 1 EACH TAB PO SCH (12:08)
[2016-07-31 12:11] LABS: Potassium 2.8 mmol/L (3.5-5.1)
[2016-07-31 12:45] LABS: Glucose,Whole Blood 132 mg/dL (75-99)
[2016-07-31] MEDS: POTASSIUM CHLORIDE ER 20 MEQ TAB.ER PO SCH ×2 (14:10→18:00)
[2016-07-31] MEDS: MAGNESIUM SULFATE-D5W PMX 1 GM in DEXTROSE/WATER 1 100ML.BAG IVPB SCH ×2 (14:12→21:35)
[2016-07-31] MEDS: POTASSIUM CHLORIDE 40 MEQ, LIDOCAINE 2% INJ 20 MG in SODIUM CHLORIDE 0.9% 250 ML IVPB SCH ×2 (15:13→23:43)
[2016-07-31 17:18] LABS: Glucose,Whole Blood 156 mg/dL (75-99)
[2016-07-31] MEDS: ONDANSETRON 4 MG/2 ML VIAL IVP PRN (17:44)
[2016-07-31] MEDS: amLODIPine 5 MG TAB PO SCH (21:35)
[2016-07-31] MEDS: ATORVASTATIN 80 MG TAB PO SCH (21:36)
[2016-07-31 21:43] LABS: Glucose,Whole Blood 127 mg/dL (75-99)
[2016-08-01] MEDS: HEPARIN SODIUM,PORCINE 5,000 UNIT/ML 1 ML VIAL SQ SCH ×4 (00:07→23:21)
[2016-08-01 07:31] LABS: Glucose,Whole Blood 140 mg/dL (75-99)
[2016-08-01] MEDS: CARVEDILOL 12.5 MG TAB PO SCH (07:47)
[2016-08-01] MEDS: PANTOPRAZOLE 40 MG TABLET PO SCH (07:47)
[2016-08-01] MEDS: INSULIN LISPRO (humaLOG) 300 UNIT/3 ML VIAL SQ SCH ×4 (07:47→21:17)
[2016-08-01] MEDS: MEGESTROL 400 MG/10 ML CUP PO SCH (07:48)
[2016-08-01] MEDS: AMIODARONE 200 MG TAB PO SCH (07:48)
[2016-08-01] MEDS: NYSTATIN 100,000 UNIT/ML SUSP 500,000 UNIT/5 ML CUP PO SCH ×4 (07:48→21:04)
[2016-08-01] MEDS: CITALOPRAM HYDROBROMIDE 20 MG TAB PO SCH (07:48)
[2016-08-01] MEDS: CLOPIDOGREL 75 MG TAB PO SCH (07:48)
[2016-08-01] MEDS: LOSARTAN 50 MG TAB PO SCH (07:48)
[2016-08-01] MEDS: POTASSIUM CHLORIDE ER 10 MEQ TAB.ER.PRT PO SCH (07:48)
[2016-08-01] MEDS: HYDROcodone/APAP 5-325MG 1 EACH TAB PO PRN ×2 (08:11→21:09)
[2016-08-01 09:55] LABS: Basophils % (A) 0 %; CH 31.1; CHCM 34.3; Eosinophils % (A) 1 %; HCT 24.7 % (34.0-46.0); HDW 3.31; HGB 8.3 gm/dL (11.4-16.0); Luc # (Auto) 0.05; Luc % (Auto) 2; Lymphocytes # (A) 0.5 k/uL (1.0-4.8); Lymphocytes % (A) 16 %; MCH 30.5 pg (25.0-35.0); MCHC 33.6 g/dL (31.0-37.0); MCV 90.8 fL (80.0-100.0); Mean Platelet Volume 8.7; Monocytes # (A) 0.1 k/uL (0-1.0); Monocytes % (A) 4 %; Neutrophils # (A) 2.4 k/uL (1.3-7.7); Neutrophils % (A) 77 %; RBC 2.72 m/uL (3.80-5.40); RDW 14.3 % (11.5-15.5); WBC 3.1 k/uL (3.8-10.6); WBC (Perox) 3.24
[2016-08-01 10:08] LABS: Anion Gap 12 mmol/L; Blood Urea Nitrogen 14 mg/dL (7-17); Carbon Dioxide 15 mmol/L (22-30); Chloride 110 mmol/L (98-107); Glucose 149 mg/dL (74-99); Non-African American GFR(MDRD) >60 (>60 ml/min/1.73 sqM); Potassium 4.5 mmol/L (3.5-5.1); Sodium 137 mmol/L (137-145)
--- NOTE | 2016-08-01 10:28 | PN ---
INTERVAL HISTORY: Ms. Hector is a 71-year-old female who is admitted to the hospital for the chief complaint of dysphagia. Patient has 2 to 3 admissions in the past 2 months at [facility] and here for the same complaint. Patient underwent speech and swallow evaluation and was noted to have psychogenic dysphagia and was started on SSRI. But, however with the patient was readmitted to the hospital with hyponatremia which is probably secondary to hypovolemia as she has had several episodes of emesis and has been admitted with dehydration. Patient also has troponin leak on admission and has a history of CABG done within the last 10 weeks. So after discussing all the treatment options the decision was made to have the patient PEG tube for her nutrition supplementation and the patient had the procedure done yesterday. The patient is confused at times and she is on also agitated on some occasions. Review of systems could not be done as the patient was very confused and agitated. On examination, patient's vital signs: Temperature 95.1, heart rate 55, respiratory rate 18, blood pressure 93/51, saturating at 98% on room air. GENERAL EXAMINATION: Patient is a confused and slightly agitated. HEAD: Atraumatic, normocephalic pupils, and reactive to light. NECK: No JVD. LUNGS: Clear to auscultation. HEART: S1, S2 heard. ABDOMEN: Soft. No organomegaly. Bowel sounds positive. TOP FRAME FITTER: No focal neurological deficits. SKIN: No rash. The patient's labs: White count of 2.4, hemoglobin is 7.7, platelets of 141. Sodium 138, potassium 2.8, chloride 109, bicarb 14, BUN 13, creatinine 0.50. Albumin is 2.1. ASSESSMENT AND PLAN: 1. Intractable nausea and vomiting secondary to psychogenic dysphagia status post PEG tube placement yesterday. 2. Indeterminate troponin leak. 3. History of coronary artery disease, status post coronary artery bypass graft. 4. Type 2 diabetes mellitus. 5. Hypertension. 6. Dyslipidemia. 7. Acute on chronic kidney failure. 8. Chronic kidney disease stage III. 9. Paroxysmal atrial fibrillation. 10. Hypokalemia. 11. Hypernatremia. 12. Encephalopathy, most likely acute metabolic encephalopathy. PLAN: The plan is to initiate the patient on PEG tube feeds. Continue with the rest of her medication regimen. The treatment plan was discussed in detail with the patient's daughter, who is at the bedside. Overall prognosis is guarded. Further recommendations to follow depending on the progress of the patient. ROSIOD
[2016-08-01] MEDS: ALPRAZolam 0.5 MG TAB PO PRN ×2 (10:44→21:10)
[2016-08-01] MEDS: IPRATROPIUM-ALBUTEROL 3 ML NEB INHALATION SCH ×4 (11:13→20:08)
[2016-08-01] MEDS: CYANOCOBALAMIN-FA-PYRIDOXINE 1 EACH TAB PO SCH (11:32)
[2016-08-01 12:38] LABS: Glucose,Whole Blood 172 mg/dL (75-99)
[2016-08-01 17:52] LABS: Glucose,Whole Blood 165 mg/dL (75-99)
--- NOTE | 2016-08-01 20:45 | PN ---
This 71-year-old female was admitted to the hospital with chief complaint of dysphagia. Patient had multiple admissions for the same in the past and eventually the diagnosis of psychogenic dysphagia and patient did receive a PEG tube a couple of days back and receiving tube feeds. But at baseline, patient has confusion. She is oriented to her name and date of but she thinks she is at home. REVIEW OF SYSTEMS: Constitutional: She denies having any fevers. RESPIRATORY: No cough. CARDIAC: No chest pain. GI: The patient complains of some abdominal discomfort. : As per nursing staff report, the patient had to have a Sandoval catheter placed yesterday as she was not making significant amount of but today we will give a trial of void and see how she does. Medications: Patient medications have been reviewed and she is on: 1. Tylenol. 2. Manning. 3. Duoneb. 4. Xanax. 5. Amiodarone. 6. Atorvastatin. 7. Amlodipine. 8. Dulcolax. 9. Coreg. 10. Ceftriaxone. 11. Celexa. 12. Plavix. 13. Folic acid. 14. Subcu heparin. 15. Hydralazine. 16. Sliding scale insulin. Patient's vitals: Temperature 96.9, heart rate 68, respiratory 20, blood pressure 124/79, saturating at 100% on room air. GENERAL EXAMINATION: Patient appears to be in no acute distress. HEAD: Atraumatic, normocephalic. Pupils are equal and reactive to light. NECK: No JVD. Clear to auscultation. HEART: S1, S2 heard. ABDOMEN: Soft and bowel sounds are positive. No organomegaly. FISHING TOOL SUPERVISOR: No focal deficits. The patient has a PEG tube in place. No signs of active infection around the PEG tube placement, or bleeding. SKIN: No rash. Patient's labs: White count of 3.1, hemoglobin is 8.3, platelets of 168, sodium 137, potassium 4.5, chloride 110, bicarb 15, BUN 14, creatinine 0.50. ASSESSMENT AND PLAN: 1. Intractable nausea and vomiting most likely secondary to psychogenic dysphagia status post PEG tube placement 07/30/2016. 2. Indeterminate troponin leak. 3. History of coronary artery disease, status post coronary artery bypass graft. 4. Type 2 diabetes mellitus. 5. Hypertension. 6. Dyslipidemia. 7. Acute on chronic kidney disease. 8. Chronic kidney disease stage III. 9. Paroxysmal atrial fibrillation. 10. Hypokalemia. 11. Hypernatremia. 12. Encephalopathy most likely secondary to anoxic injury in the past. PLAN: The plan is to continue the patient on the current medication regimen, continue to see how she does with the initiation of PEG tube feeds. filter worker on board and probably discharge the patient to facility tomorrow. Further recommendations depending on the progress of the patient.
[2016-08-01] MEDS: amLODIPine 5 MG TAB PO SCH (21:04)
[2016-08-01] MEDS: ATORVASTATIN 80 MG TAB PO SCH (21:04)
[2016-08-01 21:16] LABS: Glucose,Whole Blood 128 mg/dL (75-99)
[2016-08-02 07:51] LABS: Glucose,Whole Blood 157 mg/dL (75-99)
[2016-08-02 07:54] VITALS: BP 98/58; TEMP 97.8
[2016-08-02] MEDS: IPRATROPIUM-ALBUTEROL 3 ML NEB INHALATION SCH ×2 (08:53→12:34)
[2016-08-02 09:08] VITALS: PULSE 68
[2016-08-02] MEDS: LOSARTAN 50 MG TAB PO SCH (09:20)
[2016-08-02] MEDS: HEPARIN SODIUM,PORCINE 5,000 UNIT/ML 1 ML VIAL SQ SCH (09:24)
[2016-08-02] MEDS: CITALOPRAM HYDROBROMIDE 20 MG TAB PO SCH (09:24)
[2016-08-02] MEDS: NYSTATIN 100,000 UNIT/ML SUSP 500,000 UNIT/5 ML CUP PO SCH ×2 (09:24→12:33)
[2016-08-02] MEDS: CLOPIDOGREL 75 MG TAB PO SCH (09:24)
[2016-08-02] MEDS: MEGESTROL 400 MG/10 ML CUP PO SCH (09:24)
[2016-08-02] MEDS: POTASSIUM CHLORIDE ER 10 MEQ TAB.ER.PRT PO SCH (09:24)
[2016-08-02] MEDS: PANTOPRAZOLE 40 MG TABLET PO SCH (09:24)
[2016-08-02] MEDS: AMIODARONE 200 MG TAB PO SCH (09:24)
[2016-08-02] MEDS: CARVEDILOL 12.5 MG TAB PO SCH (09:25)
[2016-08-02] MEDS: INSULIN LISPRO (humaLOG) 300 UNIT/3 ML VIAL SQ SCH ×2 (09:26→12:32)
[2016-08-02] MEDS: HYDROcodone/APAP 5-325MG 1 EACH TAB PO PRN (09:40)
[2016-08-02 11:20] VITALS: BMI 29.9
[2016-08-02 11:45] VITALS: RESP 18
[2016-08-02] MEDS: CYANOCOBALAMIN-FA-PYRIDOXINE 1 EACH TAB PO SCH (12:32)
[2016-08-02 12:37] LABS: Glucose,Whole Blood 174 mg/dL (75-99)
--- NOTE | 2016-08-02 15:07 | DS ---
DATE OF ADMISSION: 07/22/2016 DATE OF DISCHARGE: HOSPITAL COURSE: Ms. Hector is a 71-year-old female with significant past medical history of coronary artery disease, status post coronary artery bypass graft, hypertension, hyperlipidemia, type 2 diabetes mellitus, chronic kidney disease, stage III, paroxysmal atrial fibrillation, admitted to the hospital with a chief complaint of dysphagia. The patient has been admitted on and off for the same complaint in the past one month. Patient had EGD, swallow evaluation and all the work-up done for her and finally it was recommended that it is Psychogenic dysphagia and incoordination with Gastroenterology. The patient did get PEG tube placed. The PEG tube has been functioning well for the past 2 days with no residuals. In the interim, the patient developed a urinary tract infection. Cultures positive for E. coli. She has been treated with ceftriaxone. We will be continued on Ceftin for 5 more days. The patient's rest of the home medications have been continued during the hospital course. Patient's mentation and has been affected since having the coronary artery bypass grafting, probably anoxic brain injury. The patient has periods of confusion and lucid states. But she is not able to take care of herself. She is pretty much bed bound. Patient had a PICC line placed on 07/30/2016 as she has poor peripheral access. Patient is being transferred to [facility] facility today. DISCHARGE DIAGNOSIS(ES): 1. Intractable nausea and vomiting secondary to psychogenic dysphagia status post peg tube placement 07/30/2016. 2. History of coronary artery disease, status post coronary artery bypass grafting. 3. Acute urinary tract infection with Escherichia coli. 4. Urinary retention and currently being straight cathed. 5. Type 2 diabetes mellitus. 6. Hypertension. 7. Hyperlipidemia. 8. Acute on chronic kidney disease, resolved. 9. Chronic kidney disease, Stage III. 10. Paroxysmal atrial fibrillation. 11. Hypokalemia. Resolved. 12. Hyponatremia, resolved. 13. Encephalopathy, most likely secondary to Anoxic brain injury in the past. 14. Chronic debility. PATIENT'S DISCHARGE MEDICATIONS: 1. Metformin 500 mg p.o. b.i.d. 2. Aspirin 81 mg p.o. daily. 3. Dulcolax 10 mg rectal daily p.r.n. for constipation. 4. DuoNeb inhalations 4 times a day. 5. Losartan 25 milligrams p.o. daily. 6. Protonix 40 mg p.o. daily. 7. Potassium chloride 10 mg p.o. daily. 8. Atorvastatin 80 mg p.o. q.h.s. 9. Lasix 40 mg p.o. daily. 10. Tylenol 650 mg p.r.n. for fevers/pain. 11. Coreg 25 milligrams p.o. daily. 12. [facility] 7.5/325 1 tablet p.o. q4h p.r.n. for pain. 13. Losartan 50 mg p.o. daily. 14. Megace 100 mg p.o. daily. 15. Amlodipine 5 mg p.o. q.h.s. 16. Plavix 75 mg p.o. daily. 17. Ceftin 500 mg p.o. b.i.d. for 5 days. 18. Xanax 0.5 mg p.o. 3 times a day. 19. Amiodarone 200 mg p.o. daily. 20. Nystatin oral suspension 4 mg 4 times a day for 7 days. 21. Senna 1 tablet p.o. q.h.s. 22. Nitrostat 0.4 mg sublingually q.5 minutes p.r.n. for chest pain. FOLLOW-UP: 1. Patient is advised to get repeat labs in 2 days. 2. The patient has urinary retention so she should be straight cathed every eight hours. 3. The patient has a PICC line in place which should be discontinued after 7 days. 4. Diet: Patient to follow a cardiac diet. PLAN: Patient is being sent to [facility] with the above instructions. More than 40 minutes spent towards the discharge of the patient. ROSIOD
== END 2016-08-02 15:44 | DRG 882 ==
LOC: EC 15:18 → 6SEL 18:48 → OBSVTOIN 07-22 15:01 → 4MS4W 07-27 15:42
PROVIDERS: ADMIT Hospitalist; ATTEND Hospitalist
PROC: 0DB68ZX Excision of Stomach, Via Natural or Artificial Opening Endoscopic, Diagnostic (ICD-10-PCS; principal; 2016-07-23 09:05)
PROC: 0DH63UZ Insertion of Feeding Device into Stomach, Percutaneous Approach (ICD-10-PCS; 2016-07-30 09:30)
PROC: 02HV33Z Insertion of Infusion Device into Superior Vena Cava, Percutaneous Approach (ICD-10-PCS; 2016-07-30 09:30)
PROC: B548ZZA Ultrasonography of Superior Vena Cava, Guidance (ICD-10-PCS; 2016-07-30 09:30)
PROC: B5181ZA Fluoroscopy of Superior Vena Cava using Low Osmolar Contrast, Guidance (ICD-10-PCS; 2016-07-30 09:30)
DX: F45.8 Other somatoform disorders (principal); G93.41 Metabolic encephalopathy; N17.9 Acute kidney failure, unspecified; E44.0 Moderate protein-calorie malnutrition; F03.90 Unspecified dementia, unspecified severity, without behavioral disturbance, psychotic disturbance, mood disturbance, and anxiety; E11.22 Type 2 diabetes mellitus with diabetic chronic kidney disease; I48.0 Paroxysmal atrial fibrillation; I50.9 Heart failure, unspecified; I13.0 Hypertensive heart and chronic kidney disease with heart failure and stage 1 through stage 4 chronic kidney disease, or unspecified chronic kidney disease; E87.1 Hypo-osmolality and hyponatremia; N39.0 Urinary tract infection, site not specified; E83.42 Hypomagnesemia; E78.5 Hyperlipidemia, unspecified; E86.0 Dehydration; E86.1 Hypovolemia; E87.6 Hypokalemia; F09 Unspecified mental disorder due to known physiological condition; F32.9 Major depressive disorder, single episode, unspecified; F43.20 Adjustment disorder, unspecified; B96.20 Unspecified Escherichia coli [E. coli] as the cause of diseases classified elsewhere; I25.10 Atherosclerotic heart disease of native coronary artery without angina pectoris; K21.9 Gastro-esophageal reflux disease without esophagitis; K22.70 Barrett's esophagus without dysplasia; K29.60 Other gastritis without bleeding; R33.9 Retention of urine, unspecified; K44.9 Diaphragmatic hernia without obstruction or gangrene; H55.00 Unspecified nystagmus; N18.3 Chronic kidney disease, stage 3 (moderate); Z79.01 Long term (current) use of anticoagulants; Z79.02 Long term (current) use of antithrombotics/antiplatelets; I25.2 Old myocardial infarction; Z79.82 Long term (current) use of aspirin; Z82.49 Family history of ischemic heart disease and other diseases of the circulatory system; Z85.3 Personal history of malignant neoplasm of breast; Z87.891 Personal history of nicotine dependence; Z95.1 Presence of aortocoronary bypass graft; Z79.899 Other long term (current) drug therapy; Z74.01 Bed confinement status
CPT/HCPCS: 36415; 36569; 43239; 43246; 51702; 70450; 70496; 70498; 70551; 71020; 76937; 77001; 80048; 80051; 80053; 80061; 80299; 81001; 81003; 82565; 83036; 83090; 83605; 83735; 83880; 84132; 84134; 84484; 84520; 85025; 85027; 87077; 87086; 87186; 87493; 88305; 88342; 93005; 93306; 94640; 95819; 96360; 99153; 99285